=== PATIENT | male | born 1955 | race Two or more races ===

== ENCOUNTER 2024-02-27 09:17 | Inpatient (IN) | payer MEDICARE, MEDICAID, SELFPAY ==
[2024-02-27] VITALS (13 sets, daily range): BP systolic 115–171; BP diastolic 65–98; PULSE 71–104; RESP 13–21; TEMP 36.3–39.2; O2SAT 95–99; BMI 27.3
--- NOTE | 2024-02-27 09:33 | XR_ITS ---
Examination: CT brain head without contrast. 2-D sagittal coronal reconstructions Date and time of exam:February 27, 2024 1020 hours INDICATIONS: Patient fell today with injury to the head, head pain CTDI: vol (mGy):57.1 DLP: (mGycm):1241 Technique: Multiple CT axial sections of the brain have been obtained, 5 mm slice thickness. Contrast has not been administered. 2-D sagittal, coronal reconstructions have been obtained Low dose protocols were performed. One or more of the following dose reduction techniques were used; automated exposure control, adjustment of the mA and/or KV according to patient size, use of iterative reconstruction technique. Findings: No significant ventricular enlargement. Intra-axial or extra-axial hemorrhage density is not seen. No mass effect or midline shift Basal cisterns are not remarkable. Fourth ventricle is midline. Acute right frontal bone fracture extending to the superior orbital rim, superior orbital rim portion of the fracture axial image 29, the frontal bone fracture extending all the way to axial image 11 with mild associated scalp swelling IMPRESSION: Negative for acute hemorrhage mass effect or midline shift Right frontal nondisplaced skull fracture extending from the upper right frontal bone to the right supraorbital rim
--- NOTE | 2024-02-27 09:34 | XR_ITS ---
Examination: CT thoracic spine, without contrast. 2-D sagittal reconstructions. 2-D coronal reconstructions. 3-D reconstructions. Date and time of exam:February 27, 2024 1029 hours INDICATIONS: Patient fell today with injury to the upper back, upper back pain CTDI: vol (mGy):42.5 DLP: (mGycm):1778 Technique: Multiple 1.25 mm axial sections of the thoracic spine without intravenous contrast have been obtained. 2-D sagittal and coronal reconstructions have been obtained. 3-D reconstructions have been obtained. Low dose protocols were performed. One or more of the following dose reduction techniques were used; automated exposure control, adjustment of the mA and/or KV according to patient size, use of iterative reconstruction technique. Findings: Adequate alignment thoracic vertebral bodies on the lateral view Mineralization of the anterior longitudinal ligament No acute thoracic fracture No focal thoracic disc protrusion IMPRESSION: No acute thoracic fracture
--- NOTE | 2024-02-27 09:34 | XR_ITS ---
Examination: CT cervical spine without contrast 2-D sagittal reconstructions 2-D coronal reconstructions 3-D reconstructions. Exam date and time:February 27, 2024 1020 hours INDICATIONS: Patient fell today with injury to the neck, neck pain CTDI:vol (mGy) 14.2 DLP: (mGycm) 326 Technique: Multiple 2 mm axial sections of the cervical spine have been obtained. The coronal and sagittal reconstructions have been obtained. 3-D reconstructions have been obtained. Low dose protocols were performed. One or more of the following dose reduction techniques were used; automated exposure control, adjustment of the mA and/or KV according to patient size, use of iterative reconstruction technique. Findings: Axial sections demonstrate intact base of the skull. C1 exhibit satisfactory relationship to the odontoid. No acute cervical vertebral body fracture seen. Alignment posterior spinous processes satisfactory. Impression: No acute cervical fracture.
--- NOTE | 2024-02-27 09:34 | XR_ITS ---
Examination: CT maxillofacial, without intravenous contrast. 2-D sagittal reconstructions. 3-D reconstructions. Date and time of exam:February 27, 2024 10:20 AM INDICATIONS: Patient fell today with injury to the face, facial pain CTDI: vol (mGy):16.5 DLP: (mGycm):327 Technique: Multiple axial images of maxillofacial region, 3.0 mm slice thickness. 2-D sagittal and coronal reconstructions. 3-D reconstructions. Low dose protocols were performed. One or more of the following dose reduction techniques were used; automated exposure control, adjustment of the mA and/or KV according to patient size, use of iterative reconstruction technique. Findings: Frontal bone frontal sinuses intact Orbital rims intact The optic globes exhibit symmetry No nasal bone fracture No depression zygomatic arches Pterygoid plates maxilla and the mandible intact IMPRESSION: No acute facial fracture.
--- NOTE | 2024-02-27 09:34 | XR_ITS ---
Examination: CT lumbar spine, without contrast. 2-D sagittal reconstructions. 2-D coronal reconstructions. 3-D reconstructions. Date and time of exam:February 27, 2024 1029 hours INDICATIONS: Patient fell today with injury to the lower back, lower back pain CTDI: vol (mGy):50.6 DLP: (mGycm):1568 Technique: Multiple 1.25 mm axial sections of the lumbar spine without intravenous contrast have been obtained. 2-D sagittal and coronal reconstructions have been obtained. 3-D reconstructions have been obtained. Low dose protocols were performed. One or more of the following dose reduction techniques were used; automated exposure control, adjustment of the mA and/or KV according to patient size, use of iterative reconstruction technique. Findings: Prominent lumbar spondylosis Adequate alignment lumbar vertebral bodies on the lateral view No lumbar vertebral body compression fracture Lumbar pedicles, laminae, transverse and posterior spinous processes intact L5-S1 4 mm central lumbar disc bulge L4-L5 moderate overall spinal stenosis, 4 mm central lumbar disc bulge prominent facet arthropathy and thickening of ligamenta flava circumferentially narrowing the thecal sac including moderate left L4 ganglionic compression L3-L4 no disc protrusion L2-L3 moderate overall spinal stenosis, primarily facet arthropathy and thickening of ligamentum flavum IMPRESSION: No acute lumbar fracture
--- NOTE | 2024-02-27 09:34 | XR_ITS ---
Examination: CT chest, without intravenous contrast. CT abdomen, without intravenous contrast. CT pelvis, without intravenous contrast. 2-D sagittal and coronal reconstructions. 3-D reconstructions. Date and time of exam:February 27, 2024 1027 hours INDICATIONS: Patient fell today with injury to the chest and abdomen, chest pain abdomen pain CTDI vol (mgy) 17.5 DLP (MGycm)1420 Technique: Multiple CT images, 3.0 mm slice thickness, obtained chest, abdomen, pelvis, with the high-resolution 64 slice scanner.. Sagittal and coronal 2-D reconstructions are obtained. 3-D reconstructions Low dose protocols were performed. One or more of the following dose reduction techniques were used; automated exposure control, adjustment of the mA and/or KV according to patient size, use of iterative reconstruction technique. Findings: Transverse dimension ascending thoracic aorta 4.3 cm Thoracic aorta pulmonary arteries intact No hemopericardium No pneumothorax Opacity both lung bases, greater at the left lung base The manubrium and the body the sternum, thoracic and lumbar vertebral bodies appear intact Ribs appear intact No liver splenic or renal laceration, no perinephric hematoma Abdominal aorta intact, no free blood in the abdomen Cholelithiasis, negative for cholecystitis Negative for pneumoperitoneum No bowel obstruction Normal appendix No diverticulitis Urinary bladder intact No significant prostatomegaly Hips bones of the pelvis sacral segments intact IMPRESSION: Bibasilar opacity most consistent with pneumonia, but clinical correlation advised Mild aneurysmal dilatation ascending thoracic aorta Thoracic aorta pulmonary arteries intact No hemopericardium pneumothorax or hemothorax No abdominal parenchymal laceration Abdominal aorta intact No free blood in the abdomen Osseous structures appear intact
--- NOTE | 2024-02-27 10:16 | PD.EDFALL ---
ED Fall Injury RME/HPI General Chief Complaint: Fall Stated Complaint: FALL Time Seen by Provider: 02/27/24 09:28 Source: patient Arrival date/time: 02/27/24 09:17 Mode of arrival: EMS Limitations: no limitations RME / HPI RME / HPI Narrative: This section includes all my notes and documentations, including HPI, PE, MDM, Procedure Notes, and PLAN. Yuriy Hidalgo MD HPI: 68 year old male with history of hypertension presents to the ED BIBA for evaluation of back pain today. States about 4 days ago suffered a mechanical GLF while raking leaves. States he fell forward and since then has had pain to his lower back that radiates down both lower extremities. States in the past with previous falls, his pains resolved within a few days. However, noted pain today is not improving, prompting calling 911. Landed on right side of the face. No loss of consciousness. No headache or dizziness. Denies numbness/tingling/weakness. No other symptoms reported. ROS: Respiratory: negative except as documented in HPI. Gastrointestinal: negative except as documented in HPI. Genitourinary: negative except as documented in HPI. Musculoskeletal: negative except as documented in HPI. Skin: negative except as documented in HPI. Neurological: negative except as documented in HPI. Physical Exam: General: Alert and oriented. Writhing in pain. Eyes: Conjunctivae and lids clear. EOMI. PERRL. ENT: No nasal congestion. Pharynx normal. Tympanic membrane normal bilaterally. Neck: Supple. No tenderness. Heart: RRR. Lungs: No respiratory distress. Good air movement. No rhonchi, wheezing, rales. Chest: No tenderness. Abdomen: Soft and nontender. Normal bowel sounds. No distension. No rebound or guarding. Back: No tenderness. Legs: No clubbing, cyanosis, edema. Skin: Warm and dry. Neuro: Alert and oriented X 3. Cranial Nerves II-XII grossly intact. No peripheral motor deficits. Musculoskeletal: All major joints and bones are not tender with no limited ROM. I reviewed EMS notes. I reviewed all diagnostic test results. My interpretation of the chest x-ray is no acute findings. My review of the CT scan reports is pneumonia and skull fracture. Blood tests and urine tests remarkable for WBC 16.3 and UA showing 4+ bacteria. At this point, diagnoses include sepsis, UTI, pneumonia, mechanical fall, skull fracture, back pain. Treatment here included IV fluid, Rocephin, Zithromax, Tylenol, ibuprofen, and morphine. No significant improvement noted subjectively and objectively. I discussed the case with our hospitalist. About the presentation and exam and diagnostics and treatments here. And need of further care in the hospital. Will accept the patient. Yuriy Hidalgo MD Related Data Home Medications ?Medication ?Instructions ?Recorded ?Confirmed Lisinopril * (ZESTRIL *) PO QDAY #0 tabs 07/14/15 tramadol 50 mg tablet (Ultram) 50 mg PO Q4HR PRN PAIN #0 tabs 07/14/15 Allergies Allergy/AdvReac Type Severity Reaction Status Date / Time No Known Allergies Allergy Verified 02/27/24 09:34 Review of Systems Review of Systems Systems Reviewed: All systems reviewed, normal except as documented Past Medical History Past Medical History CARDIAC: Negative Congestive Heart Failure RESPIRATORY: Positive Sleep Apnea; Negative Chronic Obstructive Pulmonary Disease (COPD) GENITOURINARY: Negative Renal Disease ENDOCRINE: Negative Diabetes Mellitus Type 1 or Diabetes Mellitus Type 2 Social History SMOKING STATUS: Never smoker ED Exam Narrative Physical exam: As noted in HPI General Limitations: Present no limitations Course Quality Measures Current suspected stage: sepsis Possible source: genitourinary Blood cultures ordered: completed in ED Antibiotic ordered: Yes Pertinent labs: 02/27/24 11:12 Lactic Acid 1.8 mMol/L (0.4-2.0) Procalcitonin < 0.04 ng/ml (0.0-0.49) sepsis Orders Category Date Time Status Admit to Inpatient Status Routine Admission 02/27/24 15:41 Active Patient Condition Routine Admission 02/27/24 15:39 Ordered Bedrest NOW Care 02/27/24 15:41 Active Bedside COVID-19 Antigen Test NOW Care 02/27/24 10:27 Active Bedside Influenza A&B Antigen Test NOW Care 02/27/24 10:27 Completed COVID-19 Screening Questionnaire NOW Care 02/27/24 15:27 Active Decision to Admit X1 Care 02/27/24 15:27 Completed Neuro Check Q4H Care 02/27/24 15:39 Active Notify provider NEEDED Care 02/27/24 15:39 Active Saline [Insert IV] NOW Care 02/27/24 11:18 Active Referral - Press Assistant And Feeder Stat Cons 02/27/24 12:30 Active Diet Regular Diet 02/27/[address] cervical spine wo con Stat Exams 02/27/24 09:[address] chest abdomen pelvis wo Stat Exams 02/27/24 09:[address] facial bones wo con Stat Exams 02/27/24 09:[address] head/brain wo con Stat Exams 02/27/24 09:[address] lumbar spine wo con Stat Exams 02/27/24 09:[address] thoracic spine wo con Stat Exams 02/27/24 09:34 Completed XR chest 1V portable Stat Exams 02/27/24 13:12 Completed Basic Metabolic Panel AM DRAW Lab 02/28/24 05:00 Ordered Basic Metabolic Panel AM DRAW Lab 02/29/24 05:00 Ordered Basic Metabolic Panel AM DRAW Lab 03/01/24 05:00 Ordered Blood Culture (Lab) Stat Lab 02/27/24 11:12 Received CBC AM DRAW Lab 02/28/24 05:00 Ordered CBC AM DRAW Lab 02/29/24 05:00 Ordered CBC AM DRAW Lab 03/01/24 05:00 Ordered CBC Stat Lab 02/27/24 11:12 Completed CMP [Comprehensive Metabolic Panel] Stat Lab 02/27/24 11:12 Completed Lactate (Lactic Acid) Stat Lab 02/27/24 11:12 Completed Magnesium AM DRAW Lab 02/28/24 05:00 Ordered Magnesium Stat Lab 02/27/24 11:12 Completed Procalcitonin Stat Lab 02/27/24 11:12 Completed RSV [Respiratory Syncytial Virus Ag] Stat Lab 02/27/24 10:28 Ordered Strep A Rapid Stat Lab 02/27/24 10:27 Ordered UA [Urinalysis] Stat Lab 02/27/24 11:33 Completed Urine Culture Routine Lab 02/27/24 11:33 Received Acetaminophen Tab [Tylenol Tab] Med 02/27/24 10:26 Discontinued 1,000 mg PO X1 ONE Azithromycin Inj [Zithromax Inj] 500 mg Med 02/27/24 11:45 Discontinued Sodium Chloride 0.9% 250 ml [Ns] 250 ml IV X1 Heparin Inj Med 02/27/24 22:00 Active 5,000 unit SC Q8HR Ibuprofen Tab [Motrin Tab] Med 02/27/24 10:26 Discontinued 800 mg PO X1 ONE Morphine Inj Med 02/27/24 09:32 Discontinued 10 mg IM X1 ONE Morphine Inj Med 02/27/24 11:10 Discontinued 6 mg IVP X1 ONE Ondansetron Inj [Zofran Inj] Med 02/27/24 15:39 Active 4 mg IV Q6H PRN Ringers Lactated 1000 ml [Lactated Ringers] 1,000 ml Med 02/27/24 15:45 Active IV 75 mls/hr Sodium Chloride 0.9% 1000 ml [Ns] 1,000 ml Med 02/27/24 11:18 Discontinued IV 999 mls/hr Sodium Chloride 0.9% 1000 ml [Ns] 1,000 ml Med 02/27/24 12:54 Discontinued IV 999 mls/hr cefTRIAXone/D5w 1gm IV premix [Rocephin/D5w 1gm IV Med 02/28/24 09:00 Active premix] 50 ml IV QDAY cefTRIAXone/D5w 1gm IV premix [Rocephin/D5w 1gm IV Med 02/27/24 11:18 Discontinued premix] 50 ml IV X1 Code Status Routine Oth 02/27/24 15:39 Ordered Vital Signs Vital signs: Vital Signs Temperature 102.5 F H 02/27/24 09:56 Pulse Rate 94 02/27/24 09:56 Respiratory Rate 19 02/27/24 09:56 Blood Pressure 171/98 H 02/27/24 09:56 Pulse Oximetry (%) 97 02/27/24 09:56 Oxygen Delivery Method Room Air 02/27/24 09:56 Pulse ox is 97% on room air which is adequate. Fall MDM Narrative MDM Narrative:: Melissa Fong am scribing for and in the presence of Dr. Hidalgo. Patient data External records reviewed:: EMS form Clinical information provided by:: patient and EMS Social determinants that could affect healthcare access:: none Patient has the following chronic illnesses:: None reported How is presenting disease/condition affected by chronic disease/condition?: uneffected by Evaluation data The following diagnostics were reviewed and interpreted by me:: lab results and radiology exam(s) Lab and/or radiology exams considered but not ordered:: None Interpretation Summary: Ordering Physician: Yuriy Hidalgo MD Date of Service: 02/27/24 Procedure(s): CT head/brain wo con Accession Number(s): [id number] cc: Yuriy Hidalgo MD; Zackery Arteaga MD~ Examination: CT brain head without contrast. 2-D sagittal coronal reconstructions Date and time of exam:February 27, 2024 1020 hours INDICATIONS: Patient fell today with injury to the head, head pain CTDI: vol (mGy):57.1 DLP: (mGycm):1241 Technique: Multiple CT axial sections of the brain have been obtained, 5 mm slice thickness. Contrast has not been administered. 2-D sagittal, coronal reconstructions have been obtained Low dose protocols were performed. One or more of the following dose reduction techniques were used; automated exposure control, adjustment of the mA and/or KV according to patient size, use of iterative reconstruction technique. Findings: No significant ventricular enlargement. Intra-axial or extra-axial hemorrhage density is not seen. No mass effect or midline shift Basal cisterns are not remarkable. Fourth ventricle is midline. Acute right frontal bone fracture extending to the superior orbital rim, superior orbital rim portion of the fracture axial image 29, the frontal bone fracture extending all the way to axial image 11 with mild associated scalp swelling IMPRESSION: Negative for acute hemorrhage mass effect or midline shift Right frontal nondisplaced skull fracture extending from the upper right frontal bone to the right supraorbital rim Dictated By: Zackery Arteaga MD Signed By: <Electronically signed by Zackery Arteaga MD in OV> 02/27/24 1132 Ordering Physician: Yuriy Hidalgo MD Date of Service: 02/27/24 Procedure(s): CT cervical spine wo con Accession Number(s): [id number] cc: Yuriy Hidalgo MD; Zackery Arteaga MD~ Examination: CT cervical spine without contrast 2-D sagittal reconstructions 2-D coronal reconstructions 3-D reconstructions. Exam date and time:February 27, 2024 1020 hours INDICATIONS: Patient fell today with injury to the neck, neck pain CTDI:vol (mGy) 14.2 DLP: (mGycm) 326 Technique: Multiple 2 mm axial sections of the cervical spine have been obtained. The coronal and sagittal reconstructions have been obtained. 3-D reconstructions have been obtained. Low dose protocols were performed. One or more of the following dose reduction techniques were used; automated exposure control, adjustment of the mA and/or KV according to patient size, use of iterative reconstruction technique. Findings: Axial sections demonstrate intact base of the skull. C1 exhibit satisfactory relationship to the odontoid. No acute cervical vertebral body fracture seen. Alignment posterior spinous processes satisfactory. Impression: No acute cervical fracture. Dictated By: Zackery Arteaga MD Signed By: <Electronically signed by Zackery Arteaga MD in OV> 02/27/24 1127 Ordering Physician: Yuriy Hidalgo MD Date of Service: 02/27/24 Procedure(s): CT chest abdomen pelvis wo Accession Number(s): [id number] cc: Yuriy Hidalgo MD; Zackery Arteaga MD~ Examination: CT chest, without intravenous contrast. CT abdomen, without intravenous contrast. CT pelvis, without intravenous contrast. 2-D sagittal and coronal reconstructions. 3-D reconstructions. Date and time of exam:February 27, 2024 1027 hours INDICATIONS: Patient fell today with injury to the chest and abdomen, chest pain abdomen pain CTDI vol (mgy) 17.5 DLP (MGycm)1420 Technique: Multiple CT images, 3.0 mm slice thickness, obtained chest, abdomen, pelvis, with the high-resolution 64 slice scanner.. Sagittal and coronal 2-D reconstructions are obtained. 3-D reconstructions Low dose protocols were performed. One or more of the following dose reduction techniques were used; automated exposure control, adjustment of the mA and/or KV according to patient size, use of iterative reconstruction technique. Findings: Transverse dimension ascending thoracic aorta 4.3 cm Thoracic aorta pulmonary arteries intact No hemopericardium No pneumothorax Opacity both lung bases, greater at the left lung base The manubrium and the body the sternum, thoracic and lumbar vertebral bodies appear intact Ribs appear intact No liver splenic or renal laceration, no perinephric hematoma Abdominal aorta intact, no free blood in the abdomen Cholelithiasis, negative for cholecystitis Negative for pneumoperitoneum No bowel obstruction Normal appendix No diverticulitis Urinary bladder intact No significant prostatomegaly Hips bones of the pelvis sacral segments intact IMPRESSION: Bibasilar opacity most consistent with pneumonia, but clinical correlation advised Mild aneurysmal dilatation ascending thoracic aorta Thoracic aorta pulmonary arteries intact No hemopericardium pneumothorax or hemothorax No abdominal parenchymal laceration Abdominal aorta intact No free blood in the abdomen Osseous structures appear intact Dictated By: Zackery Arteaga MD Signed By: <Electronically signed by Zackery rAteaga MD in OV> 02/27/24 1125 Ordering Physician: Yuriy Hidalgo MD Date of Service: 02/27/24 Procedure(s): CT facial bones [facility] Accession Number(s): [id number] cc: Yuriy Hidalgo MD; Zackery Arteaga MD~ ADDENDUM ADDENDUM #1 Addendum: Please see the CT brain report for description of right frontal bone fracture which extends to the right supraorbital rim ORIGINAL REPORT Examination: CT maxillofacial, without intravenous contrast. 2-D sagittal reconstructions. 3-D reconstructions. Date and time of exam:February 27, 2024 10:20 AM INDICATIONS: Patient fell today with injury to the face, facial pain CTDI: vol (mGy):16.5 DLP: (mGycm):327 Technique: Multiple axial images of maxillofacial region, 3.0 mm slice thickness. 2-D sagittal and coronal reconstructions. 3-D reconstructions. Low dose protocols were performed. One or more of the following dose reduction techniques were used; automated exposure control, adjustment of the mA and/or KV according to patient size, use of iterative reconstruction technique. Findings: Frontal bone frontal sinuses intact Orbital rims intact The optic globes exhibit symmetry No nasal bone fracture No depression zygomatic arches Pterygoid plates maxilla and the mandible intact IMPRESSION: No acute facial fracture. Addendum Dictated By: Zackery Arteaga MD Addendum Signed By: <Electronically signed by Zackery Arteaga MD in OV> 02/27/241131 Addendum Cosigned By: DD/ /11/1132 TD/TT: 02/27/2401/11/1132 Examination: CT maxillofacial, without intravenous contrast. 2-D sagittal reconstructions. 3-D reconstructions. Date and time of exam:February 27, 2024 10:20 AM INDICATIONS: Patient fell today with injury to the face, facial pain CTDI: vol (mGy):16.5 DLP: (mGycm):327 Technique: Multiple axial images of maxillofacial region, 3.0 mm slice thickness. 2-D sagittal and coronal reconstructions. 3-D reconstructions. Low dose protocols were performed. One or more of the following dose reduction techniques were used; automated exposure control, adjustment of the mA and/or KV according to patient size, use of iterative reconstruction technique. Findings: Frontal bone frontal sinuses intact Orbital rims intact The optic globes exhibit symmetry No nasal bone fracture No depression zygomatic arches Pterygoid plates maxilla and the mandible intact IMPRESSION: No acute facial fracture. Dictated By: Zackery Arteaga MD Signed By: <Electronically signed by Zackery Arteaga MD in OV> 02/27/24 1129 Ordering Physician: Yuriy Hidalgo MD Date of Service: 02/27/24 Procedure(s): CT lumbar spine wo con Accession Number(s): [id number] cc: Yuriy Hidalgo MD; Zackery Arteaga MD~ Examination: CT lumbar spine, without contrast. 2-D sagittal reconstructions. 2-D coronal reconstructions. 3-D reconstructions. Date and time of exam:February 27, 2024 1029 hours INDICATIONS: Patient fell today with injury to the lower back, lower back pain CTDI: vol (mGy):50.6 DLP: (mGycm):1568 Technique: Multiple 1.25 mm axial sections of the lumbar spine without intravenous contrast have been obtained. 2-D sagittal and coronal reconstructions have been obtained. 3-D reconstructions have been obtained. Low dose protocols were performed. One or more of the following dose reduction techniques were used; automated exposure control, adjustment of the mA and/or KV according to patient size, use of iterative reconstruction technique. Findings: Prominent lumbar spondylosis Adequate alignment lumbar vertebral bodies on the lateral view No lumbar vertebral body compression fracture Lumbar pedicles, laminae, transverse and posterior spinous processes intact L5-S1 4 mm central lumbar disc bulge L4-L5 moderate overall spinal stenosis, 4 mm central lumbar disc bulge prominent facet arthropathy and thickening of ligamenta flava circumferentially narrowing the thecal sac including moderate left L4 ganglionic compression L3-L4 no disc protrusion L2-L3 moderate overall spinal stenosis, primarily facet arthropathy and thickening of ligamentum flavum IMPRESSION: No acute lumbar fracture Dictated By: Zackery Arteaga MD Signed By: <Electronically signed by Zackery Arteaga MD in OV> 02/27/24 1127 Ordering Physician: Yuriy Hidalgo MD Date of Service: 02/27/24 Procedure(s): CT thoracic spine wo con Accession Number(s): [id number] cc: Yuriy Hidalgo MD; Zackery Arteaga MD~ Examination: CT thoracic spine, without contrast. 2-D sagittal reconstructions. 2-D coronal reconstructions. 3-D reconstructions. Date and time of exam:February 27, 2024 1029 hours INDICATIONS: Patient fell today with injury to the upper back, upper back pain CTDI: vol (mGy):42.5 DLP: (mGycm):1778 Technique: Multiple 1.25 mm axial sections of the thoracic spine without intravenous contrast have been obtained. 2-D sagittal and coronal reconstructions have been obtained. 3-D reconstructions have been obtained. Low dose protocols were performed. One or more of the following dose reduction techniques were used; automated exposure control, adjustment of the mA and/or KV according to patient size, use of iterative reconstruction technique. Findings: Adequate alignment thoracic vertebral bodies on the lateral view Mineralization of the anterior longitudinal ligament No acute thoracic fracture No focal thoracic disc protrusion IMPRESSION: No acute thoracic fracture Dictated By: Zackery Arteaga MD Signed By: <Electronically signed by Zackery Arteaga MD in OV> 02/27/24 1133 Ordering Physician: Yuriy Hidalgo MD Date of Service: 02/27/24 Procedure(s): XR chest 1V portable Accession Number(s): [id number] cc: Yuriy Hidalgo MD; Zackery Arteaga MD; NO PRIMARY/FAMILY,PHYSICIAN~ Examination: AP chest single view Technique one AP portable upright chest single view Exam date and time: February 27, 2024 1354 hours INDICATIONS: Shortness of breath today. FINDINGS: Normal heart size Ectatic thoracic aorta No lobar pneumonia or pulmonary edema Prominent osteopenia IMPRESSION: No pneumonia or pulmonary edema Dictated By: Zackery Arteaga MD Signed By: <Electronically signed by Zackery Arteaga MD in OV> 02/27/24 1513 Medications / Prescriptions Medications or Prescriptions considered but not ordered:: None Medication administrations:: Medication Administration History Acetaminophen (Acetaminophen 325 Mg Tablet) 650 mg PO Q6HR PRN PRN Reason: FEVER >101 Stop: 03/28/24 15:51 Heparin Sodium (Porcine) (Heparin Sod Inj 5000 Unit/Ml Vial) 5,000 unit SC Q8HR [facility] Stop: 03/12/24 21:59 Lactated Ringer's (Lactated Ringers) 1,000 mls @ 75 mls/hr IV .[id number] [facility] Stop: 02/28/24 15:44 Ceftriaxone Sodium/Dextrose (Rocephin/D5w 1gm Iv Premix) 50 mls @ 100 mls/hr IV QDAY [facility] Stop: 03/06/24 08:59 Ondansetron HCl (Ondansetron Inj 2 Mg/Ml Inj 2 Ml) 4 mg IV Q6H PRN; Protocol PRN Reason: NAUSEA OR VOMITING Stop: 03/28/24 15:38 Discontinued Medications Acetaminophen (Acetaminophen 325 Mg Tablet) 1,000 mg PO X1 ONE Stop: 02/27/24 10:27 Last Admin: 02/27/24 11:12 Dose: 1,000 mg Documented By: Sodium Chloride (Ns) 1,000 mls @ 999 mls/hr IV .Q1H1M ONE Stop: 02/27/24 12:18 Last Infusion: 02/27/24 12:25 Dose: Infused Documented By: Admin: 02/27/24 11:28 Dose: 999 mls/hr Documented By: Ceftriaxone Sodium/Dextrose (Rocephin/D5w 1gm Iv Premix) 50 mls @ 100 mls/hr IV X1 ONE Stop: 02/27/24 11:47 Last Infusion: 02/27/24 12:00 Dose: Infused Documented By: Admin: 02/27/24 11:27 Dose: 100 mls/hr Documented By: Azithromycin 500 mg/ Sodium (Chloride) 250 mls @ 250 mls/hr IV X1 ONE Stop: 02/27/24 12:44 Last Infusion: 02/27/24 13:25 Dose: Infused Documented By: Admin: 02/27/24 12:21 Dose: 250 mls/hr Documented By: Sodium Chloride (Ns) 1,000 mls @ 999 mls/hr IV .Q1H1M ONE Stop: 02/27/24 13:54 Last Infusion: 02/27/24 15:09 Dose: Infused Documented By: Admin: 02/27/24 14:04 Dose: 999 mls/hr Documented By: GM Ibuprofen (Ibuprofen Tab 400 Mg Tablet) 800 mg PO X1 ONE Stop: 02/27/24 10:27 Last Admin: 02/27/24 11:13 Dose: 800 mg Documented By: GM Morphine Sulfate (Morphine Sulf Inj 10 Mg/Ml Vial) 10 mg IM X1 ONE Stop: 02/27/24 09:33 Last Admin: 02/27/24 11:10 Dose: Not Given Documented By: GM Non-Admin Reason: Cancelled by Provider Morphine Sulfate (Morphine Sulf Inj 10 Mg/Ml Vial) 6 mg IVP X1 ONE Stop: 02/27/24 11:11 Last Admin: 02/27/24 11:40 Dose: Not Given Documented By: GM Non-Admin Reason: Patient Refused See chart Consultations Consultation(s) initiated? (list below): Yes Consultation #1 (Physician, Specialty, Details): I spoke with transfer nurse at [facility]. Discussed patients PMHx, HPI, ED course, exam findings, labs, and radiology results. Time: 12:47 Consultation #2 (Physician, Specialty, Details): I spoke with neurosurgeon Dr. Yu at [facility]. Discussed patients PMHx, HPI, ED course, exam findings, labs, and radiology results. Reports patient does not require transfer at this time. Time: 15:23 Consultation #3 (Physician, Specialty, Details): I spoke with hospitalist Dr. Conner. Discussed patients PMHx, HPI, ED course, exam findings, labs, and radiology results. The hospitalist agree to accept the patient for admission. Time: 15:30 Diagnosis Fall Differential Diagnosis: syncope, compression fracture and other (CVA, brain tumor, [facility] bleed, skull fracture, UTI, pneumonia, sepsis, electrolyte abnormalities) Most likely diagnosis given after review of the tests above:: Sepsis Acute UTI Pneumonia Fall at home Skull fracture Back pain Admission Indicated Admission indicated?: indicated Explain why admission is indicated or not indicated:: Sepsis and UTI and pneumonia and skull fracture Admission Request Was there a request for admission?: Yes Admission Attestation Admission request attestation: Discussed case with Hospitalist service regarding admission. Discussed patients ED course, exam findings, labs, and radiology results. The Hospitalist [agrees,declines] to accept the patient for admission. Disposition Plan Disposition Plan: Admit Discharge Plan Plan Patient Disposition: Admit Acute Care w/in Hospital Problem List Clinical Impression: Sepsis, Acute UTI, Pneumonia, Fall at home, Skull fracture, Back pain
--- NOTE | 2024-02-27 10:20 | PC.NURSE ---
Report received at this time; per report, pt coming from home s/p GLF 4-5 days ago; pt was raking outside during the incident; no LOC and does not take blood thinners. Pt keeps stating he is homeless but per family, he lives with them. GCS14 but alert and oriented. PMH of sleep apnea, does not take any medications. Pt currently c/o mid and lower back pain 10/. Upon arrival, pt clothing were unkempt and dirty with soil. Pt able to answer A&O questions appropriately (A&Ox4) but states, I have no family. Pt connected to monitors at this time.
--- NOTE | 2024-02-27 11:04 | PC.NURSE ---
Ice packs applied on pt's knees and axillary bilat.
[2024-02-27] MEDS: ACETAMINOPHEN 325 MG TABLET 1000 MG PO (11:12)
[2024-02-27] MEDS: IBUPROFEN TAB 400 MG TABLET 800 MG PO (11:13)
[2024-02-27 11:22] LABS: Lactate (Lactic Acid) 1.8 mMol/L (0.4-2.0)
--- NOTE | 2024-02-27 11:22 | PC.NURSE ---
per pt, I don't want the morphine right now. RN to hold giving morphine to pt at this time
[2024-02-27 11:24] LABS: Basophils % (Auto) 0 % (0-2.5); Eosinophils # (Auto) 0.1 Thou/mm3 (0.0-0.5); Eosinophils % (Auto) 1 % (0-10); Hematocrit 31.9 % (41.0-53.0); Hemoglobin 9.9 g/dL (13.5-16.0); Immature Granulocytes % (Auto) 0 % (0-0); Immature Granulocytes Auto 0.04 Thou/mm3 (0.00-0.00); Lymphocytes # (Auto) 0.8 Thou/mm3 (1.0-4.8); Lymphocytes % (Auto) 5 % (10-50); Mean Corpuscular Hemoglobin 23.6 pg (25.0-35.0); Mean Corpuscular Volume 76 fL (80-100); Monocytes # (Auto) 1.1 Thou/mm3 (0.0-0.8); Monocytes % (Auto) 6 % (0-12); Neutrophils # (Auto) 14.3 Thou/mm3 (1.8-7.7); Neutrophils % (Auto) 88 % (37-80); Nucleated Red Blood Cell % 0 /100 WBC (0); Platelet Count 332 Thou/mm3 (140-440); RDW Standard Deviation 43.9 fL (35.1-43.9); Red Blood Count 4.19 Miln/mm3 (4.50-5.90); White Blood Count 16.3 Thou/mm3 (3.8-10.6)
[2024-02-27] MEDS: cefTRIAXone/D5w 1gm IV premix 50 ML IV (11:27)
[2024-02-27] MEDS: SODIUM CHLORIDE 0.9% 1000 ML 1,000 ML 999 ML IV ×2 (11:28→14:04)
[2024-02-27 11:40] LABS: Alanine Aminotransferase 12 U/L (10-49); Albumin/Globulin Ratio 1.3 (1.2-2.2); Alkaline Phosphatase 110 U/L (46-116); Anion Gap 7 (7-16); Aspartate Amino Transferase 15 U/L (0-34); BUN/Creatinine Ratio 23 Ratio (12-20); Bilirubin,Total 0.6 mg/dL (0.3-1.2); Blood Urea Nitrogen 14 mg/dL (9-23); Calcium 8.4 mg/dL (8.3-10.6); Calcium (Corrected) 8.4 mg/dL (8.5-10.1); Carbon Dioxide 24.8 mMol/L (20.0-31.0); Chloride 105 mMol/L (98-107); Creatinine (Component) 0.6 mg/dL (0.6-1.3); Estimated Creatinine Clearance 117.2 mL/min (>60); Globulin 3.2 gm/dL (2.3-3.5); Glucose 98 mg/dL (74-106); Magnesium 1.7 mg/dL (1.6-2.6); Osmolality,Calculated 274 (275-295); Potassium 3.6 mMol/L (3.4-5.1); Sodium 137 mMol/L (136-145); Total Protein 7.2 gm/dL (5.7-8.2); eGFR > 60 See Note
[2024-02-27 11:54] LABS: Collection Type, Urine Clean Catch; Squamous Epithelial Cell,Urine 0 /hpf (0-5)
[2024-02-27 12:11] LABS: Bacteria,Urine 4+; Bilirubin,Urine Negative (Negative); Blood,Urine Negative (Negative); Clarity,Urine Clear (Clear/Hazy); Color,Urine Lt-Yellow (Lt Yel-Yel); Glucose, Urine Negative (Negative); Ketones,Urine Negative (Negative); Leukocyte Esterase,Urine Positive (Negative); Nitrite,Urine Positive (Negative); PH,Urine 6.5 (5.0-7.0); Protein,Urine 1+ (Neg - Trace); RBC,Urine 2 /hpf (0-3); Specific Gravity,Urine 1.024 (1.001-1.035); Urobilinogen,Urine Negative mg/dL (0.0-1.0); WBC,Urine 20 /hpf (0-5)
[2024-02-27] MEDS: AZITHROMYCIN INJ 500 MG in SODIUM CHLORIDE 0.9% 250 ML 250 ML 250 MG IV (12:21)
--- NOTE | 2024-02-27 12:40 | PC.CM ---
Addendum entered by Lena Marie RN 02/27/24 15:35: I spoke to Dr. Hidalgo and he stats patient does not need to be transferred afterall. He states he spoke to Dr. Yu at [facility] and patient does not need neurosurgery services. Patient will be admitted to our hospital. I called [facility] and I cancelled the transfer. Addendum entered by Lena Marie RN 02/27/24 15:27: I received a call back from Eva at [facility] . She states her doctor Dr. Yu neurology, states patient does not need higher level care for neurology. [place] states patient should have follow up with [facility]. [place] states they send their patient's to [facility] for OMFS. Addendum entered by Lena Marie RN 02/27/24 15:01: I called [facility] and spoke to transfer nurse. she stated they have reached out to their doctor and are waiting for a call back. I called [facility] and initiated a transfer and I faxed over information. Addendum entered by Lena Marie RN 02/27/24 12:47: I called [facility] and initiated transfer with Elayne. and I faxed over information and I will push over images. Original Note: [id number] I received a referal and a call from Dr. Hidalgo stating patient needs to be transferred for neurosurgery for Right frontal nondisplaced skull fracture extending from the upper right frontal bone to the right supraorbital rim.
--- NOTE | 2024-02-27 13:12 | XR_ITS ---
Examination: AP chest single view Technique one AP portable upright chest single view Exam date and time: February 27, 2024 1354 hours INDICATIONS: Shortness of breath today. FINDINGS: Normal heart size Ectatic thoracic aorta No lobar pneumonia or pulmonary edema Prominent osteopenia IMPRESSION: No pneumonia or pulmonary edema
--- NOTE | 2024-02-27 14:30 | PC.NURSE ---
Per Dr. Harshil Hidalgo, pt ok to eat at this time. Pt given turkey sandwich and cranberry juice.
[2024-02-27 15:26] LABS: Procalcitonin < 0.04 ng/ml (0.0-0.49)
--- NOTE | 2024-02-27 15:45 | ESHP_ITS ---
Documentation for date of: 02/27/24 HPI - Hospitalist History of Present Illness History of present illness: 68-year-old male with history of hypertension who presented with a chief complaint of generalized weakness and ground-level fall. Patient was in his usual state of health until few days prior to admission. Patient felt very weak and described it as having globus in his hands and something that restricts him from doing his activities. Due to his weakness, he felt that his legs are heavy and had a ground-level fall. He hit his head. He reported no nausea or vomiting. He reported no weakness in 1 side of his body or change in sensation. Patient does not take any medications. Because he continued to be weak, he came to the ED. In the ED, he was febrile as high as 102.5. He was tachycardic. Labs showed leukocytosis. Urinalysis showed UTI picture. CT head showed right frontal nondisplaced skull fracture extending from the upper right frontal bone to the right supraorbital rim. No brain bleed or other acute intracranial findings. Other imaging studies of his body showed no other acute fractures. Initially patient was rejected for admission pending neurosurgical evaluation. Discussed with neurosurgery in [facility] who recommended conservative management with pain medications and cold pads as her fracture happened several days ago and there is no focal neurodeficits. He was admitted for further management. Past medical history as above He does not take any medications at home Reported no known allergies He does not smoke cigarettes, drink alcohol, or use any illicit drugs currently. He used marijuana in the past He reported history of diabetes in his father. No history of cancers No prior surgeries Review of Systems Review of Systems Narrative Review of Systems: 12 point of system reviewed. Negative except as mentioned above. Meds Home Medications and Allergies Home Medications ?Medication ?Instructions ?Recorded ?Confirmed ?Type Lisinopril * (ZESTRIL *) PO QDAY #0 tabs 07/14/15 History tramadol 50 mg tablet (Ultram) 50 mg PO Q4HR PRN PAIN #0 tabs 07/14/15 History Allergies Allergy/AdvReac Type Severity Reaction Status Date / Time No Known Allergies Allergy Verified 02/27/24 09:34 Exam Vital Signs Temp Pulse Resp BP Pulse Ox O2 Del Method 98.4 F 75 15 115/79 97 Room Air 02/27/24 15:35 02/27/24 15:35 02/27/24 15:35 02/27/24 15:35 02/27/24 15:35 02/27/24 15:35 Narrative General: Alert and oriented x3. In no acute distress. Eyes: Pupils are equal and reactive to light bilaterally. HEENT: Atraumatic, normocephalic. No JVD noted. Mild tenderness over the right skull without open wounds or evidence of CSF leak. Cardiovascular: Normal S1 and S2. Normal rate and regular rhythm. No murmurs appreciated. No peripheral pitting edema noted. No JVD noted. Respiratory: No respiratory distress. Lungs are clear to auscultation bilaterally. No wheezing or crackles heard. Abdomen: Soft, nontender, nondistended. Skin: No rash. Musculoskeletal: No gross injuries. Able to move all 4 extremities. Neuro: Alert and oriented x3. Sensation is intact throughout. Strength is 5/5 and symmetric. No focal neuro deficits. Psych: Normal affect and mood. Results - Hospitalist Labs Diagrams: 02/27/24 11:12 02/27/24 11:12 Labs: Short CBC 02/27/24 Range/Units 11:12 WBC 16.3 H (3.8-10.6) Thou/mm3 Hgb 9.9 L (13.5-16.0) g/dL Hct 31.9 L (41.0-53.0) % Plt Count 332 (140-440) Thou/mm3 BMP 02/27/24 11:12 Sodium 137 Potassium 3.6 Chloride 105 Carbon Dioxide 24.8 BUN 14 Creatinine 0.6 Glucose 98 Calcium 8.4 Liver Function 02/27/24 Range/Units 11:12 Total Bilirubin 0.6 (0.3-1.2) mg/dL AST 15 (0-34) U/L ALT 12 (10-49) U/L Alkaline Phosphatase 110 (46-116) U/L Albumin 4.0 (3.4-4.8) gm/dL Urine 02/27/24 Range/Units 11:33 Urine Color Lt-Yellow (Lt Yel-Yel) Urine Clarity Clear (Clear/Hazy) Urine pH 6.5 (5.0-7.0) Ur Specific [place] 1.024 (1.001-1.035) Urine Protein 1+ A (Neg - Trace) Urine Glucose (UA) Negative (Negative) Assessment & Plan -Hospitalist Patient Synopsis 68-year-old male who presented after a ground-level fall and was found to have sepsis secondary to UTI. Sepsis secondary to acute UTI Leukocytosis He meets sepsis criteria with fevers, tachycardia, leukocytosis, and source of infection which is a urine given his UA. He received IV fluids in the ED and IV ceftriaxone. Likely contributing to his generalized weakness that ultimately led to his fall. Plan: Admit to inpatient Continue IV ceftriaxone Continue IV fluids Management of nausea/fevers as needed Follow-up urine culture Trend WBC Ground-level fall Closed skull fracture CT head showed right frontal nondisplaced skull fracture extending from the upper right frontal bone to the right supraorbital rim No focal neurodeficits or evidence of CSF leak Discussed with neurosurgery at [facility]: Recommended no transfer but conservative management. Will admit to our [facility]. Plan: Pain management as needed Every 4 hour neurochecks Fall precautions PT evaluation CODE STATUS is DNR/DNI: Patient understands what that means and expressed his wishes not to be resuscitated in case of heart stop Diet is regular Admitting to telemetry DVT prophylaxis with subcutaneous heparin Quality Measures Quality Measures VTE prophylaxis (Subcutaneous heparin) Advance care planning discussed with:: patient
--- NOTE | 2024-02-27 16:37 | PC.NURSE ---
RN spoke to Dr. Ector Conner and clarified if MD wants LR drip for maintenance fluid or if NS is ok due to shortage of LR in facility. Per Dr. Conner verbal order with readback, ok to cancel LR drip and use NS instead of maintenance fluid.
[2024-02-27] MEDS: SODIUM CHLORIDE 0.9% 1000 ML 1,000 ML 75 ML IV (16:49)
--- NOTE | 2024-02-27 16:52 | PC.NURSE ---
Attempted to give report at this time; RN unavailable at this time.
[2024-02-27 17:14] LABS: Strep A Rapid Negative (Negative)
--- NOTE | 2024-02-27 17:17 | PC.CC ---
Pt Campos Presley is a 68 yr old male admitted to hospitalist services for Urosepsis. 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 Pt was asleep at time of encounter and did not respond to name being called.
[2024-02-27 17:30] LABS: Respiratory Syncytial Virus Ag Negative (Negative)
--- NOTE | 2024-02-27 18:03 | PC.NURSE ---
Patient provided with dinner tray.
[2024-02-27] MEDS: MELATONIN 3 MG TABLET PO (21:48)
[2024-02-28] VITALS: BP 154/84; PULSE 71; PULSE 75; RESP 18; TEMP 36.2; O2SAT 97
--- NOTE | 2024-02-28 00:04 | PC.NURSE ---
Pt noncompliant with fall risk precautions. He keeps taking off his nonslip socks, refusing to put on yellow gown, and keeps wanting to get out of bed. Pt educated about the risks for falling especially because hes very weak but pt is still noncompliant
--- NOTE | 2024-02-28 00:30 | PC.NURSE ---
Pt now has avasure in place due to noncompliance to fall precautions
--- NOTE | 2024-02-28 03:59 | PC.NURSE ---
SONIA Enrique went in room to assess patient and he is awake and looked uncomfortable. SONIA Enrique went to ask if patient is in pain and he said he has 8/10 pain on his back and legs. MD العلي made aware that patient started complaining of 8/10 pain. No pain meds ordered in the may. said she will review chart and order some pain medications
[2024-02-28 04:00] VITALS: BP 138/74; PULSE 67; PULSE 73; RESP 18; TEMP 36.2; O2SAT 96
[2024-02-28] MEDS: KETOROLAC INJ 30 MG/ML VIAL 15 MG IVP (04:13)
[2024-02-28] MEDS: HEPARIN SOD INJ 5000 UNIT/ML VIAL SC (05:19)
[2024-02-28 05:42] LABS: Basophils % (Auto) 0 % (0-2.5); Eosinophils # (Auto) 0.3 Thou/mm3 (0.0-0.5); Eosinophils % (Auto) 2 % (0-10); Hematocrit 29.6 % (41.0-53.0); Hemoglobin 9.1 g/dL (13.5-16.0); Immature Granulocytes % (Auto) 0 % (0-0); Immature Granulocytes Auto 0.05 Thou/mm3 (0.00-0.00); Lymphocytes # (Auto) 1.4 Thou/mm3 (1.0-4.8); Lymphocytes % (Auto) 11 % (10-50); Mean Corpuscular HGB Conc 30.7 g/dl (31.0-37.0); Mean Corpuscular Hemoglobin 23.5 pg (25.0-35.0); Mean Corpuscular Volume 76 fL (80-100); Monocytes # (Auto) 0.9 Thou/mm3 (0.0-0.8); Monocytes % (Auto) 7 % (0-12); Neutrophils # (Auto) 10.4 Thou/mm3 (1.8-7.7); Neutrophils % (Auto) 80 % (37-80); Nucleated Red Blood Cell % 0 /100 WBC (0); Platelet Count 318 Thou/mm3 (140-440); RDW Standard Deviation 44.2 fL (35.1-43.9); Red Blood Count 3.88 Miln/mm3 (4.50-5.90)
[2024-02-28 05:45] VITALS: BMI 30.4
[2024-02-28 06:14] LABS: Anion Gap 6 (7-16); BUN/Creatinine Ratio 20 Ratio (12-20); Blood Urea Nitrogen 10 mg/dL (9-23); Calcium 8.5 mg/dL (8.3-10.6); Carbon Dioxide 26.7 mMol/L (20.0-31.0); Chloride 106 mMol/L (98-107); Creatinine (Component) 0.5 mg/dL (0.6-1.3); Estimated Creatinine Clearance 158.9 mL/min (>60); Glucose 94 mg/dL (74-106); Magnesium 1.8 mg/dL (1.6-2.6); Osmolality,Calculated 276 (275-295); Potassium 3.5 mMol/L (3.4-5.1); Sodium 139 mMol/L (136-145); eGFR > 60 See Note
[2024-02-28] MEDS: SODIUM CHLORIDE 0.9% 1000 ML 1,000 ML 75 ML IV (06:36)
[2024-02-28 08:00] VITALS: BP 157/83; PULSE 73; RESP 20; TEMP 36.4; O2SAT 98
[2024-02-28] MEDS: cefTRIAXone/D5w 1gm IV premix 50 ML IV (08:13)
[2024-02-28] MEDS: Magnesium Sulfate 2 GM Ivpb 2 GM/50 ML BAG IV (09:24)
--- NOTE | 2024-02-28 10:32 | PD.RESPRO ---
Documentation for date of: 02/28/24 Subjective Subjective Interval history: No acute overnight events. Patient complaining of bilateral upper extremity stiffness in his hands generalized weakness ongoing for weeks. Tolerating oral intake. Denies fever, chills, headaches, chest pain, sob, cough, GI or urinary symptoms. Exam Vital Signs Temp Pulse Resp BP Pulse Ox O2 Del Method 97.5 F 73 20 157/83 H 98 Room Air 02/28/24 08:00 02/28/24 08:00 02/28/24 08:00 02/28/24 08:00 02/28/24 08:00 02/28/24 08:00 Narrative Exam GENERAL: Disheveled appearing middle-aged male, no apparent distress HEENT: NCAT.?JUNAID. Oral mucosa is moist. Patent Nares. Mild tenderness over the right posterior skull, no obvious laceration or skin changes. NECK: Supple, nontender, no thyromegaly, no meningismus, no JVD, no step offs CHEST: Symmetrical, atraumatic, and with equal expansion, Nontender on palpation no deformity and no crepitus. CARDIOVASCULAR: RRR, no m/g/r LUNGS: CTAB, no w/r/r. Symmetrical chest rise. No intercostal subcostal retraction. ABDOMEN: Soft, flat, nontender. No guarding/rebound tenderness/masses. +BS EXTREMITIES: Nontender.? No edema/cyanosis.?Moves all 4 extremities well, with full ROM and good CSM. SKIN: Warm and dry, no jaundice/rashes. MSK: No lumbar or midline, no CVA, no paraspinal muscle spasm or tenderness. NEURO: WINN x4, CN II-XII grossly intact.?No focal neurologic deficits. PSYCHIATRIC: Normal mood and affect, cooperative, no SI or HI or hallucinations. Objective Labs 02/29/24 04:57 02/29/24 04:57 Labs: Laboratory Results - last 24 hr 02/27/24 02/27/24 02/27/24 11:12 11:33 16:00 WBC 16.3 H RBC 4.19 L Hgb 9.9 L Hct 31.9 L MCV 76 L MCH 23.6 L MCHC 31.0 RDW Std Deviation 43.9 Plt Count 332 Neut % (Auto) 88 H Lymph % (Auto) 5 L [place] % (Auto) 6 Eos % (Auto) 1 Baso % (Auto) 0 Neut # (Auto) 14.3 H Lymph # (Auto) 0.8 L [place] # (Auto) 1.1 H Eos # (Auto) 0.1 Baso # (Auto) 0.0 Immature Gran # (Auto) 0.04 H Absolute Nucleated RBC 0.00 Immature Gran % 0 Nucleated RBC % 0 Sodium 137 Potassium 3.6 Chloride 105 Carbon Dioxide 24.8 Anion Gap 7 BUN 14 Creatinine 0.6 Estim Creat Clear Calc 117.2 eGFR > 60 BUN/Creatinine Ratio 23 H Glucose 98 Calculated Osmolality 274 L Lactic Acid 1.8 Calcium 8.4 Corrected Calcium 8.4 L Magnesium 1.7 Total Bilirubin 0.6 AST 15 ALT 12 Alkaline Phosphatase 110 Total Protein 7.2 Albumin 4.0 Globulin 3.2 Albumin/Globulin Ratio 1.3 Procalcitonin < 0.04 Ur Collection Type Clean Catch Urine Color Lt-Yellow Urine Clarity Clear Urine pH 6.5 Ur Specific [place] 1.024 Urine Protein 1+ A Urine Glucose (UA) Negative Urine Ketones Negative Urine Blood Negative Urine Nitrite Positive Urine Bilirubin Negative Urine Urobilinogen (Auto) Negative Ur Leukocyte Esterase Positive Urine RBC 2 Urine WBC 20 H Ur Squamous Epith Cells 0 Urine Bacteria 4+ A RSV Rapid Negative Group A Strep Rapid Negative 02/28/24 05:15 WBC 13.0 H RBC 3.88 L Hgb 9.1 L Hct 29.6 L MCV 76 L MCH 23.5 L MCHC 30.7 L RDW Std Deviation 44.2 H Plt Count 318 Neut % (Auto) 80 Lymph % (Auto) 11 [place] % (Auto) 7 Eos % (Auto) 2 Baso % (Auto) 0 Neut # (Auto) 10.4 H Lymph # (Auto) 1.4 [place] # (Auto) 0.9 H Eos # (Auto) 0.3 Baso # (Auto) 0.0 Immature Gran # (Auto) 0.05 H Absolute Nucleated RBC 0.00 Immature Gran % 0 Nucleated RBC % 0 Sodium 139 Potassium 3.5 Chloride 106 Carbon Dioxide 26.7 Anion Gap 6 L BUN 10 Creatinine 0.5 L Estim Creat Clear Calc 158.9 eGFR > 60 BUN/Creatinine Ratio 20 Glucose 94 Calculated Osmolality 276 Lactic Acid Calcium 8.5 Corrected Calcium Magnesium 1.8 Total Bilirubin AST ALT Alkaline Phosphatase Total Protein Albumin Globulin Albumin/Globulin Ratio Procalcitonin Ur Collection Type Urine Color Urine Clarity Urine pH Ur Specific [place] Urine Protein Urine Glucose (UA) Urine Ketones Urine Blood Urine Nitrite Urine Bilirubin Urine Urobilinogen (Auto) Ur Leukocyte Esterase Urine RBC Urine WBC Ur Squamous Epith Cells Urine Bacteria RSV Rapid Group A Strep Rapid Quality Measures Quality Measures sepsis Current suspected stage: ruled out Possible source: genitourinary Blood cultures ordered: completed in ED Antibiotic ordered: Yes Advance care planning discussed with:: patient Assessment & Plan Assessment Current Active Medications: Generic Name Dose Route Start Last Admin Trade Name Freq PRN Reason Stop Dose Admin Acetaminophen 650 mg 02/28/24 08:44 Acetaminophen 325 Mg Tablet PO 03/28/24 15:51 Q6HR PRN Fever >100.4 or pain 1-5 Calcium Carbonate 600 mg 02/28/24 10:31 Calcium Carbonate 600 Mg Tablet PO 02/28/24 10:32 X1 ONE Heparin Sodium (Porcine) 5,000 unit 02/27/24 22:00 02/28/24 05:19 Heparin Sod Inj 5000 Unit/Ml Vial SC 03/12/24 21:59 5,000 unit Q8HR MIGUELINA Administration Ceftriaxone Sodium/Dextrose 50 mls @ 100 mls/hr 02/28/24 09:00 02/28/24 08:13 Rocephin/D5w 1gm Iv Premix IV 03/06/24 08:59 100 mls/hr QDAY MIGUELINA Administration Sodium Chloride 1,000 mls @ 75 mls/hr 02/27/24 16:45 02/28/24 06:36 Ns IV 03/28/24 16:44 75 mls/hr .[id number] MIGUELINA Administration Magnesium Sulfate 2 gm in 50 mls @ 25 mls/hr 02/28/24 08:45 02/28/24 09:24 Magnesium Sulfate Ivpb IV 02/28/24 10:44 25 mls/hr X1 ONE Administration Magnesium Sulfate 2 gm in 50 mls @ 25 mls/hr 02/28/24 10:31 Magnesium Sulfate Ivpb IV 02/28/24 12:30 X1 ONE Ondansetron HCl 4 mg 02/27/24 15:39 Ondansetron Inj 2 Mg/Ml Inj 2 Ml IV 03/28/24 15:38 Q6H PRN NAUSEA OR VOMITING Protocol Oxycodone/Acetaminophen 1 tab 02/28/24 08:43 Oxycodone/Apap 5/325 Tablet PO 03/04/24 08:42 Q6HR PRN Pain 6-10 Plan In summary: 68-year-old male with questionable history of hypertension, presented after ground-level fall, admitted for sepsis secondary to gram-negative rods UTI, continued on CEFTRIAXONE, pending final culture. Overall patient improving. 68-year-old male who presented after a ground-level fall and was found to have sepsis secondary to UTI. # Sepsis (resolved) secondary to GNR UTI # Leukocytosis Sepsis on admission with fever, tachycardia and leukocytosis, UA positive for UTI Adequately fluid resuscitated, continue ANTIBIOTICS, preliminary urine culture grew GNR, 24-hour blood culture negative ? Continue CEFTRIAXONE IV (02/26 to [present]) ? TYLENOL for fever ? Daily CBC ? Follow-up cultures # Ground-level fall # Closed skull fracture History of ground-level fall over a weeks ago CT head showed right frontal nondisplaced fracture spanning upper right frontal bone to the right supraorbital rim. No focal deficit on exam. No evidence of CSF leak or active bleed. Discussed with neurosurgery at [facility]: Recommended no transfer but conservative management. ? Continue monitoring # Generalized weakness Complains of weeks of ongoing generalized weakness, present prior to recent falls ? Ordered B12 level ? Physical therapy Health maintenance Diet: Regular GI prophylaxis: Not indicated DVT prophylaxis: HEPARIN subcu Antibiotics: CEFTRIAXONE CODE STATUS: DNR Disposition: Pending improvement, PT evaluation Patient case was discussed with attending, Ozzie Conner MD and senior residents Dr. Ferrer and Dr. Harrison. Shyam Wheatley DO PGYI Attending Provider Attestation/Addendum I reviewed labs, imaging, EKG, home medications and prior available records. Face to face evaluation was performed by me. I have personally examined the patient and discussed assessment and plan with the IM team. I reviewed the resident note and agree with the plan with exceptions as below. Sepsis secondary to acute UTI Leukocytosis He meets sepsis criteria with fevers, tachycardia, leukocytosis, and source of infection which is a urine given his UA. He received IV fluids in the ED and IV ceftriaxone. Likely contributing to his generalized weakness that ultimately led to his fall. Plan: Admit to inpatient Continue IV ceftriaxone Continue IV fluids Management of nausea/fevers as needed Follow-up urine culture: Showed gram-negative rods Trend WBC Ground-level fall Closed skull fracture CT head showed right frontal nondisplaced skull fracture extending from the upper right frontal bone to the right supraorbital rim No focal neurodeficits or evidence of CSF leak Discussed with neurosurgery at [facility]: Recommended no transfer but conservative management. Will admit to our Medical Center. Plan: Pain management as needed Every 4 hour neurochecks Fall precautions PT evaluation Generalized weakness Patient reported glovelike feeling in his hands. He also reported bilateral heaviness in his feet. CT head is negative for acute intracranial pathology. Order vitamin B12 level. Consult neurology.
--- NOTE | 2024-02-28 10:44 | PC.SS ---
Patient is alert/oriented. Engaged in conversation. Patient answered intial intake questions appropriately. Patient states he's homeless and has been for years now. Patient states he recently fell while raking leaves at a friends house. He was admitted for urosepsis. Patient states He has Social Security income as well as disablity income. Patient states he's never been to the local shelters. Patient states prior to hospitalization he was independent with ADL's. Patient states no history of mental illness/drug/alcohol problems. Patient states he will need a short term rehab. PT eval is pending. Patient has support from family. Son was present during end of conversation. Patient states his sister is his alt medical decision maker. SNF inquiry pending. Patient son, Campos,
[2024-02-28] MEDS: CALCIUM CARBONATE 600 MG TABLET PO (11:05)
[2024-02-28 12:00] VITALS: BP 149/76; PULSE 68; RESP 16; TEMP 36.2; O2SAT 96
[2024-02-28 15:41] LABS: Vitamin B12 313 pg/mL (211-911)
[2024-02-28 16:00] VITALS: BP 158/85; PULSE 75; PULSE 77; RESP 16; TEMP 36.7; O2SAT 96
[2024-02-28 20:00] VITALS: BP 155/81; PULSE 74; PULSE 85; RESP 18; TEMP 37.2; O2SAT 95
[2024-02-29] VITALS: BP 147/79; PULSE 70; PULSE 77; RESP 18; TEMP 37.1; O2SAT 96
[2024-02-29 04:00] VITALS: BP 165/85; PULSE 65; PULSE 67; RESP 20; TEMP 36.7; O2SAT 97
[2024-02-29] MEDS: oxyCODONE/APAP 5/325 TABLET 1 TAB PO (04:22)
[2024-02-29 05:48] LABS: Basophils # (Auto) 0.1 Thou/mm3 (0.0-0.2); Basophils % (Auto) 1 % (0-2.5); Eosinophils # (Auto) 0.3 Thou/mm3 (0.0-0.5); Eosinophils % (Auto) 3 % (0-10); Hemoglobin 9.6 g/dL (13.5-16.0); Immature Granulocytes % (Auto) 0 % (0-0); Immature Granulocytes Auto 0.04 Thou/mm3 (0.00-0.00); Lymphocytes # (Auto) 1.5 Thou/mm3 (1.0-4.8); Lymphocytes % (Auto) 14 % (10-50); Mean Corpuscular Hemoglobin 23.6 pg (25.0-35.0); Mean Corpuscular Volume 76 fL (80-100); Monocytes # (Auto) 0.8 Thou/mm3 (0.0-0.8); Monocytes % (Auto) 7 % (0-12); Neutrophils # (Auto) 7.8 Thou/mm3 (1.8-7.7); Neutrophils % (Auto) 75 % (37-80); Nucleated Red Blood Cell % 0 /100 WBC (0); Platelet Count 333 Thou/mm3 (140-440); RDW Standard Deviation 43.6 fL (35.1-43.9); Red Blood Count 4.07 Miln/mm3 (4.50-5.90); White Blood Count 10.5 Thou/mm3 (3.8-10.6)
[2024-02-29 06:00] VITALS: BMI 31.1
[2024-02-29 06:17] LABS: Anion Gap 7 (7-16); BUN/Creatinine Ratio 12 Ratio (12-20); Blood Urea Nitrogen 7 mg/dL (9-23); Calcium 8.6 mg/dL (8.3-10.6); Carbon Dioxide 27.1 mMol/L (20.0-31.0); Chloride 106 mMol/L (98-107); Creatinine (Component) 0.6 mg/dL (0.6-1.3); Estimated Creatinine Clearance 133.8 mL/min (>60); Glucose 92 mg/dL (74-106); Osmolality,Calculated 277 (275-295); Potassium 3.7 mMol/L (3.4-5.1); Sodium 140 mMol/L (136-145); eGFR > 60 See Note
[2024-02-29 08:00] VITALS: BP 134/76; PULSE 65; PULSE 73; RESP 14; TEMP 36.4; O2SAT 98
[2024-02-29] MEDS: CEFEPIME INJ 2 GM in SODIUM CHLORIDE 0.9% (P) 50 ML IV ×2 (08:29→20:34)
--- NOTE | 2024-02-29 09:28 | PC.SS ---
Follow up note: SS sent off inquiry through [email or web address] for review. Patient worked with PT and they recommend short stay at a SNF.
--- NOTE | 2024-02-29 10:24 | PD.RESPRO ---
Documentation for date of: 02/29/24 Subjective Subjective Interval history: No acute overnight events. Still has mild paresthesia of bilateral distal upper extremities. Tolerating oral intake without n/v. Denies fever, chills, headaches, chest pain, sob, cough, GI or urinary symptoms. Exam Vital Signs Temp Pulse Resp BP Pulse Ox O2 Del Method 97.6 F 73 14 134/76 H 98 Room Air 02/29/24 08:00 02/29/24 08:00 02/29/24 08:00 02/29/24 08:00 02/29/24 08:00 02/29/24 08:00 Narrative Exam GENERAL: Disheveled appearing middle-aged male, no apparent distress HEENT: NCAT.?JUNAID. Oral mucosa is moist. Patent Nares. Mild tenderness over the right posterior skull, no obvious laceration or skin changes. NECK: Supple, nontender, no thyromegaly, no meningismus, no JVD, no step offs CHEST: Symmetrical, atraumatic, and with equal expansion, Nontender on palpation no deformity and no crepitus. CARDIOVASCULAR: RRR, no m/g/r LUNGS: CTAB, no w/r/r. Symmetrical chest rise. No intercostal subcostal retraction. ABDOMEN: Soft, flat, nontender. No guarding/rebound tenderness/masses. +BS EXTREMITIES: Nontender.? No edema/cyanosis.?Moves all 4 extremities well, with full ROM and good CSM. SKIN: Warm and dry, no jaundice/rashes. MSK: No lumbar or midline, no CVA, no paraspinal muscle spasm or tenderness. NEURO: WINN x4, CN II-XII grossly intact.?No focal neurologic deficits. PSYCHIATRIC: Normal mood and affect, cooperative, no SI or HI or hallucinations. Objective Labs 03/01/24 04:55 03/01/24 04:55 Labs: Laboratory Results - last 24 hr 02/28/24 02/29/24 05:12 04:57 WBC 10.5 RBC 4.07 L Hgb 9.6 L Hct 31.0 L MCV 76 L MCH 23.6 L MCHC 31.0 RDW Std Deviation 43.6 Plt Count 333 Neut % (Auto) 75 Lymph % (Auto) 14 Bulloch % (Auto) 7 Eos % (Auto) 3 Baso % (Auto) 1 Neut # (Auto) 7.8 H Lymph # (Auto) 1.5 Bulloch # (Auto) 0.8 Eos # (Auto) 0.3 Baso # (Auto) 0.1 Immature Gran # (Auto) 0.04 H Absolute Nucleated RBC 0.00 Immature Gran % 0 Nucleated RBC % 0 Sodium 140 Potassium 3.7 Chloride 106 Carbon Dioxide 27.1 Anion Gap 7 BUN 7 L Creatinine 0.6 Estim Creat Clear Calc 133.8 eGFR > 60 BUN/Creatinine Ratio 12 Glucose 92 Calculated Osmolality 277 Calcium 8.6 Vitamin B12 313 Quality Measures Quality Measures sepsis Current suspected stage: ruled out Possible source: genitourinary Blood cultures ordered: completed in ED Antibiotic ordered: Yes Advance care planning discussed with:: patient Assessment & Plan Assessment Current Active Medications: Generic Name Dose Route Start Last Admin Trade Name Freq PRN Reason Stop Dose Admin Acetaminophen 650 mg 02/28/24 08:44 Acetaminophen 325 Mg Tablet PO 03/28/24 15:51 Q6HR PRN Fever >100.4 or pain 1-5 Heparin Sodium (Porcine) 5,000 unit 02/27/24 22:00 02/29/24 05:04 Heparin Sod Inj 5000 Unit/Ml Vial SC 03/12/24 21:59 Not Given Q8HR MIGUELINA Cefepime HCl 2 gm/ Sodium 50 mls @ 100 mls/hr 02/29/24 08:12 02/29/24 08:29 Chloride IV 03/10/24 08:11 100 mls/hr Q12HR MIGUELINA Administration Ondansetron HCl 4 mg 02/27/24 15:39 Ondansetron Inj 2 Mg/Ml Inj 2 Ml IV 03/28/24 15:38 Q6H PRN NAUSEA OR VOMITING Protocol Oxycodone/Acetaminophen 1 tab 02/28/24 08:43 02/29/24 04:22 Oxycodone/Apap 5/325 Tablet PO 03/04/24 08:42 1 tab Q6HR PRN Administration Pain 6-10 Plan In summary: 68-year-old male with questionable history of hypertension, presented after ground-level fall, admitted for sepsis secondary to E. coli UTI (sens to CEF and BACTIM, ), now on CEFEPIME. 48 hours blood cx negative. Will discharge on BACTRIM after neuro evaluation for paresthesia. Physical therapy recommended SNF rehab. special services director following. Patient recommendations from neurology, PT and social research assistant. Sepsis (resolved) E. coli UTI Leukocytosis Sepsis on admission with fever, tachycardia and leukocytosis, UA positive for UTI Adequately fluid resuscitated, continue ANTIBIOTICS, preliminary urine culture grew GNR, 24-hour blood culture negative ? Continue CEFTRIAXONE IV (02/26 to [present]) ? TYLENOL for fever ? Daily CBC ? Follow-up cultures Ground-level fall Closed skull fracture Posterior bilateral distal upper extremity History of ground-level fall over a weeks ago CT head showed right frontal nondisplaced fracture spanning upper right frontal bone to the right supraorbital rim. No focal deficit on exam. No evidence of CSF leak or active bleed. Discussed with neurosurgery at [facility]: Recommended no transfer but conservative management. Patient endorsing sensation of bilateral hands. B12 on the lower end of normal, given 1 shot. Pending neurology recommendations ? Continue monitoring Generalized weakness Complains of weeks of ongoing generalized weakness, present prior to recent falls ? Physical therapy Health maintenance Diet: Regular GI prophylaxis: Not indicated DVT prophylaxis: HEPARIN subcu Antibiotics: CEFTRIAXONE CODE STATUS: DNR Disposition: Pending improvement, PT evaluation Patient case was discussed with attending, Ozzie Conner MD and senior residents Dr. Ferrer and Dr. Harrison. Shyam Wheatley DO PGYI Attending Provider Attestation/Addendum I reviewed labs, imaging, EKG, home medications and prior available records. Face to face evaluation was performed by me. I have personally examined the patient and discussed assessment and plan with the IM team. I reviewed the resident note and agree with the plan with exceptions as below. Sepsis secondary to acute UTI Leukocytosis He meets sepsis criteria with fevers, tachycardia, leukocytosis, and source of infection which is a urine given his UA. He received IV fluids in the ED and IV ceftriaxone. Likely contributing to his generalized weakness that ultimately led to his fall. Plan: Continue IV fluids Management of nausea/fevers as needed Follow-up urine culture: Showed gram-negative rods, later identified as E. coli that is resistant to ceftriaxone. Started IV cefepime. P.o. Bactrim upon discharge. Trend WBC: Downtrending Ground-level fall Closed skull fracture CT head showed right frontal nondisplaced skull fracture extending from the upper right frontal bone to the right supraorbital rim No focal neurodeficits or evidence of CSF leak Discussed with neurosurgery at [facility]: Recommended no transfer but conservative management. Will admit to our Medical Center. Plan: Pain management as needed Every 4 hour neurochecks Fall precautions PT evaluation Generalized weakness Consulted neurology for further recommendations. Ordered vitamin B12: WNL. Follow-up with PT: Recommended SNF.
[2024-02-29] MEDS: CYANOCOBALAMIN INJ 1,000 mCg/ML VIAL 1000 MCG IM (11:05)
--- NOTE | 2024-02-29 11:14 | PC.SS ---
Follow up note: SS received a call from [employer] wanting to verify if patient will be discharged to SNF w/i.v. antibiotics. They also want updated PT notes and potential d/c date. SS will fax all updated notes today. They will provide auth for SNF. SS will need clarification from physician's on i.v.'s
[2024-02-29 12:00] VITALS: BP 146/73; PULSE 72; PULSE 74; RESP 15; TEMP 36.3; O2SAT 99
[2024-02-29 16:00] VITALS: BP 139/81; PULSE 78; PULSE 79; RESP 20; TEMP 36.7; O2SAT 98
[2024-02-29 20:00] VITALS: BP 124/89; PULSE 90; RESP 21; TEMP 36.8; O2SAT 94
--- NOTE | 2024-02-29 23:21 | PD.NEUROCONS ---
History of Present Illness Data of Consult Requesting Physician: Ozzie Conner MD Primary Care Provider: Physician No Primary/Family Consult Narrative cc:: cc: Ozzie Conner MD Meds Home Medications and Allergies Home Medications ?Medication ?Instructions ?Recorded ?Confirmed ?Type No Known Home Medications 02/27/24 02/27/24 History Allergies Allergy/AdvReac Type Severity Reaction Status Date / Time No Known Allergies Allergy Verified 02/27/24 09:34 Exam - Neurology Vital Signs Temp Pulse Resp BP Pulse Ox O2 Del Method 98.3 F 90 21 H 124/89 H 94 L Room Air 02/29/24 20:00 02/29/24 20:00 02/29/24 20:00 02/29/24 20:00 02/29/24 20:00 02/29/24 20:00 Results Labs 02/29/24 04:57 02/29/24 04:57 Labs: Short CBC 02/29/24 Range/Units 04:57 WBC 10.5 (3.8-10.6) Thou/mm3 Hgb 9.6 L (13.5-16.0) g/dL Hct 31.0 L (41.0-53.0) % Plt Count 333 (140-440) Thou/mm3 BMP 02/29/24 04:57 Sodium 140 Potassium 3.7 Chloride 106 Carbon Dioxide 27.1 BUN 7 L Creatinine 0.6 Glucose 92 Calcium 8.6
[2024-03-01] VITALS (7 sets, daily range): BP systolic 128–164; BP diastolic 80–95; PULSE 72–103; RESP 16–20; TEMP 36.6–36.9; O2SAT 94–97; BMI 31.1
--- NOTE | 2024-03-01 | XR_ITS ---
Examination: MRI cervical spine, without intravenous contrast. MRI cervical spine , with intravenous contrast. Exam date and time: March 01, 2024 1811 hrs. Indications: Injury February 23, 2024 to the neck with neck pain radiating to the arms weakness in the hands Technique: Multiple axial, sagittal and coronal images of the cervical spine have been obtained with the Siemens high-resolution 1.5 Nteta MRI scanner. Images obtained included T2 weighted fat suppressed sagittal sections, TR 3500, TE 46, T2 weighted coronal fat suppressed images, TR 3050, TE 84, T2-weighted transverse fat suppressed images, TR 30-60, TE 63, proton density transverse images, TR 4720, TE 46, and T1 weighted coronal images, TR 560, TE 13. Axial, sagittal and coronal images are obtained post intravenous injection 18 cc gadolinium. Findings: Adequate alignment cervical vertebral bodies Moderate disc narrowing C4-C5, C5-C6 Diffuse cervical disc desiccation C2-C3 no disc protrusion C3-C4 severe overall spinal stenosis, axial image 23, 4 mm central subarticular osteophyte disc complex, facet arthropathy and thickening of ligamenta flava including advanced bilateral neural foraminal stenosis C4-C5 moderate right neural foraminal stenosis C5-C6 uncinate process hypertrophy with advanced bilateral neural foraminal stenosis C6-C7 moderate left L4 foraminal stenosis C7-T1 moderate left neural foraminal stenosis Impression: C3-C4 severe overall spinal stenosis as above Additional cervical spinal stenosis as above
[2024-03-01 05:48] LABS: Basophils # (Auto) 0.1 Thou/mm3 (0.0-0.2); Basophils % (Auto) 1 % (0-2.5); Eosinophils # (Auto) 0.3 Thou/mm3 (0.0-0.5); Eosinophils % (Auto) 3 % (0-10); Hematocrit 35.6 % (41.0-53.0); Immature Granulocytes % (Auto) 1 % (0-0); Immature Granulocytes Auto 0.05 Thou/mm3 (0.00-0.00); Lymphocytes # (Auto) 1.4 Thou/mm3 (1.0-4.8); Lymphocytes % (Auto) 13 % (10-50); Mean Corpuscular HGB Conc 30.9 g/dl (31.0-37.0); Mean Corpuscular Hemoglobin 23.6 pg (25.0-35.0); Mean Corpuscular Volume 76 fL (80-100); Monocytes # (Auto) 0.8 Thou/mm3 (0.0-0.8); Monocytes % (Auto) 8 % (0-12); Neutrophils % (Auto) 76 % (37-80); Nucleated Red Blood Cell % 0 /100 WBC (0); Platelet Count 314 Thou/mm3 (140-440); RDW Standard Deviation 43.7 fL (35.1-43.9); Red Blood Count 4.66 Miln/mm3 (4.50-5.90); White Blood Count 10.6 Thou/mm3 (3.8-10.6)
[2024-03-01 06:18] LABS: Anion Gap 9 (7-16); BUN/Creatinine Ratio 14 Ratio (12-20); Blood Urea Nitrogen 10 mg/dL (9-23); Carbon Dioxide 26.8 mMol/L (20.0-31.0); Chloride 103 mMol/L (98-107); Creatinine (Component) 0.7 mg/dL (0.6-1.3); Estimated Creatinine Clearance 114.7 mL/min (>60); Glucose 109 mg/dL (74-106); Osmolality,Calculated 277 (275-295); Potassium 3.4 mMol/L (3.4-5.1); Sodium 139 mMol/L (136-145); eGFR > 60 See Note
[2024-03-01] MEDS: NIFEdipine XL 30 MG TABCR PO (09:23)
[2024-03-01] MEDS: CEFEPIME INJ 2 GM in SODIUM CHLORIDE 0.9% (P) 50 ML IV ×2 (09:23→21:16)
[2024-03-01 09:40] LABS: Ferritin 18 ng/mL (10.5-307.3)
--- NOTE | 2024-03-01 09:50 | PC.SS ---
Follow up note: John already has prior authorization from insurance. Physician states we are waiting on Neuro rec's. D/c pending.
[2024-03-01 09:51] LABS: Iron 24 mcg/dL (65-175); Percent Iron Saturation 7 % (20-55); Total Iron Binding Capacity 324 mcg/dL (250-425); Unsaturated Iron Binding 300 (225-295)
--- NOTE | 2024-03-01 14:15 | PD.HHPROG ---
Documentation for date of: 03/01/24 Subjective - Hospitalist Subjective Interval history: Patient was seen and examined at the bedside. 24-hour events, labs, imaging studies, and reports reviewed in details. BP is 164/86. Started nifedipine 30 mg daily. Noted low MCV. Sent iron panel. Discussed with neurology: Recommended cervical MRI. Patient denies new complaints. He still has bilateral weakness in his hands. He reported no new numbness or weakness. His head pain is improving. Review of Systems Review of Systems Narrative Review of Systems: Review of systems: 12 point of system reviewed. All negative except as mentioned above. Exam Vital Signs Temp Pulse Resp BP Pulse Ox O2 Del Method 98.1 F 75 18 139/94 H 96 Room Air 03/01/24 12:00 03/01/24 12:00 03/01/24 12:00 03/01/24 12:00 03/01/24 12:00 03/01/24 12:00 Narrative General: Alert and oriented x3. In no acute distress. Eyes: Pupils are equal and reactive to light bilaterally. HEENT: Atraumatic, normocephalic. No JVD noted. Cardiovascular: Normal S1 and S2. Normal rate and regular rhythm. No murmurs appreciated. No peripheral pitting edema noted. No JVD noted. Respiratory: No respiratory distress. Lungs are clear to auscultation bilaterally. No wheezing or crackles heard. Abdomen: Soft, nontender, nondistended. Skin: No rash. Warm to touch. Musculoskeletal: No gross injuries. Able to move all 4 extremities. Neuro: Alert and oriented x3. Sensation is intact throughout. Strength is 5/5 and symmetric. No focal neuro deficits. Psych: Normal affect and mood. Objective - Hospitalist Labs Diagram: 03/01/24 04:55 03/01/24 04:55 Labs: Laboratory Results - last 24 hr 03/01/24 04:55 WBC 10.6 RBC 4.66 Hgb 11.0 L Hct 35.6 L MCV 76 L MCH 23.6 L MCHC 30.9 L RDW Std Deviation 43.7 Plt Count 314 Neut % (Auto) 76 Lymph % (Auto) 13 Bennett % (Auto) 8 Eos % (Auto) 3 Baso % (Auto) 1 Neut # (Auto) 8.0 H Lymph # (Auto) 1.4 Bennett # (Auto) 0.8 Eos # (Auto) 0.3 Baso # (Auto) 0.1 Immature Gran # (Auto) 0.05 H Absolute Nucleated RBC 0.00 Immature Gran % 1 H Nucleated RBC % 0 Sodium 139 Potassium 3.4 Chloride 103 Carbon Dioxide 26.8 Anion Gap 9 BUN 10 Creatinine 0.7 Estim Creat Clear Calc 114.7 eGFR > 60 BUN/Creatinine Ratio 14 Glucose 109 H Calculated Osmolality 277 Calcium 9.0 Iron 24 L TIBC 324 Iron Saturation 7 L Unsat Iron Binding 300 H Ferritin 18 Assessment & Plan Patient Synopsis 68-year-old male who presented after a ground-level fall and was found to have sepsis secondary to UTI. no transfer but conservative management. Will admit to our Medical [facility]. Sepsis secondary to acute UTI Leukocytosis He meets sepsis criteria with fevers, tachycardia, leukocytosis, and source of infection which is a urine given his UA. He received IV fluids in the ED and IV ceftriaxone. Likely contributing to his generalized weakness that ultimately led to his fall. Plan: Continue IV fluids Management of nausea/fevers as needed Follow-up urine culture: Showed gram-negative rods, later identified as E. coli that is resistant to ceftriaxone. Started IV cefepime. P.o. Bactrim upon discharge. Trend WBC: Downtrending Ground-level fall Closed skull fracture CT head showed right frontal nondisplaced skull fracture extending from the upper right frontal bone to the right supraorbital rim No focal neurodeficits or evidence of CSF leak Discussed with neurosurgery at [facility]: Recommended no transfer but conservative management. Will admit to our Medical Center. Plan: Pain management as needed Every 4 hour neurochecks Fall precautions PT evaluation: Recommended SNF placement. Generalized weakness, mainly bilateral hands Consulted neurology for further recommendations. Discussed with neurology: Recommended cervical spine MRI prior to discharge to rule out acute pathologies. Also recommended outpatient EMG and NCS. Ordered Vitamin B12: WNL. Follow-up with PT: Recommended SNF. CODE STATUS is DNR/DNI: Patient understands what that means and expressed his wishes not to be resuscitated in case of heart stop Diet is regular Admitting to telemetry DVT prophylaxis with subcutaneous heparin Time Spent with Patient Time: Total time spent is greater than 50% in coordination of care (as documented) at patient's floor/unit and/or counseling patient: Time with patient: 25 - 35 minutes Reason for Continued Stay Reason for continued stay: further dx testing Quality Measures Quality Measures sepsis Current suspected stage: sepsis Possible source: genitourinary Blood cultures ordered: completed in ED Antibiotic ordered: Yes Advance care planning discussed with:: patient
[2024-03-01] MEDS: HEPARIN SOD INJ 5000 UNIT/ML VIAL SC (15:05)
--- NOTE | 2024-03-01 19:41 | PC.NURSE ---
Addendum entered by Chon Kirkland RN 03/02/24 01:11: Dr. Wayne made aware Original Note: RN attempted to notify hospitlalist of MRI cervical spine results. Hospitalists [phone] did not answer call. RN will try again later.
--- NOTE | 2024-03-01 23:30 | ESPR_ITS ---
Documentation for date of: 03/01/24 Subjective Subjective Interval history: Patient is in telemetry, continues to complain of subjective paresthesias in both upper extremities without any weakness Exam - Neurology Vital Signs Temp Pulse Resp BP Pulse Ox O2 Del Method 97.9 F 103 H 19 133/82 H 96 Room Air 03/01/24 20:00 03/01/24 20:00 03/01/24 20:00 03/01/24 20:00 03/01/24 20:00 03/01/24 20:00 Narrative Exam GENERAL APPEARANCE: Well hydrated, well-nourished in no acute distress. HEENT: Normocephalic, atraumatic, extraocular movements intact. Pupils: Equal reacting to light and accommodation NECK: Supple, no JVD or bruits. CARDIOVASULAR: Heart: S1, S2 heard, regular without S3-S4 or murmur no rubs or gallops. LUNGS/CHEST: Clear to auscultation bilaterally. No rails, rhonchi, or wheezing. Normal inspection. ABDOMEN: Soft, nontender, with normal bowel sounds. No pulsatile masses. No rebound, rigidity, or guarding. Normal inspection and palpation. EXTREMITIES: Normal inspection and palpation. No edema, clubbing or cyanosis. SKIN: Warm and dry without rashes. Normal inspection. MUSCULOSKELETAL: No cervical, thoracic, lumbar or midline bony tenderness. Normal inspection. NEURO: Alert, awake and oriented x3. Cranial nerves: II through XII grossly intact. Speech and language: Normal with no dysarthria or dysphasia. Motor system: Tone and bulk: Normal: Strength: 5 out of 5 in all 4 extremities; No pronator drift noted. Deep tendon reflexes: 2+ bilaterally symmetrical. Plantar reflex: Downgoing bilaterally. Sensory system: Intact to all modalities of sensation bilaterally. Coordination: Intact to iqcpnq-axzv-fiyaw and xyxp-jldt-gpnw test bilaterally. No ataxia, no dysmetria, or dysdiadochokinesia noted. No intention tremors noted. Gait: Normal. Toe, heel, tandem walk all are normal. Romberg: Negative. No signs of meningeal irritation noted. PSYCHIATRIC: Normal mood and affect. Objective Labs 03/01/24 04:55 03/01/24 04:55 Labs: Laboratory Results - last 24 hr 03/01/24 04:55 WBC 10.6 RBC 4.66 Hgb 11.0 L Hct 35.6 L MCV 76 L MCH 23.6 L MCHC 30.9 L RDW Std Deviation 43.7 Plt Count 314 Neut % (Auto) 76 Lymph % (Auto) 13 Montgomery % (Auto) 8 Eos % (Auto) 3 Baso % (Auto) 1 Neut # (Auto) 8.0 H Lymph # (Auto) 1.4 Montgomery # (Auto) 0.8 Eos # (Auto) 0.3 Baso # (Auto) 0.1 Immature Gran # (Auto) 0.05 H Absolute Nucleated RBC 0.00 Immature Gran % 1 H Nucleated RBC % 0 Sodium 139 Potassium 3.4 Chloride 103 Carbon Dioxide 26.8 Anion Gap 9 BUN 10 Creatinine 0.7 Estim Creat Clear Calc 114.7 eGFR > 60 BUN/Creatinine Ratio 14 Glucose 109 H Calculated Osmolality 277 Calcium 9.0 Iron 24 L TIBC 324 Iron Saturation 7 L Unsat Iron Binding 300 H Ferritin 18 Assessment & Plan Assessment and plan (1) Paresthesia and pain of both upper extremities: Status: Acute Assessment and plan: Secondary to multilevel cervical spinal stenosis confirmed by MRI of the cervical spine. MRI of the cervical spine showed multilevel spinal stenosis especially at C3-4. Will start him on gabapentin 300 mg twice a day and prednisone 10 mg a day for 5 days Patient needs transfer to neurosurgery because of the extent of stenosis even though he does not have any signs of myelopathy (2) Hypertension: Status: Acute Assessment and plan: Under control on nifedipine (3) Acute UTI: Status: Acute Assessment and plan: On antibiotics (4) Skull fracture: Status: Acute Assessment and plan: From recent fall confirmed by CT. Neurosurgery recommended conservative management
[2024-03-01] MEDS: oxyCODONE/APAP 5/325 TABLET 1 TAB PO (23:59)
[2024-03-02] VITALS (9 sets, daily range): BP systolic 119–140; BP diastolic 76–89; PULSE 73–102; RESP 16–19; TEMP 36.3–36.8; O2SAT 96–98; BMI 31.1; BMI 30.9
--- NOTE | 2024-03-02 08:54 | PC.CM ---
Addendum entered by Mac Coe RN 03/02/24 16:18: 1616 Called [facility], spoke to Anh for update. She confirmed she received the TBA and waiting for neuro bed to open. Addendum entered by Mac Coe RN 03/02/24 14:37: 1436 Completed TBA and faxed back to [facility]. Addendum entered by Mac Coe RN 03/02/24 13:00: [address] Ferrer about the update. Addendum entered by Mac Coe RN 03/02/24 12:57: 1212 received call from Krysta at [facility] that pt is accepted for inpatient transfer. Accepted by Dr. Rodriguez. She stated she is going to send TBA. It needs to be filled out and fax back. She also stated it might take a day or 2 to get a bed. Addendum entered by Mac Coe RN 03/02/24 10:40: 1036 Summer from [facility] informed me that their MRI is down for 1 and half week, it's not coming up any time soon and their neuro-surgeon Dr. Sosa is declining due to MRI being down since he cannot perform any surgical procedures. Addendum entered by Mac Coe RN 03/02/24 10:23: 1021 Called [facility], spoke to Krysta and initiated the transfer request. Addendum entered by Mac Coe RN 03/02/24 10:20: 1019 images pushed over to [facility] via [employer]. Addendum entered by Mac Coe RN 03/02/24 10:05: 1001 Called [facility], spoke to Summer and initiated the transfer request. She wanted to speak with Dr. Ferrer. Conference call connected. Addendum entered by Mac Coe RN 03/02/24 09:42: 0940 Called [facility], spoke to Risa and initiated the transfer request. Risa stated to get the auth for transfer. Addendum entered by Mac Coe RN 03/02/24 09:35: [address] [facility]. Addendum entered by Mac Coe RN 03/02/24 09:04: 0904 clinicals sent to [facility] and [facility]. Original Note: [id number] Ferrer that pt needs to be transferred for severe cervical stenosis needs neuro surgical services.
[2024-03-02] MEDS: GABAPENTIN 300 MG CAPSULE PO ×2 (08:55→20:39)
[2024-03-02] MEDS: predniSONE 5 MG TABLET 10 MG PO (08:55)
[2024-03-02] MEDS: NIFEdipine XL 30 MG TABCR PO (08:56)
[2024-03-02] MEDS: CEFEPIME INJ 2 GM in SODIUM CHLORIDE 0.9% (P) 50 ML IV ×2 (08:57→20:39)
--- NOTE | 2024-03-02 09:57 | ESPR_ITS ---
Documentation for date of: 03/02/24 Subjective Subjective Interval history: Patient seen and examined at bedside this morning. No acute overnight events. Vitals, labs reviewed. Patient states he is feeling stronger however continues to complain of numbness/tingling and glove/stocking distribution. He also endorses a heaviness in his arms as if he has been working out. Neuro recommendations appreciated, patient started on gabapentin and transfer process initiated. Exam Vital Signs Temp Pulse Resp BP Pulse Ox O2 Del Method 97.4 F 73 16 138/77 H 96 Room Air 03/02/24 08:00 03/02/24 08:56 03/02/24 08:00 03/02/24 08:56 03/02/24 08:00 03/02/24 08:00 Narrative Exam Gen: AAOx3, disheveled elderly male, pleasant to speak with HEENT: NCAT, PERRLA, EOMI, MMM, TTP on R side of head CVS: normal S1, S2. RRR. No MRG Resp: CTA B/L. No rhonchi, rales, crackles or wheezing Abd: soft, non-tender, non-distended. BS+ in all 4 quadrants MSK: Good ROM in BUE & BLE. No edema or rash. Neuro: CN II-XII grossly intact. Strength 4/5 in BUE & BLE. Decreased sensation in fingertips. Objective Labs 03/04/24 05:00 03/04/24 05:00 Quality Measures Quality Measures sepsis Current suspected stage: ruled out Possible source: genitourinary Blood cultures ordered: completed in ED Antibiotic ordered: Yes Advance care planning discussed with:: patient Assessment & Plan Assessment Current Active Medications: Generic Name Dose Route Start Last Admin Trade Name Freq PRN Reason Stop Dose Admin Acetaminophen 650 mg 02/28/24 08:44 Acetaminophen 325 Mg Tablet PO 03/28/24 15:51 Q6HR PRN Fever >100.4 or pain 1-5 Gabapentin 300 mg 03/02/24 09:00 03/02/24 08:55 Gabapentin 300 Mg Capsule PO 04/01/24 08:59 300 mg BID MIGUELINA Administration Heparin Sodium (Porcine) 5,000 unit 02/27/24 22:00 03/02/24 05:01 Heparin Sod Inj 5000 Unit/Ml Vial SC 03/12/24 21:59 Not Given Q8HR MIGUELINA Cefepime HCl 2 gm/ Sodium 50 mls @ 100 mls/hr 02/29/24 08:12 03/02/24 08:57 Chloride IV 03/10/24 08:11 100 mls/hr Q12HR MIGUELINA Administration Nifedipine 30 mg 03/01/24 09:00 03/02/24 08:56 Nifedipine Xl 30 Mg Tabcr PO 03/31/24 08:59 30 mg QDAY MIGUELINA Administration Ondansetron HCl 4 mg 02/27/24 15:39 Ondansetron Inj 2 Mg/Ml Inj 2 Ml IV 03/28/24 15:38 Q6H PRN NAUSEA OR VOMITING Protocol Oxycodone/Acetaminophen 1 tab 02/28/24 08:43 03/01/24 23:59 Oxycodone/Apap 5/325 Tablet PO 03/04/24 08:42 1 tab Q6HR PRN Administration Pain 6-10 Prednisone 10 mg 03/02/24 09:00 03/02/24 08:55 Prednisone 5 Mg Tablet PO 03/09/24 00:09 10 mg QDAY MIGUELINA Administration Plan In summary: 68-year-old male with questionable history of hypertension, presented after ground-level fall, admitted for sepsis secondary to E. coli UTI (sens to CEF and BACTIM, ), now on CEFEPIME. 48 hours blood cx negative. Will discharge on BACTRIM after neuro evaluation for paresthesia. Physical therapy recommended SNF rehab. guest services attendant following. Appreciate recommendations from neurology, PT and social studies department chair. Pending transfer. Sepsis (resolved) E. coli UTI Leukocytosis Sepsis on admission with fever, tachycardia and leukocytosis, UA positive for UTI Adequately fluid resuscitated, continue ANTIBIOTICS, preliminary urine culture grew GNR, 48-hour blood culture negative ?Initially started on CEFTRIAXONE IV (02/26 to 02/28), changed to cefepime once cultures grew (02/28?current) ? TYLENOL for fever ? Daily CBC ? Follow-up cultures: MDR E. coli sensitive to cefepime & Bactrim Ground-level fall Closed skull fracture Posterior bilateral distal upper extremity Severe cervical stenosis, pending transfer History of ground-level fall over a weeks ago CT head showed right frontal nondisplaced fracture spanning upper right frontal bone to the right supraorbital rim. No focal deficit on exam. No evidence of CSF leak or active bleed. Discussed with neurosurgery at [facility]: Recommended no transfer but conservative management. Patient endorsing sensation of bilateral hands. B12 on the lower end of normal, given 1 shot. Neurology consulted, appreciate recommendations: Gabapentin 300 mg twice daily and prednisone 10 mg p.o. daily. MRI C-spine: C3-C4 severe overall spinal stenosis with 4 mm central subarticular osteophyte disc complex, facet arthropathy and thickening of ligamenta flava including advanced bilateral neural foraminal stenosis. Additional cervical spinal stenosis noted as well (C4-T1) => neurology recommended for patient to be transferred for neurosurgical evaluation Transfer process initiated, [facility] has accepted the patient pending bed availability ? Continue monitoring ? PT ?Start Protonix for GI prophylaxis HTN Patient started on nifedipine 30 mg daily with improvement of BP Iron deficiency anemia Hgb 11, MCV 76 Iron panel consistent with iron deficiency anemia Recommend to start iron supplementation once infection resolves Generalized weakness Complains of weeks of ongoing generalized weakness, present prior to recent falls ? Physical therapy Health maintenance Diet: Regular GI prophylaxis: Protonix DVT prophylaxis: HEPARIN subcu Antibiotics: CEFTRIAXONE CODE STATUS: DNR Disposition: Pending transfer for neurosurgical eval of cervical stenosis; continue IV antibiotics Patient seen and care discussed with my attending Dr. Conner. Adolfo Ferrer MD PGY-3 Attending Provider Attestation/Addendum I reviewed labs, imaging, EKG, home medications and prior available records. Face to face evaluation was performed by me. I have personally examined the patient and discussed assessment and plan with the IM team. I reviewed the resident note and agree with the plan with exceptions as below. See my addendum in a separate note for the same date.
--- NOTE | 2024-03-02 09:57 | PD.RESDS ---
Planned Discharge Date 03/02/24 DS: Providers Provider Date of admission: 02/27/24 15:41 Primary care physician: Physician No Primary/Family Admitting Provider: Ozzie Conner MD Attending Provider on Admission: Ozzie Conner MD Consults: 02/27/24 12:30 Referral - Electrical Equipment Technician Stat Service Needed for Transfer: Neurosurgery Addl Comments:: Patient fell 4-5 days ago, he is not certain of the exact date. Head CT is negative for bleed but has significant skull fracture, right frontal nondisplaced skull fracture extending from the upper right frontal bone to the right supraorbital rim. 02/27/24 15:55 Referral Physical Therapy Stat Comment: Physician Instructions: 02/29/24 10:28 Consult to Neurology / Tele-Neurology Routine Comment: Consulting Provider: Marquis العلي Consult to Neurology / Tele-Neurology Stat Comment: bilateral weakness, mainly in hands Consulting Provider: Marquis العلي Attending Provider on DC: Adolfo Ferrer MD Discharging Provider: Adolfo Ferrer MD DS: Diagnosis Problem List Completed Was Problem List Reviewed/Reconciled?: Yes Hospital Course Hospital Course Hospital course: 68 year old homeless male with HTN, presented after GLF where he hit his head. Head CT revealed a right frontal nondisplaced skull fracture, with neurosurgery consult from [facility] recommending conservative management. Additionally, patient was found to be septic with UA consistent with UTI. He was started on IV rocephin, which was changed to cefepime once urine culture resulted with MDR E.coli. Blood cultures were negative. As patient's infection improved, he continued to complain of numbness in both hands, thus neurology was consulted. Neuro recommended to obtain MRI cervical spine, showing multilevel spinal stenosis, worst at C3-C4. Patient was started on gabapentin, steroids, and neurology recommended transfer for neurosurgery due to the extent of stenosis. #Severe cervical stenosis #Paresthesias, BUE #Ground level fall #Closed skull fracture #Generalized weakness #Sepsis, resolved #MDR E. coli UTI #Leukocytosis, resolved #Hypertension #Iron deficiency anemia Current meds: Cefepime 2g q12h, Gabapentin 300mg BID, Heparin 5000u SC, Nifedipine 30mg qDay, Protonix 40mg qDay, Prednisone 10mg qDay. PRN meds: Acetaminophen, Zofran, Oxycodone. Patient seen and care discussed with my attending Dr. Conner. Adolfo Ferrer MD PGY-3 Status at Discharge Cognitive/behavioral status at discharge: AAOx3 Time Spent with Patient Time attestation: Total time spent providing and/or coordinating discharge services: Time spent: Greater than 30 minutes Exam Vital Signs Temp Pulse Resp BP Pulse Ox O2 Del Method 97.4 F 73 16 138/77 H 96 Room Air 03/02/24 08:00 03/02/24 08:56 03/02/24 08:00 03/02/24 08:56 03/02/24 08:00 03/02/24 08:00 Narrative Exam Gen: AAOx3, disheveled elderly male, pleasant to speak with HEENT: NCAT, PERRLA, EOMI, MMM, TTP on R side of head CVS: normal S1, S2. RRR. No MRG Resp: CTA B/L. No rhonchi, rales, crackles or wheezing Abd: soft, non-tender, non-distended. BS+ in all 4 quadrants MSK: Good ROM in BUE & BLE. No edema or rash. Neuro: CN II-XII grossly intact. Strength 4/5 in BUE & 5/5 BLE. Decreased sensation in fingertips. Discharge Plan Plan Patient Disposition: [facility] Acute Care [facility] Facility Pt Being Transferred to: [facility] Service Needed for Transfer: Neurosurgery Patient condition on transfer: Stable Prescriptions/Referrals Prescriptions/Med Rec: Continued No Known Home Medications Referrals: No Primary/Family,Physician [Primary Care Provider] - Patient/Caregiver Discharge Instructions Print Language: Malay Stand Alone Forms: Bobbi Award Info., Patient Portal Info Letter Quality Discharge Quality Measures VTE prophylaxis MD Attestestation MD Attestation I reviewed labs, imaging, EKG, home medications and prior available records. Face to face evaluation was performed by me. I have personally examined the patient and discussed assessment and plan with the IM team. I reviewed the resident note and agree with the plan with exceptions as below. See my addendum in a separate note for the same date.
--- NOTE | 2024-03-02 11:15 | PD.ADDPROG ---
Addendum Progress Note Addendum Date of report being addended: 03/02/24 Narrative: Attending's attestation: I reviewed labs, imaging, EKG, home medications and prior available records. Face to face evaluation was performed by me. I have personally examined the patient and discussed assessment and plan with the IM team. I reviewed the resident note and agree with the plan with exceptions as below. Acute UTI Sepsis secondary to UTI Bilateral upper extremity weakness Generalized weakness, improved on lower extremities C3, C4 cervical spine stenosis Uncontrolled hypertension Continue IV cefepime per culture sensitivity Evaluated by PT: Recommended SNF Discussed with neurology: Recommended cervical spine MRI that showed severe C3 and C4 stenosis. Recommended transfer for neurosurgical evaluation. Started gabapentin and prednisone per neurology recommendations. Discussed with transfer nurse: Got accepted at [facility] pending bed. Started amlodipine for the hypertension. Monitor BP.
[2024-03-02] MEDS: PANTOPRAZOLE 40 MG TABLET PO (15:55)
--- NOTE | 2024-03-02 23:20 | PD.VPROG1 ---
Telemedicine visit statement This visit was conducted with the use of phone was obtained on 03/02/24 at 2320. Documentation for date of: 03/02/24 Subjective Subjective Interval history: Patient is in telemetry. No new symptoms reported. Neurosurgery transfer got accepted but he is waiting for a bed availability. continues to have numbness and stiffness in both extremities Virtual exam Vital Signs Temp Pulse Resp BP Pulse Ox O2 Del Method 97.5 F 91 16 127/76 97 Room Air 03/02/24 20:00 03/02/24 20:00 03/02/24 20:00 03/02/24 20:00 03/02/24 20:00 03/02/24 16:00 Objective Labs 03/01/24 04:55 03/01/24 04:55 Assessment & Plan Assessment (1) Paresthesia and pain of both upper extremities: Status: Acute Assessment and plan: Secondary to multilevel cervical spinal stenosis confirmed by MRI of the cervical spine. MRI of the cervical spine showed multilevel spinal stenosis especially at C3-4. Will continue him on gabapentin 300 mg twice a day and prednisone 10 mg a day for 5 days Patient needs transfer to neurosurgery because of the extent of stenosis even though he does not have any signs of myelopathy. He got accepted and is waiting for a bed. (2) Hypertension: Status: Acute Assessment and plan: Under control on nifedipine (3) Acute UTI: Status: Acute Assessment and plan: On antibiotics (4) Skull fracture: Status: Acute Assessment and plan: From recent fall confirmed by CT. Neurosurgery recommended conservative management
[2024-03-03] VITALS (7 sets, daily range): BP systolic 123–132; BP diastolic 77–85; PULSE 69–96; RESP 16–21; TEMP 36.2–36.4; O2SAT 95–99
[2024-03-03 06:20] LABS: Basophils # (Auto) 0.1 Thou/mm3 (0.0-0.2); Basophils % (Auto) 1 % (0-2.5); Eosinophils # (Auto) 0.4 Thou/mm3 (0.0-0.5); Eosinophils % (Auto) 3 % (0-10); Hematocrit 34.5 % (41.0-53.0); Hemoglobin 10.7 g/dL (13.5-16.0); Immature Granulocytes % (Auto) 1 % (0-0); Immature Granulocytes Auto 0.08 Thou/mm3 (0.00-0.00); Lymphocytes # (Auto) 2.2 Thou/mm3 (1.0-4.8); Lymphocytes % (Auto) 16 % (10-50); Mean Corpuscular Hemoglobin 23.9 pg (25.0-35.0); Mean Corpuscular Volume 77 fL (80-100); Monocytes # (Auto) 1.1 Thou/mm3 (0.0-0.8); Monocytes % (Auto) 8 % (0-12); Neutrophils # (Auto) 9.8 Thou/mm3 (1.8-7.7); Neutrophils % (Auto) 72 % (37-80); Nucleated Red Blood Cell % 0 /100 WBC (0); Platelet Count 430 Thou/mm3 (140-440); Red Blood Count 4.47 Miln/mm3 (4.50-5.90); White Blood Count 13.7 Thou/mm3 (3.8-10.6)
[2024-03-03 06:36] LABS: Anion Gap 8 (7-16); BUN/Creatinine Ratio 27 Ratio (12-20); Blood Urea Nitrogen 19 mg/dL (9-23); Carbon Dioxide 26.4 mMol/L (20.0-31.0); Chloride 104 mMol/L (98-107); Creatinine (Component) 0.7 mg/dL (0.6-1.3); Estimated Creatinine Clearance 114.6 mL/min (>60); Glucose 117 mg/dL (74-106); Osmolality,Calculated 278 (275-295); Potassium 3.9 mMol/L (3.4-5.1); Sodium 138 mMol/L (136-145); eGFR > 60 See Note
--- NOTE | 2024-03-03 07:12 | PC.CM ---
Addendum entered by Mac Coe RN 03/03/24 11:50: 1150 called [employer] at [phone] this time for veneer jointer operator for insurance auth, got the message that they are open from Monday to Monday 0800 am to 5 pm PT and they are now closed. Addendum entered by Mac Coe RN 03/03/24 11:49: 1049 called [employer] at [phone] Ext. [phone] for insurance auth, left message for Jossie. Addendum entered by Mac Coe RN 03/03/24 10:50: 1051 called [facility], spoke to Elayne and got information on [facility] Tax ID [id number], , Dr. Mayank Rodriguez . Original Note: 0705 [facility] informed me that she received call from Linda at [facility] and they need insurance auth for the transfer.
[2024-03-03] MEDS: predniSONE 5 MG TABLET 10 MG PO (09:06)
[2024-03-03] MEDS: GABAPENTIN 300 MG CAPSULE PO ×2 (09:06→20:46)
[2024-03-03] MEDS: PANTOPRAZOLE 40 MG TABLET PO (09:06)
[2024-03-03] MEDS: NIFEdipine XL 30 MG TABCR PO (09:06)
[2024-03-03] MEDS: CEFEPIME INJ 2 GM in SODIUM CHLORIDE 0.9% (P) 50 ML IV ×2 (09:09→20:49)
--- NOTE | 2024-03-03 14:35 | ESPR_ITS ---
Documentation for date of: 03/03/24 Subjective Subjective Interval history: No acute overnight events. Patient doing well. Sleeping well, tolerating oral intake without nausea or vomiting. Still has bilateral upper extremity numbness. Denies fever, chills, headaches, chest pain, sob, cough, GI or urinary symptoms. Pending transfer for neurovascular intervention. Will reach out to transfer nurse and left a voicemail. Will continue to follow-up. Exam Vital Signs Temp Pulse Resp BP Pulse Ox O2 Del Method 97.2 F 78 16 132/77 H 97 Room Air 03/03/24 12:00 03/03/24 12:00 03/03/24 12:00 03/03/24 12:00 03/03/24 12:00 03/03/24 12:00 Narrative Exam GENERAL: Disheveled appearing middle-aged male, no apparent distress HEENT: NCAT.?JUNAID. Oral mucosa is moist. Patent Nares. Mild tenderness over the right posterior skull, no obvious laceration or skin changes. NECK: Supple, nontender, no thyromegaly, no meningismus, no JVD, no step offs CHEST: Symmetrical, atraumatic, and with equal expansion, Nontender on palpation no deformity and no crepitus. CARDIOVASCULAR: RRR, no m/g/r LUNGS: CTAB, no w/r/r. Symmetrical chest rise. No intercostal subcostal retraction. ABDOMEN: Soft, flat, nontender. No guarding/rebound tenderness/masses. +BS EXTREMITIES: Nontender.? No edema/cyanosis.?Moves all 4 extremities well, with full ROM and good CSM. SKIN: Warm and dry, no jaundice/rashes. MSK: No lumbar or midline, no CVA, no paraspinal muscle spasm or tenderness. NEURO: WINN x4, CN II-XII grossly intact.?No focal neurologic deficits. PSYCHIATRIC: Normal mood and affect, cooperative, no SI or HI or hallucinations. Objective Labs 03/03/24 05:13 03/03/24 05:13 Labs: Laboratory Results - last 24 hr 03/03/24 05:13 WBC 13.7 H RBC 4.47 L Hgb 10.7 L Hct 34.5 L MCV 77 L MCH 23.9 L MCHC 31.0 RDW Std Deviation 44.0 H Plt Count 430 D Neut % (Auto) 72 Lymph % (Auto) 16 Bertie % (Auto) 8 Eos % (Auto) 3 Baso % (Auto) 1 Neut # (Auto) 9.8 H Lymph # (Auto) 2.2 Bertie # (Auto) 1.1 H Eos # (Auto) 0.4 Baso # (Auto) 0.1 Immature Gran # (Auto) 0.08 H Absolute Nucleated RBC 0.00 Immature Gran % 1 H Nucleated RBC % 0 Sodium 138 Potassium 3.9 D Chloride 104 Carbon Dioxide 26.4 Anion Gap 8 BUN 19 Creatinine 0.7 Estim Creat Clear Calc 114.6 eGFR > 60 BUN/Creatinine Ratio 27 H Glucose 117 H Calculated Osmolality 278 Calcium 9.0 Quality Measures Quality Measures VTE prophylaxis Advance care planning discussed with:: patient Assessment & Plan Assessment Current Active Medications: Generic Name Dose Route Start Last Admin Trade Name Freq PRN Reason Stop Dose Admin Acetaminophen 650 mg 02/28/24 08:44 Acetaminophen 325 Mg Tablet PO 03/28/24 15:51 Q6HR PRN Fever >100.4 or pain 1-5 Gabapentin 300 mg 03/02/24 09:00 03/03/24 09:06 Gabapentin 300 Mg Capsule PO 04/01/24 08:59 300 mg BID MIGUELINA Administration Heparin Sodium (Porcine) 5,000 unit 02/27/24 22:00 03/03/24 13:43 Heparin Sod Inj 5000 Unit/Ml Vial SC 03/12/24 21:59 Not Given Q8HR MIGUELINA Cefepime HCl 2 gm/ Sodium 50 mls @ 100 mls/hr 02/29/24 08:12 03/03/24 09:09 Chloride IV 03/10/24 08:11 100 mls/hr Q12HR MIGUELINA Administration Nifedipine 30 mg 03/01/24 09:00 03/03/24 09:06 Nifedipine Xl 30 Mg Tabcr PO 03/31/24 08:59 30 mg QDAY MIGUELINA Administration Ondansetron HCl 4 mg 02/27/24 15:39 Ondansetron Inj 2 Mg/Ml Inj 2 Ml IV 03/28/24 15:38 Q6H PRN NAUSEA OR VOMITING Protocol Oxycodone/Acetaminophen 1 tab 02/28/24 08:43 03/01/24 23:59 Oxycodone/Apap 5/325 Tablet PO 03/04/24 08:42 1 tab Q6HR PRN Administration Pain 6-10 Pantoprazole Sodium 40 mg 03/02/24 15:45 03/03/24 09:06 Pantoprazole 40 Mg Tablet PO 04/01/24 15:44 40 mg QDAY MIGUELINA Administration Prednisone 10 mg 03/02/24 09:00 03/03/24 09:06 Prednisone 5 Mg Tablet PO 03/09/24 00:09 10 mg QDAY MIGUELINA Administration Plan In summary: 68-year-old male with questionable history of hypertension, presented after ground-level fall, admitted for sepsis secondary to E. coli UTI (sens to CEF and BACTIM), now on CEFEPIME. 48 hours blood cx negative. Radiography was done for upper extremity numbness, showing severe spinal stenosis. Patient on PREDNISONE and GABAPENTIN. Pending answer for neuro surgical intervention. Appreciate recommendations from neurology, PT and social service director. Sepsis (resolved) E. coli UTI Leukocytosis Sepsis on admission with fever, tachycardia and leukocytosis, UA positive for UTI Adequately fluid resuscitated, culture grew E. coli, patient continued on CEFEPIME, leukocytosis resolved, patient afebrile ? Continue CEFEPIME (02/28?current) ? TYLENOL for fever ? Daily CBC ? Follow-up cultures: MDR E. coli sensitive to cefepime & Bactrim Ground-level fall Closed skull fracture Posterior bilateral distal upper extremity Severe cervical stenosis, pending transfer History of ground-level fall over a weeks ago CT head showed right frontal nondisplaced fracture spanning upper right frontal bone to the right supraorbital rim. No focal deficit on exam. No evidence of CSF leak or active bleed. Discussed with neurosurgery at [facility]: Recommended no transfer but conservative management. Patient endorsing sensation of bilateral hands. B12 on the lower end of normal, given 1 shot. MRI C-spine: C3-C4 severe overall spinal stenosis with 4 mm central subarticular osteophyte disc complex, facet arthropathy and thickening of ligamenta flava including advanced bilateral neural foraminal stenosis. Additional cervical spinal stenosis noted as well (C4-T1) => neurology recommended for patient to be transferred for neurosurgical evaluation Neurology consulted, recommendations as below: ? GABAPENTIN 300 mg twice daily ? PREDNISONE 10 mg p.o. daily ? Pending transfer to [facility] HTN Patient continued on NIFEDIPINE 30 mg daily with improvement of BP Iron deficiency anemia Hgb 11, MCV 76 Iron panel consistent with iron deficiency anemia Recommend to start iron supplementation once infection resolves Generalized weakness Complains of weeks of ongoing generalized weakness, present prior to recent falls ? Physical therapy Health maintenance Diet: Regular GI prophylaxis: Protonix DVT prophylaxis: HEPARIN subcu Antibiotics: CEFEPIME CODE STATUS: DNR Disposition: Pending transfer for neurosurgical eval of cervical stenosis; continue IV antibiotics Patient case was discussed with attending, Austin Jang DO and senior resident Dr. Harrison. Shyam Wheatley DO PGYI Attending Provider Attestation/Addendum I have discussed and was present for the essential components of the history, physical examination, diagnosis, and treatment plan with the resident. I agree with the patient's care as documented by the resident and amended herein by me. Rigo Jang DO. Patient pending transfer to [facility] once bed becomes available. Will continue cefepime for MDR E. coli UTI, gabapentin 300 mg p.o. twice daily and prednisone 10 mg p.o. daily for now. Although this document has been carefully reviewed, there may still be some phonetic and other typographical errors. These errors are purely grammatical due to imperfections in the software program and should not be construed in any way to compromise the substance of the patient's medical care during this visit.
--- NOTE | 2024-03-03 20:43 | PD.VPROG1 ---
Telemedicine visit statement This visit was conducted with the use of interactive audio and video telecommunications system that permits real time communication between the patient and the provider. Patient's verbal consent for virtual visit was obtained on 03/03/24 at 2043. Documentation for date of: 03/03/24 Subjective Subjective Interval history: Patient is in telemetry. No new symptoms reported. Neurosurgery transfer got accepted but he is waiting for insurance approval. continues to have numbness and stiffness in both upper and lower extremities Virtual exam Vital Signs Temp Pulse Resp BP Pulse Ox O2 Del Method 97.6 F 85 19 130/77 97 Room Air 03/03/24 16:00 03/03/24 16:00 03/03/24 16:00 03/03/24 16:00 03/03/24 16:00 03/03/24 16:00 Objective Labs 03/03/24 05:13 03/03/24 05:13 Labs: Laboratory Results - last 24 hr 03/03/24 05:13 WBC 13.7 H RBC 4.47 L Hgb 10.7 L Hct 34.5 L MCV 77 L MCH 23.9 L MCHC 31.0 RDW Std Deviation 44.0 H Plt Count 430 D Neut % (Auto) 72 Lymph % (Auto) 16 Hawkins % (Auto) 8 Eos % (Auto) 3 Baso % (Auto) 1 Neut # (Auto) 9.8 H Lymph # (Auto) 2.2 Hawkins # (Auto) 1.1 H Eos # (Auto) 0.4 Baso # (Auto) 0.1 Immature Gran # (Auto) 0.08 H Absolute Nucleated RBC 0.00 Immature Gran % 1 H Nucleated RBC % 0 Sodium 138 Potassium 3.9 D Chloride 104 Carbon Dioxide 26.4 Anion Gap 8 BUN 19 Creatinine 0.7 Estim Creat Clear Calc 114.6 eGFR > 60 BUN/Creatinine Ratio 27 H Glucose 117 H Calculated Osmolality 278 Calcium 9.0 Assessment & Plan Assessment (1) Paresthesia and pain of both upper extremities: Status: Acute Assessment and plan: Secondary to multilevel cervical spinal stenosis confirmed by MRI of the cervical spine. MRI of the cervical spine showed multilevel spinal stenosis especially at C3-4. Will continue him on gabapentin 300 mg twice a day and prednisone 10 mg a day for 5 days Patient needs transfer to neurosurgery because of the extent of stenosis even though he does not have any signs of myelopathy. He got accepted and is waiting for insurance authorization (2) Hypertension: Status: Acute Assessment and plan: Under control on nifedipine (3) Acute UTI: Status: Acute Assessment and plan: On antibiotics (4) Skull fracture: Status: Acute Assessment and plan: From recent fall confirmed by CT. Neurosurgery recommended conservative management
[2024-03-04] VITALS (7 sets, daily range): BP systolic 113–152; BP diastolic 56–88; PULSE 78–93; RESP 18–22; TEMP 36.2–36.8; O2SAT 94–99; BMI 29.9
[2024-03-04 06:04] LABS: Basophils # (Auto) 0.1 Thou/mm3 (0.0-0.2); Basophils % (Auto) 1 % (0-2.5); Eosinophils # (Auto) 0.3 Thou/mm3 (0.0-0.5); Eosinophils % (Auto) 3 % (0-10); Hematocrit 34.3 % (41.0-53.0); Hemoglobin 10.4 g/dL (13.5-16.0); Immature Granulocytes % (Auto) 1 % (0-0); Immature Granulocytes Auto 0.06 Thou/mm3 (0.00-0.00); Lymphocytes # (Auto) 1.7 Thou/mm3 (1.0-4.8); Lymphocytes % (Auto) 15 % (10-50); Mean Corpuscular HGB Conc 30.3 g/dl (31.0-37.0); Mean Corpuscular Hemoglobin 23.7 pg (25.0-35.0); Mean Corpuscular Volume 78 fL (80-100); Monocytes # (Auto) 0.7 Thou/mm3 (0.0-0.8); Monocytes % (Auto) 7 % (0-12); Neutrophils % (Auto) 74 % (37-80); Nucleated Red Blood Cell % 0 /100 WBC (0); Platelet Count 385 Thou/mm3 (140-440); RDW Standard Deviation 45.4 fL (35.1-43.9); Red Blood Count 4.39 Miln/mm3 (4.50-5.90); White Blood Count 10.9 Thou/mm3 (3.8-10.6)
[2024-03-04 06:30] LABS: Alanine Aminotransferase 18 U/L (10-49); Albumin, Serum 4.2 gm/dL (3.4-4.8); Albumin/Globulin Ratio 1.2 (1.2-2.2); Alkaline Phosphatase 111 U/L (46-116); Anion Gap 9 (7-16); Aspartate Amino Transferase 18 U/L (0-34); BUN/Creatinine Ratio 27 Ratio (12-20); Bilirubin,Total 0.4 mg/dL (0.3-1.2); Blood Urea Nitrogen 19 mg/dL (9-23); Carbon Dioxide 24.9 mMol/L (20.0-31.0); Chloride 103 mMol/L (98-107); Creatinine (Component) 0.7 mg/dL (0.6-1.3); Globulin 3.4 gm/dL (2.3-3.5); Glucose 125 mg/dL (74-106); Magnesium 2.2 mg/dL (1.6-2.6); Osmolality,Calculated 277 (275-295); Phosphorous 4.3 mg/dL (2.4-5.1); Potassium 3.8 mMol/L (3.4-5.1); Sodium 137 mMol/L (136-145); Total Protein 7.6 gm/dL (5.7-8.2); eGFR > 60 See Note
[2024-03-04] MEDS: oxyCODONE/APAP 5/325 TABLET 1 TAB PO ×2 (07:11→20:12)
--- NOTE | 2024-03-04 07:58 | ESPR_ITS ---
Documentation for date of: 03/04/24 Subjective Subjective Interval history: No acute overnight events. Patient doing well today. Complaining of dry cough which is chronic. Tolerating oral intake. Ambulating independently. Denies fever, chills, headaches, chest pain, sob, cough, GI or urinary symptoms. Exam Vital Signs Temp Pulse Resp BP Pulse Ox O2 Del Method 97.1 F 87 18 127/88 H 98 Room Air 03/04/24 04:00 03/04/24 04:00 03/04/24 04:00 03/04/24 04:00 03/04/24 04:00 03/04/24 04:00 Narrative Exam GENERAL: Disheveled appearing middle-aged male, no apparent distress HEENT: NCAT.?JUNAID. Oral mucosa is moist. Patent Nares. Mild tenderness over the right posterior skull, no obvious laceration or skin changes. NECK: Supple, nontender, no thyromegaly, no meningismus, no JVD, no step offs CHEST: Symmetrical, atraumatic, and with equal expansion, Nontender on palpation no deformity and no crepitus. CARDIOVASCULAR: RRR, no m/g/r LUNGS: CTAB, no w/r/r. Symmetrical chest rise. No intercostal subcostal retraction. ABDOMEN: Soft, flat, nontender. No guarding/rebound tenderness/masses. +BS EXTREMITIES: Nontender.? No edema/cyanosis.?Moves all 4 extremities well, with full ROM and good CSM. SKIN: Warm and dry, no jaundice/rashes. MSK: No lumbar or midline, no CVA, no paraspinal muscle spasm or tenderness. NEURO: WINN x4, CN II-XII grossly intact.?No focal neurologic deficits. PSYCHIATRIC: Normal mood and affect, cooperative, no SI or HI or hallucinations. Objective Labs 03/05/24 06:05 03/05/24 06:05 Labs: Laboratory Results - last 24 hr 03/04/24 05:00 WBC 10.9 H RBC 4.39 L Hgb 10.4 L Hct 34.3 L MCV 78 L MCH 23.7 L MCHC 30.3 L RDW Std Deviation 45.4 H Plt Count 385 D Neut % (Auto) 74 Lymph % (Auto) 15 [place] % (Auto) 7 Eos % (Auto) 3 Baso % (Auto) 1 Neut # (Auto) 8.0 H Lymph # (Auto) 1.7 [place] # (Auto) 0.7 Eos # (Auto) 0.3 Baso # (Auto) 0.1 Immature Gran # (Auto) 0.06 H Absolute Nucleated RBC 0.00 Immature Gran % 1 H Nucleated RBC % 0 Sodium 137 Potassium 3.8 Chloride 103 Carbon Dioxide 24.9 Anion Gap 9 BUN 19 Creatinine 0.7 Estim Creat Clear Calc 113.0 eGFR > 60 BUN/Creatinine Ratio 27 H Glucose 125 H Calculated Osmolality 277 Calcium 9.0 Corrected Calcium 9.0 Phosphorus 4.3 Magnesium 2.2 Total Bilirubin 0.4 AST 18 ALT 18 Alkaline Phosphatase 111 Total Protein 7.6 Albumin 4.2 Globulin 3.4 Albumin/Globulin Ratio 1.2 Quality Measures Quality Measures VTE prophylaxis Advance care planning discussed with:: patient Assessment & Plan Assessment Current Active Medications: Generic Name Dose Route Start Last Admin Trade Name Freq PRN Reason Stop Dose Admin Acetaminophen 650 mg 02/28/24 08:44 Acetaminophen 325 Mg Tablet PO 03/28/24 15:51 Q6HR PRN Fever >100.4 or pain 1-5 Gabapentin 300 mg 03/02/24 09:00 03/03/24 20:46 Gabapentin 300 Mg Capsule PO 04/01/24 08:59 300 mg BID MIGUELINA Administration Heparin Sodium (Porcine) 5,000 unit 02/27/24 22:00 03/04/24 05:09 Heparin Sod Inj 5000 Unit/Ml Vial SC 03/12/24 21:59 Not Given Q8HR MIGUELINA Cefepime HCl 2 gm/ Sodium 50 mls @ 100 mls/hr 02/29/24 08:12 03/03/24 20:49 Chloride IV 03/10/24 08:11 100 mls/hr Q12HR MIGUELINA Administration Nifedipine 30 mg 03/01/24 09:00 03/03/24 09:06 Nifedipine Xl 30 Mg Tabcr PO 03/31/24 08:59 30 mg QDAY MIGUELINA Administration Ondansetron HCl 4 mg 02/27/24 15:39 Ondansetron Inj 2 Mg/Ml Inj 2 Ml IV 03/28/24 15:38 Q6H PRN NAUSEA OR VOMITING Protocol Oxycodone/Acetaminophen 1 tab 02/28/24 08:43 03/04/24 07:11 Oxycodone/Apap 5/325 Tablet PO 03/04/24 08:42 1 tab Q6HR PRN Administration Pain 6-10 Pantoprazole Sodium 40 mg 03/02/24 15:45 03/03/24 09:06 Pantoprazole 40 Mg Tablet PO 04/01/24 15:44 40 mg QDAY MIGUELINA Administration Prednisone 10 mg 03/02/24 09:00 03/03/24 09:06 Prednisone 5 Mg Tablet PO 03/09/24 00:09 10 mg QDAY MIGUELINA Administration Plan In summary: 68-year-old male with questionable history of hypertension, presented after ground-level fall, admitted for sepsis secondary to E. coli UTI (sens to CEF and BACTIM), now on CEFEPIME. 48 hours blood cx negative. Radiography was done for upper extremity numbness, showing severe spinal stenosis. Patient on PREDNISONE and GABAPENTIN. Patient excepted at [facility] for neuro surgery intervention, currently pending insurance authorization. Appreciate recommendations from neurology, PT and social work administrator. Sepsis (resolved) E. coli UTI Leukocytosis (resolved) Sepsis on admission with fever, tachycardia and leukocytosis, UA positive for UTI Adequately fluid resuscitated, culture grew E. coli, patient continued on CEFEPIME, leukocytosis resolved, patient afebrile. 5 days blood culture negative. ? Continue CEFEPIME (02/28?current) ? TYLENOL for fever ? Daily CBC Ground-level fall Closed skull fracture Posterior bilateral distal upper extremity Severe cervical stenosis, pending transfer History of ground-level fall over a weeks ago CT head showed right frontal nondisplaced fracture spanning upper right frontal bone to the right supraorbital rim. No focal deficit on exam. No evidence of CSF leak or active bleed. Discussed with neurosurgery at [facility]: Recommended no transfer but conservative management. Patient endorsing sensation of bilateral hands. B12 on the DONNA, given 1 shot. MRI C-spine: C3-C4 severe overall spinal stenosis with 4 mm central subarticular osteophyte disc complex, facet arthropathy and thickening of ligamenta flava including advanced bilateral neural foraminal stenosis. Additional cervical spinal stenosis noted as well (C4-T1) => neurology recommended for patient to be transferred for neurosurgical evaluation Neurology consulted, recommendations as below: ? GABAPENTIN 300 mg twice daily ? PREDNISONE 10 mg p.o. daily ? Pending transfer to [facility] for neurosurgery intervention HTN Patient continued on NIFEDIPINE 30 mg daily with improvement of BP Iron deficiency anemia Hgb 11, MCV 76, no signs or symptoms of active bleeding Iron panel consistent with iron deficiency anemia ? Recommend to start iron supplementation once infection resolves Generalized weakness Complains of weeks of ongoing generalized weakness, present prior to recent falls ? Physical therapy Chronic cough Chronic nonproductive cough ? Started TESSALON 200 mg QID Health maintenance Diet: Regular GI prophylaxis: Protonix DVT prophylaxis: HEPARIN subcu Antibiotics: CEFEPIME CODE STATUS: DNR Disposition: Pending transfer for neurosurgical eval of cervical stenosis; continue IV antibiotics Patient case was discussed with attending, Ozzie Conner MD and senior resident Dr. Harrison. Shyam Wheatley DO PGYI L Mr. Presley is a 68-year-old male admitted for sepsis secondary to E. coli UTI, being treated with cefepime as per ID recommendations. Attending Provider Attestation/Addendum I reviewed labs, imaging, EKG, home medications and prior available records. Face to face evaluation was performed by me. I have personally examined the patient and discussed assessment and plan with the IM team. I reviewed the resident note and agree with the plan with exceptions as below. Acute UTI Sepsis secondary to UTI Bilateral upper extremity weakness Generalized weakness, improved on lower extremities C3, C4 cervical spine stenosis Uncontrolled hypertension Continue IV cefepime per culture sensitivity Evaluated by PT: Recommended SNF Discussed with neurology: Recommended cervical spine MRI that showed severe C3 and C4 stenosis. Recommended transfer for neurosurgical evaluation. Started gabapentin and prednisone per neurology recommendations. Discussed with transfer nurse: Got accepted at [facility] pending bed. Pending insurance authorization. Started amlodipine for the hypertension. Monitor BP.
--- NOTE | 2024-03-04 09:36 | PC.CM ---
Addendum entered by Lena Marie RN 03/04/24 18:01: I did not hear anything at the end of the day. I am back tomorrow so I will follow up. Addendum entered by Lena Marie RN 03/04/24 15:18: I received a call back from Pia at [facility]. She asked more detailed questions about patient and why he is needing a higher level transfer. I presented patient along with his needs. She states she received all that she needed and she was going to present it to her medical office technician. she stated she will get back us. Pia [facility] [phone] ext. [phone]. Addendum entered by Lena Marie RN 03/04/24 15:03: 1410 I called Olivia at [facility] to follow up on authorization request. I was only able to leave a message. Addendum entered by Lena Marie RN 03/04/24 10:35: Olivia with [facility] [employer] insurance called me back and I let her know [facility] has accepted patient for transfer. She requested I fax over supporting documentation. I faxed over supporting documentation and I provided her with the information for [facility] Tax ID [id number], , Dr. Mayank Rodriguez . Original Note: [id number] I called [facility] and I left a detailed message. phone #[phone]. faxed information to the department at [phone]. [phone] I called and spoke to Lisa at [facility] this morning. She stated they do have patient in their system. She stated we need to get authorization from patients insurance. I let her know I will be reaching out to them this morning. Dr. Wheatley called me and I gave him an update on transfer.
[2024-03-04] MEDS: PANTOPRAZOLE 40 MG TABLET PO (09:55)
[2024-03-04] MEDS: predniSONE 5 MG TABLET 10 MG PO (09:55)
[2024-03-04] MEDS: CEFEPIME INJ 2 GM in SODIUM CHLORIDE 0.9% (P) 50 ML IV ×2 (09:55→20:11)
[2024-03-04] MEDS: NIFEdipine XL 30 MG TABCR PO (09:55)
[2024-03-04] MEDS: GABAPENTIN 300 MG CAPSULE PO ×2 (09:55→20:12)
--- NOTE | 2024-03-04 10:12 | PD.RESPRO ---
Documentation for date of: 03/04/24 Subjective Subjective Interval history: No overnight events, patient still complaining of LE paresthesias. Pending transfer due to insurance issues. Exam Vital Signs Temp Pulse Resp BP Pulse Ox O2 Del Method 97.1 F 79 20 133/79 H 95 Room Air 03/04/24 08:00 03/04/24 08:00 03/04/24 08:00 03/04/24 08:00 03/04/24 08:00 03/04/24 08:00 Narrative Exam GENERAL: Disheveled appearing middle-aged male, no apparent distress HEENT: NCAT.?JUNAID. Oral mucosa is moist. Patent Nares. Mild tenderness over the right posterior skull, no obvious laceration or skin changes. NECK: Supple, nontender, no thyromegaly, no meningismus, no JVD, no step offs CHEST: Symmetrical, atraumatic, and with equal expansion, Nontender on palpation no deformity and no crepitus. CARDIOVASCULAR: RRR, no m/g/r LUNGS: CTAB, no w/r/r. Symmetrical chest rise. No intercostal subcostal retraction. ABDOMEN: Soft, flat, nontender. No guarding/rebound tenderness/masses. +BS EXTREMITIES: Nontender.? No edema/cyanosis.?Moves all 4 extremities well, with full ROM and good CSM. SKIN: Warm and dry, no jaundice/rashes. MSK: No lumbar or midline, no CVA, no paraspinal muscle spasm or tenderness. NEURO: WINN x4, CN II-XII grossly intact.?No focal neurologic deficits. PSYCHIATRIC: Normal mood and affect, cooperative, no SI or HI or hallucinations. Objective Labs 03/06/24 05:27 03/06/24 05:27 Labs: Laboratory Results - last 24 hr 03/04/24 05:00 WBC 10.9 H RBC 4.39 L Hgb 10.4 L Hct 34.3 L MCV 78 L MCH 23.7 L MCHC 30.3 L RDW Std Deviation 45.4 H Plt Count 385 D Neut % (Auto) 74 Lymph % (Auto) 15 [place] % (Auto) 7 Eos % (Auto) 3 Baso % (Auto) 1 Neut # (Auto) 8.0 H Lymph # (Auto) 1.7 [place] # (Auto) 0.7 Eos # (Auto) 0.3 Baso # (Auto) 0.1 Immature Gran # (Auto) 0.06 H Absolute Nucleated RBC 0.00 Immature Gran % 1 H Nucleated RBC % 0 Sodium 137 Potassium 3.8 Chloride 103 Carbon Dioxide 24.9 Anion Gap 9 BUN 19 Creatinine 0.7 Estim Creat Clear Calc 113.0 eGFR > 60 BUN/Creatinine Ratio 27 H Glucose 125 H Calculated Osmolality 277 Calcium 9.0 Corrected Calcium 9.0 Phosphorus 4.3 Magnesium 2.2 Total Bilirubin 0.4 AST 18 ALT 18 Alkaline Phosphatase 111 Total Protein 7.6 Albumin 4.2 Globulin 3.4 Albumin/Globulin Ratio 1.2 Quality Measures Quality Measures VTE prophylaxis Advance care planning discussed with:: patient Assessment & Plan Assessment Current Active Medications: Generic Name Dose Route Start Last Admin Trade Name Freq PRN Reason Stop Dose Admin Acetaminophen 650 mg 02/28/24 08:44 Acetaminophen 325 Mg Tablet PO 03/28/24 15:51 Q6HR PRN Fever >100.4 or pain 1-5 Gabapentin 300 mg 03/02/24 09:00 03/03/24 20:46 Gabapentin 300 Mg Capsule PO 04/01/24 08:59 300 mg BID MIGUELINA Administration Heparin Sodium (Porcine) 5,000 unit 02/27/24 22:00 03/04/24 05:09 Heparin Sod Inj 5000 Unit/Ml Vial SC 03/12/24 21:59 Not Given Q8HR MIGUELINA Cefepime HCl 2 gm/ Sodium 50 mls @ 100 mls/hr 02/29/24 08:12 03/03/24 20:49 Chloride IV 03/10/24 08:11 100 mls/hr Q12HR MIGUELINA Administration Nifedipine 30 mg 03/01/24 09:00 03/03/24 09:06 Nifedipine Xl 30 Mg Tabcr PO 03/31/24 08:59 30 mg QDAY MIGUELINA Administration Ondansetron HCl 4 mg 02/27/24 15:39 Ondansetron Inj 2 Mg/Ml Inj 2 Ml IV 03/28/24 15:38 Q6H PRN NAUSEA OR VOMITING Protocol Pantoprazole Sodium 40 mg 03/02/24 15:45 03/03/24 09:06 Pantoprazole 40 Mg Tablet PO 04/01/24 15:44 40 mg QDAY MIGUELINA Administration Prednisone 10 mg 03/02/24 09:00 03/03/24 09:06 Prednisone 5 Mg Tablet PO 03/09/24 00:09 10 mg QDAY MIGUELINA Administration Plan 68-year-old male with questionable history of hypertension, presented after ground-level fall, admitted for sepsis secondary to E. coli UTI (sens to CEF and BACTIM), now on CEFEPIME. 48 hours blood cx negative. Radiography was done for upper extremity numbness, showing severe spinal stenosis. Patient on PREDNISONE and GABAPENTIN. Pending answer for neuro surgical intervention. #Ground-level fall #Closed skull fracture #Severe cervical stenosis, pending transfer History of ground-level fall over a weeks ago CT head showed right frontal nondisplaced fracture spanning upper right frontal bone to the right supraorbital rim. No focal deficit on exam. No evidence of CSF leak or active bleed. MRI of the cervical spine showed multilevel spinal stenosis especially at C3-4. Continue him on gabapentin 300 mg twice a day and prednisone 10 mg a day for 5 days Patient needs transfer to neurosurgery because of the extent of stenosis even though he does not have any signs of myelopathy. He got accepted and is waiting for insurance authorization Patient's care discussed with attending physician, Dr Zohra Black MD PGY3 Attending Provider Attestation/Addendum I personally have seen and examined the patient and agree with resident findings, assessment and plan of care. Patient continued to have subjective paresthesias and weakness and pain. No focal objective neurological deficit noted. Pending insurance approval for transfer. Continue with current management
[2024-03-04] MEDS: ACETAMINOPHEN 325 MG TABLET 650 MG PO (17:42)
[2024-03-04] MEDS: BENZONATATE 100 MG CAPSULE 200 MG PO (17:42)
[2024-03-05] VITALS (7 sets, daily range): BP systolic 107–137; BP diastolic 55–98; PULSE 88–111; RESP 17–25; TEMP 36.7–38.1; O2SAT 69–97
[2024-03-05] MEDS: oxyCODONE/APAP 5/325 TABLET 1 TAB PO ×3 (03:48→22:15)
[2024-03-05 06:28] LABS: Basophils # (Auto) 0.1 Thou/mm3 (0.0-0.2); Basophils % (Auto) 1 % (0-2.5); Eosinophils # (Auto) 0.1 Thou/mm3 (0.0-0.5); Eosinophils % (Auto) 2 % (0-10); Hematocrit 32.7 % (41.0-53.0); Hemoglobin 10.1 g/dL (13.5-16.0); Immature Granulocytes % (Auto) 1 % (0-0); Immature Granulocytes Auto 0.05 Thou/mm3 (0.00-0.00); Lymphocytes # (Auto) 0.4 Thou/mm3 (1.0-4.8); Lymphocytes % (Auto) 4 % (10-50); Mean Corpuscular HGB Conc 30.9 g/dl (31.0-37.0); Mean Corpuscular Hemoglobin 23.7 pg (25.0-35.0); Mean Corpuscular Volume 77 fL (80-100); Monocytes % (Auto) 11 % (0-12); Neutrophils # (Auto) 7.5 Thou/mm3 (1.8-7.7); Neutrophils % (Auto) 82 % (37-80); Nucleated Red Blood Cell % 0 /100 WBC (0); Platelet Count 335 Thou/mm3 (140-440); RDW Standard Deviation 44.4 fL (35.1-43.9); Red Blood Count 4.26 Miln/mm3 (4.50-5.90); White Blood Count 9.1 Thou/mm3 (3.8-10.6)
--- NOTE | 2024-03-05 06:28 | PC.NURSE ---
DR. MUNIZ MADE AWARE OF PSVT. NO C/O CP. PT WITH CHRONIC PAIN, RESTLESS. NO NEW ORDERS
[2024-03-05 07:10] LABS: Alanine Aminotransferase 23 U/L (10-49); Albumin, Serum 4.1 gm/dL (3.4-4.8); Albumin/Globulin Ratio 1.2 (1.2-2.2); Alkaline Phosphatase 109 U/L (46-116); Anion Gap 9 (7-16); Aspartate Amino Transferase 27 U/L (0-34); BUN/Creatinine Ratio 21 Ratio (12-20); Bilirubin,Total 0.3 mg/dL (0.3-1.2); Blood Urea Nitrogen 15 mg/dL (9-23); Calcium 8.8 mg/dL (8.3-10.6); Calcium (Corrected) 8.8 mg/dL (8.5-10.1); Chloride 99 mMol/L (98-107); Creatinine (Component) 0.7 mg/dL (0.6-1.3); Estimated Creatinine Clearance 112.3 mL/min (>60); Globulin 3.5 gm/dL (2.3-3.5); Glucose 99 mg/dL (74-106); Magnesium 2.1 mg/dL (1.6-2.6); Osmolality,Calculated 269 (275-295); Phosphorous 3.3 mg/dL (2.4-5.1); Potassium 4.1 mMol/L (3.4-5.1); Sodium 134 mMol/L (136-145); Total Protein 7.6 gm/dL (5.7-8.2); eGFR > 60 See Note
--- NOTE | 2024-03-05 07:24 | ESPR_ITS ---
Documentation for date of: 03/05/24 Subjective Subjective Interval history: Patient seen and examined at bedside. Overnight, patient had an episode of nonsustained Vtach at HR in 180s, which spontaneously resolved. EKG taken this morning shows sinus tachycardia. Vitals, labs reviewed. Patient c/o severe chronic back pain, continues to have numbness in glove/stocking distribution, but states the heaviness feeling in his arms has gotten worse. Also is having pain in his legs. He was not able to sleep well last night, and is lethargic but remains AAOx3. We are currently still pending authorization from insurance company, with [facility] accepting the patient pending insurance auth and bed availability. Neurology is following the patient daily, appreciate recs: will continue prednisone and gabapentin. Overall, patient is tolerating diet and has been having BMs. Exam Vital Signs Temp Pulse Resp BP Pulse Ox O2 Del Method 98.4 F 99 25 H 123/98 H 96 Room Air 03/05/24 04:00 03/05/24 04:00 03/05/24 04:00 03/05/24 04:00 03/05/24 04:00 03/05/24 04:00 Narrative Exam Gen: AAOx3, disheveled elderly male, pleasant to speak with, lethargic HEENT: NCAT, PERRLA, EOMI, MMM, TTP on R side of head CVS: normal S1, S2. RRR. No MRG Resp: CTA B/L. No rhonchi, rales, crackles or wheezing Abd: soft, non-tender, non-distended. BS+ in all 4 quadrants MSK: Good ROM in BUE & BLE. No edema or rash. Neuro: CN II-XII grossly intact. Strength 4/5 in BUE & BLE. Decreased sensation in fingertips & feet. Objective Labs 03/06/24 05:27 03/06/24 05:27 Labs: Laboratory Results - last 24 hr 03/05/24 06:05 WBC 9.1 RBC 4.26 L Hgb 10.1 L Hct 32.7 L MCV 77 L MCH 23.7 L MCHC 30.9 L RDW Std Deviation 44.4 H Plt Count 335 D Neut % (Auto) 82 H Lymph % (Auto) 4 L [place] % (Auto) 11 Eos % (Auto) 2 Baso % (Auto) 1 Neut # (Auto) 7.5 Lymph # (Auto) 0.4 L [place] # (Auto) 1.0 H Eos # (Auto) 0.1 Baso # (Auto) 0.1 Immature Gran # (Auto) 0.05 H Absolute Nucleated RBC 0.00 Immature Gran % 1 H Nucleated RBC % 0 Sodium 134 L Potassium 4.1 Chloride 99 Carbon Dioxide 26.0 Anion Gap 9 BUN 15 Creatinine 0.7 Estim Creat Clear Calc 112.3 eGFR > 60 BUN/Creatinine Ratio 21 H Glucose 99 Calculated Osmolality 269 L Calcium 8.8 Corrected Calcium 8.8 Phosphorus 3.3 Magnesium 2.1 Total Bilirubin 0.3 AST 27 ALT 23 Alkaline Phosphatase 109 Total Protein 7.6 Albumin 4.1 Globulin 3.5 Albumin/Globulin Ratio 1.2 Quality Measures Quality Measures VTE prophylaxis Advance care planning discussed with:: patient Assessment & Plan Assessment Current Active Medications: Generic Name Dose Route Start Last Admin Trade Name Freq PRN Reason Stop Dose Admin Acetaminophen 650 mg 02/28/24 08:44 03/04/24 17:42 Acetaminophen 325 Mg Tablet PO 03/28/24 15:51 650 mg Q6HR PRN Administration Fever >100.4 or pain 1-5 Benzonatate 200 mg 03/04/24 16:43 03/04/24 17:42 Benzonatate 100 Mg Capsule PO 04/03/24 16:42 200 mg Q6H PRN Administration COUGH Protocol Gabapentin 300 mg 03/02/24 09:00 03/04/24 20:12 Gabapentin 300 Mg Capsule PO 04/01/24 08:59 300 mg BID MIGUELINA Administration Heparin Sodium (Porcine) 5,000 unit 02/27/24 22:00 03/05/24 05:27 Heparin Sod Inj 5000 Unit/Ml Vial SC 03/12/24 21:59 Not Given Q8HR MIGUELINA Cefepime HCl 2 gm/ Sodium 50 mls @ 100 mls/hr 02/29/24 08:12 03/04/24 20:11 Chloride IV 03/10/24 08:11 100 mls/hr Q12HR MIGUELINA Administration Nifedipine 30 mg 03/01/24 09:00 03/04/24 09:55 Nifedipine Xl 30 Mg Tabcr PO 03/31/24 08:59 30 mg QDAY MIGUELINA Administration Ondansetron HCl 4 mg 02/27/24 15:39 Ondansetron Inj 2 Mg/Ml Inj 2 Ml IV 03/28/24 15:38 Q6H PRN NAUSEA OR VOMITING Protocol Oxycodone/Acetaminophen 1 tab 03/04/24 20:00 03/05/24 03:48 Oxycodone/Apap 5/325 Tablet PO 03/09/24 19:59 1 tab Q6HR PRN Administration Severe pain RATED 7-10 Pantoprazole Sodium 40 mg 03/02/24 15:45 03/04/24 09:55 Pantoprazole 40 Mg Tablet PO 04/01/24 15:44 40 mg QDAY MIGUELINA Administration Prednisone 10 mg 03/02/24 09:00 03/04/24 09:55 Prednisone 5 Mg Tablet PO 03/09/24 00:09 10 mg QDAY MIGUELINA Administration Plan In summary: 68-year-old male with questionable history of hypertension, presented after ground-level fall, admitted for sepsis secondary to E. coli UTI (sens to CEF and BACTIM), now on CEFEPIME. 48 hours blood cx negative. Radiography was done for upper extremity numbness, showing severe spinal stenosis. Patient on PREDNISONE and GABAPENTIN. Patient excepted at [facility] for neuro surgery intervention, currently pending insurance authorization. Appreciate recommendations from neurology, PT and social welfare research worker. Sepsis (resolved) E. coli UTI Leukocytosis (resolved) Sepsis on admission with fever, tachycardia and leukocytosis, UA positive for UTI Adequately fluid resuscitated, culture grew E. coli, patient continued on CEFEPIME, leukocytosis resolved, patient afebrile. 5 days blood culture negative. ? Continue CEFEPIME ? TYLENOL for fever ? Daily CBC Ground-level fall Closed skull fracture Paresthesias in BUE, BLE (stocking/glove distribution) Severe cervical stenosis, pending transfer History of ground-level fall over a weeks ago CT head showed right frontal nondisplaced fracture spanning upper right frontal bone to the right supraorbital rim. No focal deficit on exam. No evidence of CSF leak or active bleed. Discussed with neurosurgery at [facility]: Recommended no transfer but conservative management. Patient endorsing sensation of bilateral hands. B12 on the DONNA, given 1 shot. MRI C-spine: C3-C4 severe overall spinal stenosis with 4 mm central subarticular osteophyte disc complex, facet arthropathy and thickening of ligamenta flava including advanced bilateral neural foraminal stenosis. Additional cervical spinal stenosis noted as well (C4-T1) => neurology recommended for patient to be transferred for neurosurgical evaluation Neurology consulted, recommendations as below: ? GABAPENTIN 300 mg twice daily ? PREDNISONE 10 mg p.o. daily ? Pending transfer to [facility] for neurosurgery intervention. Insurance auth pending. HTN Patient continued on NIFEDIPINE 30 mg daily with improvement of BP. Will hold for SBP <110 or DBP <60 Iron deficiency anemia Hgb 11, MCV 76, no signs or symptoms of active bleeding Iron panel consistent with iron deficiency anemia ? Recommend to start iron supplementation once infection resolves Generalized weakness Chronic back pain Complains of weeks of ongoing generalized weakness, present prior to recent falls May possibly be related to multiple ? Physical therapy Oxycodone q6h prn Chronic cough Chronic nonproductive cough ? Discontinued TESSALON 200 mg QID Will add robitussin for cough, prn Health maintenance Diet: Regular GI prophylaxis: Protonix DVT prophylaxis: HEPARIN subcu Antibiotics: CEFEPIME CODE STATUS: DNR Disposition: Pending transfer for neurosurgical eval of cervical stenosis; continue IV antibiotics to complete course Patient seen and care discussed with my attending Dr. Conner. Adolfo Ferrer MD PGY-3 Attending Provider Attestation/Addendum I reviewed labs, imaging, EKG, home medications and prior available records. Face to face evaluation was performed by me. I have personally examined the patient and discussed assessment and plan with the IM team. I reviewed the resident note and agree with the plan with exceptions as below. Paroxysmal SVT Acute UTI Sepsis secondary to UTI Bilateral upper extremity weakness Generalized weakness, improved on lower extremities C3, C4 cervical spine stenosis Uncontrolled hypertension Heart rate improved with adequate pain management Continue IV cefepime for 7 days per culture sensitivity Evaluated by PT: Recommended SNF Discussed with neurology: Recommended cervical spine MRI that showed severe C3 and C4 stenosis. Recommended transfer for neurosurgical evaluation. Started gabapentin and prednisone per neurology recommendations. Discussed with transfer nurse: Got accepted at [facility] pending bed. Pending insurance authorization. Discussed again with transfer nurse: Insurance declined the transfer given the absence of myelopathy. Discussed with neurology: Okay to discharge to rehab. Started amlodipine for the hypertension. Monitor BP.
[2024-03-05] MEDS: predniSONE 5 MG TABLET 10 MG PO (08:53)
[2024-03-05] MEDS: CEFEPIME INJ 2 GM in SODIUM CHLORIDE 0.9% (P) 50 ML IV ×2 (08:53→21:35)
[2024-03-05] MEDS: PANTOPRAZOLE 40 MG TABLET PO (08:53)
[2024-03-05] MEDS: GABAPENTIN 300 MG CAPSULE PO ×2 (08:53→21:35)
--- NOTE | 2024-03-05 09:06 | PC.NURSE ---
Dr. Rojas aware pt. BP 107/58. orders to hold nifedipine dose this AM.
--- NOTE | 2024-03-05 09:51 | PC.SS ---
Follow up note: SS spoke to Pia @ [facility]. Their medical lab director wants to view all updated notes from Neuro consult. SS faxed all documentation for review. Pia @ [facility] , #[phone]
--- NOTE | 2024-03-05 10:16 | ESPR_ITS ---
Documentation for date of: 03/05/24 Subjective Subjective Interval history: Patient was examined bedside this morning, no acute overnight event. still pending transfer due to insurance issues . Exam Vital Signs Temp Pulse Resp BP Pulse Ox O2 Del Method 99.0 F 93 17 107/58 L 69 L Room Air 03/05/24 08:00 03/05/24 08:53 03/05/24 08:00 03/05/24 08:53 03/05/24 08:00 03/05/24 08:00 Narrative Exam GENERAL: Comfortable adult seen resting comfortably in hospital bed, no acute distress VITALS: All vitals were reviewed and the pulse ox is 98% on room air HEENT: Normocephalic, atraumatic. Pupils are equal and reactive. Oral mucosa is moist. NECK: Supple, nontender, no JVD CHEST: Symmetrical, atraumatic and with equal expansion ,Nontender on palpation CARDIOVASCULAR: Heart regular rhythm & rate. S1/S2. no murmur or gallop rub or extra beats. LUNGS: Clear to auscultation bilaterally with symmetrical chest rise. No laboring tachypnea or wheezing. No intercostal subcostal retraction. No rales and no rhonchi. ABDOMEN: Soft, flat, nontender to palpation, no guarding or rebound tenderness. Active and normal bowel sounds. EXTREMITIES:Moves all 4 extremities,No B/L LE edema. SKIN: Warm and dry, no jaundice or rashes noted. NEURO: Patient is AO x 3, Cranial nerves II through XII grossly intact. There is no focal neurologic deficits noted. PSYCHIATRIC: Patient is in normal mood, cooperative, no SI or HI or hallucinations. Objective Labs 03/05/24 06:05 03/05/24 06:05 Labs: Laboratory Results - last 24 hr 03/05/24 06:05 WBC 9.1 RBC 4.26 L Hgb 10.1 L Hct 32.7 L MCV 77 L MCH 23.7 L MCHC 30.9 L RDW Std Deviation 44.4 H Plt Count 335 D Neut % (Auto) 82 H Lymph % (Auto) 4 L [place] % (Auto) 11 Eos % (Auto) 2 Baso % (Auto) 1 Neut # (Auto) 7.5 Lymph # (Auto) 0.4 L [place] # (Auto) 1.0 H Eos # (Auto) 0.1 Baso # (Auto) 0.1 Immature Gran # (Auto) 0.05 H Absolute Nucleated RBC 0.00 Immature Gran % 1 H Nucleated RBC % 0 Sodium 134 L Potassium 4.1 Chloride 99 Carbon Dioxide 26.0 Anion Gap 9 BUN 15 Creatinine 0.7 Estim Creat Clear Calc 112.3 eGFR > 60 BUN/Creatinine Ratio 21 H Glucose 99 Calculated Osmolality 269 L Calcium 8.8 Corrected Calcium 8.8 Phosphorus 3.3 Magnesium 2.1 Total Bilirubin 0.3 AST 27 ALT 23 Alkaline Phosphatase 109 Total Protein 7.6 Albumin 4.1 Globulin 3.5 Albumin/Globulin Ratio 1.2 Quality Measures Quality Measures VTE prophylaxis Advance care planning discussed with:: patient Assessment & Plan Assessment Current Active Medications: Generic Name Dose Route Start Last Admin Trade Name Freq PRN Reason Stop Dose Admin Acetaminophen 650 mg 02/28/24 08:44 03/04/24 17:42 Acetaminophen 325 Mg Tablet PO 03/28/24 15:51 650 mg Q6HR PRN Administration Fever >100.4 or pain 1-5 Benzonatate 200 mg 03/04/24 16:43 03/04/24 17:42 Benzonatate 100 Mg Capsule PO 04/03/24 16:42 200 mg Q6H PRN Administration COUGH Protocol Gabapentin 300 mg 03/02/24 09:00 03/05/24 08:53 Gabapentin 300 Mg Capsule PO 04/01/24 08:59 300 mg BID MIGUELINA Administration Heparin Sodium (Porcine) 5,000 unit 02/27/24 22:00 03/05/24 05:27 Heparin Sod Inj 5000 Unit/Ml Vial SC 03/12/24 21:59 Not Given Q8HR MIGUELINA Cefepime HCl 2 gm/ Sodium 50 mls @ 100 mls/hr 02/29/24 08:12 03/05/24 08:53 Chloride IV 03/10/24 08:11 100 mls/hr Q12HR MIGUELINA Administration Nifedipine 30 mg 03/01/24 09:00 03/05/24 08:53 Nifedipine Xl 30 Mg Tabcr PO 03/31/24 08:59 Not Given QDAY MIGUELINA Ondansetron HCl 4 mg 02/27/24 15:39 Ondansetron Inj 2 Mg/Ml Inj 2 Ml IV 03/28/24 15:38 Q6H PRN NAUSEA OR VOMITING Protocol Oxycodone/Acetaminophen 1 tab 03/04/24 20:00 03/05/24 03:48 Oxycodone/Apap 5/325 Tablet PO 03/09/24 19:59 1 tab Q6HR PRN Administration Severe pain RATED 7-10 Pantoprazole Sodium 40 mg 03/02/24 15:45 03/05/24 08:53 Pantoprazole 40 Mg Tablet PO 04/01/24 15:44 40 mg QDAY MIGUELINA Administration Prednisone 10 mg 03/02/24 09:00 03/05/24 08:53 Prednisone 5 Mg Tablet PO 03/09/24 00:09 10 mg QDAY MIGUELINA Administration Plan 68-year-old male with questionable history of hypertension, presented after ground-level fall, admitted for sepsis secondary to E. coli UTI (sens to CEF and BACTIM), now on CEFEPIME. 48 hours blood cx negative. Radiography was done for upper extremity numbness, showing severe spinal stenosis. Patient on PREDNISONE and GABAPENTIN. Pending answer for neuro surgical intervention. #Ground-level fall #Closed skull fracture #Severe cervical stenosis, pending transfer -History of ground-level fall over a weeks ago -CT head showed right frontal nondisplaced fracture spanning upper right frontal bone to the right supraorbital rim. No focal deficit on exam. No evidence of CSF leak or active bleed. -MRI of the cervical spine showed multilevel spinal stenosis especially at C3-4. -Continue him on gabapentin 300 mg twice a day and prednisone 10 mg a day for 5 days -Patient needs transfer to neurosurgery because of the extent of stenosis even though he does not have any signs of myelopathy. -He got accepted and is waiting for insurance authorization Patient's care discussed with attending physician, Dr Zohra Krishna MD PGY3 Attending Provider Attestation/Addendum I personally have seen and examined the patient at the bedside and I agree with resident's findings, assessment and plan of care. As the insurance denied transfer and the patient has been stable without any significant objective motor deficit, we may have to discharge him on gabapentin. Follow-up with neurosurgery as an outpatient and he would need EMG nerve conduction study of both upper extremities after the insurance approval.
--- NOTE | 2024-03-05 10:32 | EKG_ITS ---
[facility] Test Date: 2024-03-05 Pat Name: SAMI JEROME [facility] Sander Operator: CATHY : 1955 Requested By: Florencio Harrison Order Number: [id number] Reading MD: Florencio Harrison Measurements Intervals [place] Rate: 100 P: 34 [place]: 128 QRS: -35 QRSD: 101 T: 68 QT: 346 QTc: 448 Interpretive Statements SINUS TACHYCARDIA MARKED LEFT AXIS DEVIATION No previous ECG available for comparison /store/S0/[id number].pdf
--- NOTE | 2024-03-05 10:40 | PC.NURSE ---
RT Hightower aware of EKG order
--- NOTE | 2024-03-05 13:36 | PC.CM ---
Addendum entered by Lena Marie RN 03/05/24 18:15: I called [facility] and I let them know patient patient's insurance declined need for transfer so it will be canceled at this time. Addendum entered by eLna Marie RN 03/05/24 15:47: 1440 I received a call back from [place] with [facility]. She states the medical management specialist reviewed all the notes and documentation and he declined the request for transfer. He stated patient can be managed medically and does not need surgical care. He states the documentation shows no myelopathy in the setting of cervical stenosis, no UA paresthesis, and normal DRT. I called Dr. Conner and I provided him with the information. He was going to speak to Dr. العلي and he stated he would get back to me if he had any questions. Addendum entered by Lena Marie RN 03/05/24 13:40: I reached out to [place] with [facility]. She states her medical management specialist is still reviewing patient. She states she will get back to me hopefully today with an answer. Original Note: 1200 I spoke to [facility] and I let them know we are still pending authorization. 0900 I reached out to [place] with [facility] [employer]. [phone] ext. [phone]. she asked me to fax updated information along with Dr. العلي's notes. I faxed everything this morning. Pia states she will forward updated information to her medical management specialist.
[2024-03-05 15:58] LABS: Creatine Kinase 83 U/L (34-171)
[2024-03-05] MEDS: HEPARIN SOD INJ 5000 UNIT/ML VIAL SC (21:35)
[2024-03-06] VITALS (7 sets, daily range): BP systolic 119–138; BP diastolic 71–82; PULSE 74–98; RESP 13–20; TEMP 36.6–37.4; O2SAT 95–97; BMI 30.3
[2024-03-06 05:45] LABS: Basophils # (Auto) 0.1 Thou/mm3 (0.0-0.2); Basophils % (Auto) 1 % (0-2.5); Eosinophils % (Auto) 0 % (0-10); Hemoglobin 10.3 g/dL (13.5-16.0); Immature Granulocytes % (Auto) 1 % (0-0); Immature Granulocytes Auto 0.06 Thou/mm3 (0.00-0.00); Lymphocytes # (Auto) 0.9 Thou/mm3 (1.0-4.8); Lymphocytes % (Auto) 9 % (10-50); Mean Corpuscular HGB Conc 31.2 g/dl (31.0-37.0); Mean Corpuscular Hemoglobin 23.6 pg (25.0-35.0); Mean Corpuscular Volume 76 fL (80-100); Monocytes # (Auto) 1.4 Thou/mm3 (0.0-0.8); Monocytes % (Auto) 14 % (0-12); Neutrophils # (Auto) 7.3 Thou/mm3 (1.8-7.7); Neutrophils % (Auto) 76 % (37-80); Nucleated Red Blood Cell % 0 /100 WBC (0); Platelet Count 284 Thou/mm3 (140-440); RDW Standard Deviation 43.5 fL (35.1-43.9); Red Blood Count 4.36 Miln/mm3 (4.50-5.90); White Blood Count 9.7 Thou/mm3 (3.8-10.6)
[2024-03-06 06:11] LABS: Alanine Aminotransferase 23 U/L (10-49); Albumin, Serum 4.1 gm/dL (3.4-4.8); Albumin/Globulin Ratio 1.2 (1.2-2.2); Alkaline Phosphatase 105 U/L (46-116); Anion Gap 6 (7-16); Aspartate Amino Transferase 29 U/L (0-34); BUN/Creatinine Ratio 24 Ratio (12-20); Bilirubin,Total 0.4 mg/dL (0.3-1.2); Blood Urea Nitrogen 17 mg/dL (9-23); Calcium 8.3 mg/dL (8.3-10.6); Calcium (Corrected) 8.3 mg/dL (8.5-10.1); Carbon Dioxide 28.8 mMol/L (20.0-31.0); Chloride 96 mMol/L (98-107); Creatinine (Component) 0.7 mg/dL (0.6-1.3); Estimated Creatinine Clearance 113.6 mL/min (>60); Globulin 3.3 gm/dL (2.3-3.5); Glucose 91 mg/dL (74-106); Magnesium 2.1 mg/dL (1.6-2.6); Osmolality,Calculated 264 (275-295); Phosphorous 4.1 mg/dL (2.4-5.1); Sodium 131 mMol/L (136-145); Total Protein 7.4 gm/dL (5.7-8.2); eGFR > 60 See Note
--- NOTE | 2024-03-06 07:21 | PC.NURSE ---
Pt. is very non compliant with fall precautions and instructions. pt. continues to state I can walk fine, leave that alarm off. telesitter at bedside for pt. safety. Education continues to be provided to pt.
--- NOTE | 2024-03-06 07:49 | PD.RESPRO ---
Documentation for date of: 03/06/24 Exam Vital Signs Temp Pulse Resp BP Pulse Ox O2 Del Method 99.3 F 76 16 138/73 H 95 Room Air 03/06/24 04:00 03/06/24 04:00 03/06/24 04:00 03/06/24 04:00 03/06/24 04:00 03/06/24 04:00 Objective Labs 03/06/24 05:27 03/06/24 05:27 Labs: Laboratory Results - last 24 hr 03/05/24 03/06/24 06:05 05:27 WBC 9.7 RBC 4.36 L Hgb 10.3 L Hct 33.0 L MCV 76 L MCH 23.6 L MCHC 31.2 RDW Std Deviation 43.5 Plt Count 284 D Neut % (Auto) 76 Lymph % (Auto) 9 L [place] % (Auto) 14 H Eos % (Auto) 0 Baso % (Auto) 1 Neut # (Auto) 7.3 Lymph # (Auto) 0.9 L [place] # (Auto) 1.4 H Eos # (Auto) 0.0 Baso # (Auto) 0.1 Immature Gran # (Auto) 0.06 H Absolute Nucleated RBC 0.00 Immature Gran % 1 H Nucleated RBC % 0 Sodium 131 L Potassium 4.0 Chloride 96 L Carbon Dioxide 28.8 Anion Gap 6 L BUN 17 Creatinine 0.7 Estim Creat Clear Calc 113.6 eGFR > 60 BUN/Creatinine Ratio 24 H Glucose 91 Calculated Osmolality 264 L Calcium 8.3 Corrected Calcium 8.3 L Phosphorus 4.1 Magnesium 2.1 Total Bilirubin 0.4 AST 29 ALT 23 Alkaline Phosphatase 105 Total Creatine Kinase 83 Total Protein 7.4 Albumin 4.1 Globulin 3.3 Albumin/Globulin Ratio 1.2 Quality Measures Quality Measures VTE prophylaxis Assessment & Plan Assessment Current Active Medications: Generic Name Dose Route Start Last Admin Trade Name Freq PRN Reason Stop Dose Admin Acetaminophen 650 mg 02/28/24 08:44 03/04/24 17:42 Acetaminophen 325 Mg Tablet PO 03/28/24 15:51 650 mg Q6HR PRN Administration Fever >100.4 or pain 1-5 Gabapentin 300 mg 03/02/24 09:00 03/05/24 21:35 Gabapentin 300 Mg Capsule PO 04/01/24 08:59 300 mg BID MIGUELINA Administration Guaifenesin 100 mg 03/05/24 10:32 Guaifenesin Syrup 200 Mg/10 Ml Udc PO 04/04/24 13:59 TID PRN COUGH Protocol Heparin Sodium (Porcine) 5,000 unit 02/27/24 22:00 03/06/24 05:22 Heparin Sod Inj 5000 Unit/Ml Vial SC 03/12/24 21:59 Not Given Q8HR MIGUELINA Cefepime HCl 2 gm/ Sodium 50 mls @ 100 mls/hr 02/29/24 08:12 03/06/24 05:21 Chloride IV 03/10/24 08:11 Infused Q12HR MIGUELINA Infusion Nifedipine 30 mg 03/05/24 13:43 Nifedipine Xl 30 Mg Tabcr PO 03/31/24 08:59 QDAY MIGUELINA Ondansetron HCl 4 mg 02/27/24 15:39 Ondansetron Inj 2 Mg/Ml Inj 2 Ml IV 03/28/24 15:38 Q6H PRN NAUSEA OR VOMITING Protocol Oxycodone/Acetaminophen 1 tab 03/04/24 20:00 03/05/24 22:15 Oxycodone/Apap 5/325 Tablet PO 03/09/24 19:59 1 tab Q6HR PRN Administration Severe pain RATED 7-10 Pantoprazole Sodium 40 mg 03/02/24 15:45 03/05/24 08:53 Pantoprazole 40 Mg Tablet PO 04/01/24 15:44 40 mg QDAY MIGUELINA Administration Prednisone 10 mg 03/02/24 09:00 03/05/24 08:53 Prednisone 5 Mg Tablet PO 03/09/24 00:09 10 mg QDAY MIGUELINA Administration Plan In summary: 68-year-old male with questionable history of hypertension, presented after ground-level fall, admitted for sepsis secondary to E. coli UTI (sens to CEF and BACTIM), now on CEFEPIME. 48 hours blood cx negative. Radiography was done for upper extremity numbness, showing severe spinal stenosis. Patient on PREDNISONE and GABAPENTIN. Patient excepted at [facility] for neuro surgery intervention, currently pending insurance authorization. Appreciate recommendations from neurology, PT and social insurance specialist. febrile overnight, T100.6, no leukocytosis PT independent Sepsis (resolved) E. coli UTI Leukocytosis (resolved) Sepsis on admission with fever, tachycardia and leukocytosis, UA positive for UTI Adequately fluid resuscitated, culture grew E. coli, patient continued on CEFEPIME, leukocytosis resolved, patient afebrile. 5 days blood culture negative. ? Continue CEFEPIME ? TYLENOL for fever ? Daily CBC Ground-level fall Closed skull fracture Paresthesias in BUE, BLE (stocking/glove distribution) Severe cervical stenosis, pending transfer History of ground-level fall over a weeks ago CT head showed right frontal nondisplaced fracture spanning upper right frontal bone to the right supraorbital rim. No focal deficit on exam. No evidence of CSF leak or active bleed. Discussed with neurosurgery at [facility]: Recommended no transfer but conservative management. Patient endorsing sensation of bilateral hands. B12 on the DONNA, given 1 shot. MRI C-spine: C3-C4 severe overall spinal stenosis with 4 mm central subarticular osteophyte disc complex, facet arthropathy and thickening of ligamenta flava including advanced bilateral neural foraminal stenosis. Additional cervical spinal stenosis noted as well (C4-T1) => neurology recommended for patient to be transferred for neurosurgical evaluation Neurology consulted, recommendations as below: ? GABAPENTIN 300 mg twice daily ? PREDNISONE 10 mg p.o. daily ? Pending transfer to [facility] for neurosurgery intervention. Insurance auth pending. HTN Patient continued on NIFEDIPINE 30 mg daily with improvement of BP. Will hold for SBP <110 or DBP <60 Iron deficiency anemia Hgb 11, MCV 76, no signs or symptoms of active bleeding Iron panel consistent with iron deficiency anemia ? Recommend to start iron supplementation once infection resolves Generalized weakness Chronic back pain Complains of weeks of ongoing generalized weakness, present prior to recent falls May possibly be related to multiple ? Physical therapy Oxycodone q6h prn Chronic cough Chronic nonproductive cough ? Discontinued TESSALON 200 mg QID Will add robitussin for cough, prn Health maintenance Diet: Regular GI prophylaxis: Protonix DVT prophylaxis: HEPARIN subcu Antibiotics: CEFEPIME CODE STATUS: DNR Disposition: Pending transfer for neurosurgical eval of cervical stenosis; continue IV antibiotics to complete course Patient seen and care discussed with my attending Dr. Conner. Adolfo Ferrer MD PGY-3
[2024-03-06] MEDS: PANTOPRAZOLE 40 MG TABLET PO (08:27)
[2024-03-06] MEDS: GABAPENTIN 300 MG CAPSULE PO (08:27)
[2024-03-06] MEDS: predniSONE 5 MG TABLET 10 MG PO (08:27)
[2024-03-06] MEDS: NIFEdipine XL 30 MG TABCR PO (08:27)
[2024-03-06] MEDS: CEFEPIME INJ 2 GM in SODIUM CHLORIDE 0.9% (P) 50 ML IV (08:28)
[2024-03-06] MEDS: oxyCODONE/APAP 5/325 TABLET 1 TAB PO (08:42)
--- NOTE | 2024-03-06 08:43 | PD.RESPRO ---
Documentation for date of: 03/06/24 Subjective Subjective Interval history: Patient was examined bedside this morning, No acute overnight events. Insurance declined the transfer Exam Vital Signs Temp Pulse Resp BP Pulse Ox O2 Del Method 99.4 F 98 20 138/74 H 95 Room Air 03/06/24 08:00 03/06/24 08:27 03/06/24 08:00 03/06/24 08:27 03/06/24 08:00 03/06/24 08:00 Narrative Exam GENERAL: Comfortable adult seen resting comfortably in hospital bed, no acute distress VITALS: All vitals were reviewed and the pulse ox is 98% on room air HEENT: Normocephalic, atraumatic. Pupils are equal and reactive. Oral mucosa is moist. NECK: Supple, nontender, no JVD CHEST: Symmetrical, atraumatic and with equal expansion ,Nontender on palpation CARDIOVASCULAR: Heart regular rhythm & rate. S1/S2. no murmur or gallop rub or extra beats. LUNGS: Clear to auscultation bilaterally with symmetrical chest rise. No laboring tachypnea or wheezing. No intercostal subcostal retraction. No rales and no rhonchi. ABDOMEN: Soft, flat, nontender to palpation, no guarding or rebound tenderness. Active and normal bowel sounds. EXTREMITIES:Moves all 4 extremities,No B/L LE edema. SKIN: Warm and dry, no jaundice or rashes noted. NEURO: Patient is AO x 3, Cranial nerves II through XII grossly intact. There is no focal neurologic deficits noted. PSYCHIATRIC: Patient is in normal mood, cooperative, no SI or HI or hallucinations. Objective Labs 03/06/24 05:27 03/06/24 05:27 Labs: Laboratory Results - last 24 hr 03/05/24 03/06/24 06:05 05:27 WBC 9.7 RBC 4.36 L Hgb 10.3 L Hct 33.0 L MCV 76 L MCH 23.6 L MCHC 31.2 RDW Std Deviation 43.5 Plt Count 284 D Neut % (Auto) 76 Lymph % (Auto) 9 L [place] % (Auto) 14 H Eos % (Auto) 0 Baso % (Auto) 1 Neut # (Auto) 7.3 Lymph # (Auto) 0.9 L [place] # (Auto) 1.4 H Eos # (Auto) 0.0 Baso # (Auto) 0.1 Immature Gran # (Auto) 0.06 H Absolute Nucleated RBC 0.00 Immature Gran % 1 H Nucleated RBC % 0 Sodium 131 L Potassium 4.0 Chloride 96 L Carbon Dioxide 28.8 Anion Gap 6 L BUN 17 Creatinine 0.7 Estim Creat Clear Calc 113.6 eGFR > 60 BUN/Creatinine Ratio 24 H Glucose 91 Calculated Osmolality 264 L Calcium 8.3 Corrected Calcium 8.3 L Phosphorus 4.1 Magnesium 2.1 Total Bilirubin 0.4 AST 29 ALT 23 Alkaline Phosphatase 105 Total Creatine Kinase 83 Total Protein 7.4 Albumin 4.1 Globulin 3.3 Albumin/Globulin Ratio 1.2 Quality Measures Quality Measures VTE prophylaxis Advance care planning discussed with:: patient Assessment & Plan Assessment Current Active Medications: Generic Name Dose Route Start Last Admin Trade Name Freq PRN Reason Stop Dose Admin Acetaminophen 650 mg 02/28/24 08:44 03/04/24 17:42 Acetaminophen 325 Mg Tablet PO 03/28/24 15:51 650 mg Q6HR PRN Administration Fever >100.4 or pain 1-5 Gabapentin 300 mg 03/02/24 09:00 03/06/24 08:27 Gabapentin 300 Mg Capsule PO 04/01/24 08:59 300 mg BID MIGUELINA Administration Guaifenesin 100 mg 03/05/24 10:32 Guaifenesin Syrup 200 Mg/10 Ml Udc PO 04/04/24 13:59 TID PRN COUGH Protocol Heparin Sodium (Porcine) 5,000 unit 02/27/24 22:00 03/06/24 05:22 Heparin Sod Inj 5000 Unit/Ml Vial SC 03/12/24 21:59 Not Given Q8HR MIGUELINA Cefepime HCl 2 gm/ Sodium 50 mls @ 100 mls/hr 02/29/24 08:12 03/06/24 08:28 Chloride IV 03/10/24 08:11 100 mls/hr Q12HR MIGUELINA Administration Nifedipine 30 mg 03/05/24 13:43 03/06/24 08:27 Nifedipine Xl 30 Mg Tabcr PO 03/31/24 08:59 30 mg QDAY MIGUELINA Administration Ondansetron HCl 4 mg 02/27/24 15:39 Ondansetron Inj 2 Mg/Ml Inj 2 Ml IV 03/28/24 15:38 Q6H PRN NAUSEA OR VOMITING Protocol Oxycodone/Acetaminophen 1 tab 03/04/24 20:00 03/06/24 08:42 Oxycodone/Apap 5/325 Tablet PO 03/09/24 19:59 1 tab Q6HR PRN Administration Severe pain RATED 7-10 Pantoprazole Sodium 40 mg 03/02/24 15:45 03/06/24 08:27 Pantoprazole 40 Mg Tablet PO 04/01/24 15:44 40 mg QDAY MIGUELINA Administration Prednisone 10 mg 03/02/24 09:00 03/06/24 08:27 Prednisone 5 Mg Tablet PO 03/09/24 00:09 10 mg QDAY MIGUELINA Administration Plan 68-year-old male with questionable history of hypertension, presented after ground-level fall, admitted for sepsis secondary to E. coli UTI (sens to CEF and BACTIM), now on CEFEPIME. 48 hours blood cx negative. Radiography was done for upper extremity numbness, showing severe spinal stenosis. Patient on PREDNISONE and GABAPENTIN. Pending answer for neuro surgical intervention. #Ground-level fall #Closed skull fracture #Severe cervical stenosis, pending transfer -History of ground-level fall over a weeks ago -CT head showed right frontal nondisplaced fracture spanning upper right frontal bone to the right supraorbital rim. No focal deficit on exam. No evidence of CSF leak or active bleed. -MRI of the cervical spine showed multilevel spinal stenosis especially at C3-4. -Continue him on gabapentin 300 mg twice a day and prednisone 10 mg a day for 5 days(total) -As the insurance denied transfer and the patient has been stable without any significant objective motor deficit, discharge him on gabapentin. Follow-up with neurosurgery as an outpatient and he would need EMG nerve conduction study of both upper extremities after the insurance approval. Patient's care discussed with attending physician, Dr Zohra Krishna MD PGY3 Attending Provider Attestation/Addendum I personally have seen and examined the patient at the bedside and agree with resident findings, assessment and plan of care. Patient is stable for discharge home on current management as the insurance declined the transfer. Will do EMG nerve conduction study of both upper extremities as an outpatient with approval.
--- NOTE | 2024-03-06 10:10 | ESDS_ITS ---
<Statement entered by Florencio Harrison MD - 03/06/24 13:36> Patient was examined with the team including attending physician. Note reviewed, I agree with the discharge plan as documented. - Florencio Harrison M.D. PGY2 Planned Discharge Date 03/06/24 DS: Providers Provider Date of admission: 02/27/24 15:41 Primary care physician: Physician No Primary/Family Admitting Provider: Ozzie Conner MD Attending Provider on Admission: Ozzie Conner MD Consults: 02/27/24 12:30 Referral - Beauty Culturist Apprentice Stat Service Needed for Transfer: Neurosurgery Addl Comments:: Patient fell 4-5 days ago, he is not certain of the exact date. Head CT is negative for bleed but has significant skull fracture, right frontal nondisplaced skull fracture extending from the upper right frontal bone to the right supraorbital rim. 02/27/24 15:55 Referral Physical Therapy Stat Comment: Physician Instructions: 02/29/24 10:28 Consult to Neurology / Tele-Neurology Routine Comment: Consulting Provider: Marquis العلي Consult to Neurology / Tele-Neurology Stat Comment: bilateral weakness, mainly in hands Consulting Provider: Marquis العلي 03/06/24 10:01 [facility] Referral - Transportation Routine Comment: Positive screening for transportation needs. Attending Provider on DC: Ozzie Conner MD Discharging Provider: Ozzie Conner MD DS: Diagnosis Problem List Completed Was Problem List Reviewed/Reconciled?: Yes Hospital Course Hospital Course Hospital course: This is a 68-year-old male with questionable history of hypertension, presented after ground-level fall, admitted for sepsis secondary to E. coli UTI and completed course of ANTIBIOTICS. 48 hours blood cx negative. Continues resolved. Radiography was done for upper extremity numbness, showing severe spinal stenosis. Patient on PREDNISONE and GABAPENTIN. An attempt Q2H transferred to higher level of care for possible surgical intervention rejected, per no immediate surgical intervention indication. Patient will follow-up with neurology outpatient for further evaluation. Patient stable at the time of discharge. He will discharge to senior living facility as recommended by physical therapy. PATIENT INSTRUCTIONS: Follow-up with your PCP or [facility] at the address below within 1 week of discharge Follow-up with neurology, Dr. العلي, within 1-2 weeks of discharge You'll need to follow-up with surgery for your upper extremity numbness, this may requires authorization from your primary care provider. Please discuss this with primary care provider. Return to Emergency Room if symptoms persist, worsen, or new symptoms develop. Continue taking medications as prescribed below: ? GABAPENTIN 300 mg 2 times daily for pain ? NIFEDIPINE 300 mg daily [facility] [place], [place] [id number] ADMISSION DIAGNOSES: Sepsis (resolved) E. coli UTI (resolved) Leukocytosis (resolved) Ground-level fall Closed skull fracture Paresthesias in BUE, BLE (stocking/glove distribution) Severe cervical stenosis, pending transfer HTN Iron deficiency anemia Generalized weakness Chronic back pain Chronic cough Patient case was discussed with attending, Ozzie Conner MD and senior residents Dr. Ferrer and Dr. Harrison. DO SOBEIDA Means Time Spent with Patient Time attestation: Total time spent providing and/or coordinating discharge services: Greater than 35 minutes. Exam Vital Signs Temp Pulse Resp BP Pulse Ox O2 Del Method 99.4 F 98 20 138/74 H 95 Room Air 03/06/24 08:00 03/06/24 08:27 03/06/24 08:00 03/06/24 08:27 03/06/24 08:00 03/06/24 08:00 Narrative Exam GENERAL: Disheveled appearing middle-aged male, no apparent distress HEENT: NCAT.?JUNAID. Oral mucosa is moist. Patent Nares. Mild tenderness over the right posterior skull, no obvious laceration or skin changes. NECK: Supple, nontender, no thyromegaly, no meningismus, no JVD, no step offs CHEST: Symmetrical, atraumatic, and with equal expansion, Nontender on palpation no deformity and no crepitus. CARDIOVASCULAR: RRR, no m/g/r LUNGS: CTAB, no w/r/r. Symmetrical chest rise. No intercostal subcostal retraction. ABDOMEN: Soft, flat, nontender. No guarding/rebound tenderness/masses. +BS EXTREMITIES: Nontender.? No edema/cyanosis.?Moves all 4 extremities well, with full ROM and good CSM. SKIN: Warm and dry, no jaundice/rashes. MSK: No lumbar or midline, no CVA, no paraspinal muscle spasm or tenderness. NEURO: WINN x4, CN II-XII grossly intact.?No focal neurologic deficits. PSYCHIATRIC: Normal mood and affect, cooperative, no SI or HI or hallucinations. Discharge Plan Plan Patient Disposition: Xfer Skilled Nsg Fac (SNF) Patient condition on transfer: Stable Prescriptions/Referrals Prescriptions/Med Rec: New gabapentin 300 mg capsule 300 mg PO BID 30 Days Qty: 60 0RF nifedipine 30 mg tablet extended release 30 mg PO QDAY 30 Days Qty: 30 0RF Referrals: No Primary/Family,Physician [Primary Care Provider] - Marquis العلي MD [Physician] - Patient/Caregiver Discharge Instructions Discharge Activity: as per physical therapy and resume usual activities Other Discharge Activity Instructions:: Follow-up with your PCP or [facility] at the address below within 1 week of discharge Follow-up with neurology, Dr. العلي, within 1-2 weeks of discharge. You will also need follow up with neurosurgery outpatient. You may need a referral from your PCP. Return to Emergency Room if symptoms persist, worsen, or new symptoms develop. Continue taking medications as prescribed below: ? GABAPENTIN 300 mg 2 times daily for pain ? NIFEDIPINE 300 mg daily [facility] [address] [place], [place] [id number] Education Materials: Anatomy of a Normal Spine, Communicating About Pain Print Language: Hungarian Stand Alone Forms: Bobbi Award Info., Patient Portal Info Letter Discharge Order Discharge Orders: Discharge (Routine); Ordered 03/06/24 Ordered By: Florencio Harrison Quality Discharge Quality Measures VTE prophylaxis Attestestation MD Attestation I reviewed labs, imaging, EKG, home medications and prior available records. Face to face evaluation was performed by me. I have personally examined the patient and discussed assessment and plan with the IM team. I reviewed the resident note and agree with the plan with exceptions as below. Paroxysmal SVT Acute UTI Sepsis secondary to UTI Bilateral upper extremity weakness Generalized weakness, improved on lower extremities C3, C4 cervical spine stenosis Uncontrolled hypertension Heart rate improved with adequate pain management Completed IV cefepime for 7 days per culture sensitivity Evaluated by PT: Recommended SNF Discussed with neurology: Recommended cervical spine MRI that showed severe C3 and C4 stenosis. Recommended transfer for neurosurgical evaluation. Started gabapentin and prednisone per neurology recommendations. Discussed with transfer nurse: Got accepted at [facility] pending bed. Pending insurance a uthorization. Discussed again with transfer nurse: Insurance declined the transfer given the absence of myelopathy. Discussed with neurology: Okay to discharge to rehab. Outpatient follow-up with neurosurgery. Follow-up with neurology for further studies including EMG and peripheral nerve studies. Continue gabapentin upon discharge. Started amlodipine for the hypertension. Monitor BP. Time spent is 40 minutes. More than 50% of the time was spent on patient education and coordination of care.
--- NOTE | 2024-03-06 15:03 | PC.SS ---
Follow up note: SS spoke to insurance and they authorized for patient to d/c to [facility]. SS spoke to Mackenzie @ [facility] and they confirmed auth. Patient was denied transfer higher level of care. Patient has no coverage for gurney transport. Patient will d/c via gurney at 4p.m. by [place]
--- NOTE | 2024-03-06 16:48 | PC.NURSE ---
Dispatch called and pt. will be picked up at 1800.
== END 2024-03-06 17:55 | disposition skilled nursing facility (03) | DRG 872 ==
LOC: SERX 15:28 → SERHOLD 16:28 → S2NX 18:23
PROVIDERS: Student in an Organized Health Care Education/Training Program; Admitting Provider Student in an Organized Health Care Education/Training Program; Emergency Provider Emergency Medicine; Visit Provider Student in an Organized Health Care Education/Training Program
DX: A41.51 Sepsis due to Escherichia coli [E. coli] (principal); N39.0 Urinary tract infection, site not specified; S02.0XXA Fracture of vault of skull, initial encounter for closed fracture; I47.19 Other supraventricular tachycardia; W18.30XA Fall on same level, unspecified, initial encounter; I10 Essential (primary) hypertension; M48.02 Spinal stenosis, cervical region; D50.9 Iron deficiency anemia, unspecified; G89.29 Other chronic pain; M54.50 Low back pain, unspecified; R29.6 Repeated falls; R05.3 Chronic cough; Z66 Do not resuscitate; M47.819 Spondylosis without myelopathy or radiculopathy, site unspecified
CPT/HCPCS: 36415; 70450; 70486; 71045; 71250; 72125; 72128; 72131; 72156; 74176; 80048; 80053; 81001; 82550; 82607; 82728; 83540; 83550; 83605; 83735; 84100; 84145; 85025; 87040; 87077; 87086; 87186; 87400; 87634; 87651; 87811; 93005; 96361; 96365; 96367; 97162; 99285; A9579; J0456; J0692; J0696; J1643; J1885; J3420; J3475; J7030; J7050; J7512; A9270; J1644

== ENCOUNTER 2024-08-13 11:41 | Inpatient (IN) | payer MEDICARE, MEDICAID, SELFPAY ==
[2024-08-13] VITALS (14 sets, daily range): BP systolic 111–152; BP diastolic 58–87; PULSE 70–104; RESP 13–96; TEMP 36.3–39.3; O2SAT 94–96; BMI 28.8; BMI 32.9
--- NOTE | 2024-08-13 12:07 | XR_ITS ---
Examination: AP chest single view TECHNIQUE: Portable sitting AP chest single view Date and time: August 13, 2024 1232 hours Comparison February 27, 2024 INDICATIONS: Chest pain today. FINDINGS: Early bibasilar pneumonia Normal heart size Moderate osteopenia IMPRESSION: Early bibasilar pneumonia
--- NOTE | 2024-08-13 12:07 | EKG_ITS ---
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1955 Requested By: Dorothy Feng Order Number: [id number] Reading MD: Dorothy Feng Measurements Intervals [place] Rate: 87 P: 42 NH: 158 QRS: -36 QRSD: 111 T: 62 QT: 364 QTc: 439 Interpretive Statements SINUS RHYTHM LEFT AXIS DEVIATION [QRS AXIS < -30] INCOMPLETE RIGHT BUNDLE BRANCH BLOCK [90+ ms QRS DURATION, TERMINAL R IN V1/V2, 40+ ms S IN I/aVL/V4/V5/V6] TYPE 3 BRUGADA PATTERN (NON-DIAGNOSTIC) [COVED/SADDLEBACK ST ELEVATION > 0.1mV IN 2 OF V1-3] Compared to ECG 03/05/2024 11:01:08 Incomplete right bundle-branch block now present ST (T wave) deviation now present Sinus tachycardia no longer present /store/S0/[id number]/[id number].pdf
--- NOTE | 2024-08-13 12:21 | EDNOTE_ITS ---
ED General RME/HPI General Chief complaint: Weakness Stated complaint: GENERALIZED WEAKNESS Time Seen by Provider: 08/13/24 12:15 Arrival date/time: 08/13/24 11:41 RME / HPI RME / HPI narrative: DR. LOWE MAIN ED EVALUATION: 69 year old male presents to the Emergency Department [facility] with complaint of generalized weakness onset 2 days. Patient states that the ex- called an ambulance because the patient was weak. He smells like urine and states the accident happened at home sine he was weak. He is unsure of having a fever at home but here it was 102.4 F. Patient denies any dysuria or other symptoms at this time. PMHx: Questionable history of hypertension and admitted in the past for sepsis secondary to E. coli UTI. Social Hx: No tobacco, alcohol, or substance use. Related Data Allergies Allergy/AdvReac Type Severity Reaction Status Date / Time No Known Allergies Allergy Verified 02/27/24 09:34 Review of Systems Review of Systems Systems Reviewed: All systems reviewed, normal except as documented Narrative Review of Systems: GEN: + fever, no chills, no weight loss EYES: No discharge, no visual changes, no pain HEENT: No ear pain, no congestion, no sore throat PULM: No shortness of breath, no cough, no congestion CV: No chest pain, no dyspnea on exertion, no palpitations GI: No nausea, no vomiting, no diarrhea, no pain, no constipation : No frequency, no urgency and no dysuria MUSC/SKEL: No joint pain, no back pain SKIN: No rash PSYCH: No hallucinations, no depression HEME/LYMPH: No easy bleeding or bruising tendencies NEURO: + generalized weakness, no headache Past Medical History Past Medical History RESPIRATORY: Positive Sleep Apnea Social History SMOKING STATUS: Never smoker SUBSTANCE USE: does not use ALCOHOL: Never ED Exam Narrative Physical exam: GENERAL APPEARANCE: alert and oriented x 4, well-developed, well-nourished, no acute distress, patient smells like urine and has poor hygiene VITALS: All vitals were reviewed and the pulse ox is 95% on room air, which is normal according to my interpretation. HEENT: Normocephalic, atraumatic; pupils equal, round, reactive to light; EOMI; mucous membranes pink, moist; oropharynx clear NECK: Supple LUNGS: CTABL; no wheezes, no rales, no rhonchi HEART: Regular rate, regular rhythm; normal S1, S2; no murmurs ABDOMEN: non distended; normal BS; soft, no tenderness, no guarding, no rebound; no masses, no organomegaly, no hernia BACK: no CVA tenderness EXTREMITIES: atraumatic; no edema NEUROLOGIC: awake; alert and oriented x4; cranial nerves II-XII grossly intact; no focal sensory or motor deficits PSYCHIATRIC: appropriate mood and affect SKIN: warm, dry, normal color; no rashes Course Quality Measures Current suspected stage: sepsis Possible source: genitourinary (UTI) Blood cultures ordered: yes Antibiotic ordered: Yes Pertinent labs: 08/13/24 13:23 Lactic Acid 1.9 mMol/L (0.4-2.0) Procalcitonin 1.19 H ng/ml (0.0-0.49) sepsis Orders Category Date Time Status 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 NOW Care 08/13/24 12:07 Active EKG (ED ONLY) *Do not use* NOW Care 08/13/24 12:07 Completed EKG (ED Only) Stat Exams 08/13/24 12:07 Draft XR chest 1V portable Stat Exams 08/13/24 12:07 Completed Alcohol, Blood Medical Stat Lab 08/13/24 13:23 Completed B-Type Natriuretic Peptide Stat Lab 08/13/24 13:23 Completed Blood Culture (Lab) Stat Lab 08/13/24 13:23 Received CBC Stat Lab 08/13/24 13:23 Completed Comprehensive Metabolic Panel Stat Lab 08/13/24 13:23 Completed Drug Screen,Urine Stat Lab 08/13/24 14:46 Completed Lactate (Lactic Acid) Stat Lab 08/13/24 13:23 Completed Lipase Stat Lab 08/13/24 13:23 Completed Magnesium Stat Lab 08/13/24 13:23 Completed Partial Thromboplastin Time Stat Lab 08/13/24 13:23 Completed Procalcitonin Stat Lab 08/13/24 13:23 Completed Prothrombin Time with INR Stat Lab 08/13/24 13:23 Completed Troponin I Stat Lab 08/13/24 13:23 Completed Urinalysis Stat Lab 08/13/24 14:46 Completed Urine Culture Stat Lab 08/13/24 14:46 Received Acetaminophen Tab [Tylenol ES Tab] Med 08/13/24 12:08 Discontinued 1,000 mg PO X1 ONE Sodium Chloride 0.9% 1000 ml [Ns] 1,000 ml Med 08/13/24 12:07 Discontinued IV 999 mls/hr cefTRIAXone/D5w 1gm IV premix [Rocephin/D5w 1gm IV Med 08/13/24 15:56 Discontinued premix] 1 gm in 50 ml IV X1 Vital Signs Vital signs: Vital Signs Temperature 99.6 F 08/13/24 11:46 Pulse Rate 102 H 08/13/24 11:46 Respiratory Rate 18 08/13/24 11:46 Blood Pressure 152/84 H 08/13/24 11:46 Pulse Oximetry (%) 95 08/13/24 11:46 Oxygen Delivery Method Room Air 08/13/24 11:46 Critical Care Time Critical Care Time Critical Care Time: Yes Total Critical Care Time (min.): 45 Attestation: The high probability of sudden, clinically significant deterioration in the patient?s condition required the highest level of my preparedness to intervene urgently. The services I provided to this patient were to treat and/or prevent clinically significant deterioration. Services included the following: chart data review, reviewing nursing notes and/or old charts, documentation time, senior solutions consultant collaboration regarding findings and treatment options, medication orders and management, direct patient care, vital sign assessments and ordering, interpreting and reviewing diagnostic studies and lab tests. Aggregate critical care time includes only time during which I was engaged in work directly related to the patient?s care, as described above, whether at bedside or elsewhere in the Emergency Department. It did not include time spent performing other reported procedures or the services of residents, students, nurses or physician assistants. Discharge Plan Plan Patient Disposition: Admit Acute Care w/in Hospital Prescriptions/Referrals Referrals: No Primary/Family,Physician [Primary Care Provider] - In 1 week Problem List Clinical Impression: Sepsis secondary to UTI, Sepsis, Acute UTI, Methamphetamine abuse Patient/Caregiver Discharge Instructions Print Language: Swedish Stand Alone Forms: Bobbi Award Info., Patient Portal Info Letter MDM Narrative MDM hospital course: I, Raisa Norris am scribing for and in the presence of Dr. Lowe. Clinical Information Provided by EMS Medical Records Reviewed EMS Meds/Rx Considered, not Ordered None Labs/Rad/Tests considered, not Ordered None Chronic Illness/Social Conditions Add or document further as needed: Questionable history of hypertension and admitted in the past for sepsis secondary to E. coli UTI. EKG Interpretation EKG #1: Date/time of EK08/13/24 12:30 pm EKG interpretation: sinus rhythm, rate 87, right bundle branch block Lab Interpretation Labs: interpreted by ca Lab(s) interpretation(s): 4+ bacteria in urine, UTI Methamphetamine came back positive Sepsis secondary to UTI Imaging Radiology reports / interpretation(s): Procedure(s): XR chest 1V portable Accession Number(s): [id number] cc: Zackery Arteaga MD; Dorothy Lowe MD~ Examination: AP chest single view TECHNIQUE: Portable sitting AP chest single view Date and time: August 13, 2024 1232 hours Comparison February 27, 2024 INDICATIONS: Chest pain today. FINDINGS: Early bibasilar pneumonia Normal heart size Moderate osteopenia IMPRESSION: Early bibasilar pneumonia Dictated By: Zackery Arteaga MD Medication Administration(s) Medication Administration History Discontinued Medications Acetaminophen (Acetaminophen 500 Mg Tablet) 1,000 mg PO X1 ONE Stop: 08/13/24 12:09 Last Admin: 08/13/24 13:01 Dose: 1,000 mg Documented By: JONNY Sodium Chloride (Ns) 1,000 mls @ 999 mls/hr IV .Q1H1M ONE Stop: 08/13/24 13:07 Last Infusion: 08/13/24 15:00 Dose: Infused Documented By: Admin: 08/13/24 13:39 Dose: 999 mls/hr Documented By: JONNY Ceftriaxone Sodium/Dextrose (Rocephin/D5w 1gm Iv Premix) 1 gm in 50 mls @ 100 mls/hr IV X1 ONE Stop: 08/13/24 16:25 Last Admin: 08/13/24 16:39 Dose: 100 mls/hr Documented By: RADHA Consultations/Discussions re: Management Consult #1: Date/time: 08/13/24 3:59 pm Physician, specialty, service, details: Discussed test HPI, PMHx, lab, radiology results and/or management with resident Dr. Chou working with the hospitalist. Will admit for further evaluation and management. Accepts patient for admission. Diagnosis Differential diagnosis: UTI, dehydration, electrolyte imbalance Most likely dx, and/or detailed dx discussion: Sepsis secondary to UTI Methamphetamine abuse Dispositon Disposition: Admit
[2024-08-13] MEDS: ACETAMINOPHEN 500 MG TABLET 1000 MG PO (13:01)
[2024-08-13 13:37] LABS: Lactate (Lactic Acid) 1.9 mMol/L (0.4-2.0)
[2024-08-13 13:38] LABS: Basophils % (Auto) 0 % (0-2.5); Eosinophils % (Auto) 0 % (0-10); Hematocrit 36.5 % (41.0-53.0); Hemoglobin 11.6 g/dL (13.5-16.0); Immature Granulocytes % (Auto) 0 % (0-0); Immature Granulocytes Auto 0.04 Thou/mm3 (0.00-0.00); Lymphocytes # (Auto) 0.6 Thou/mm3 (1.0-4.8); Lymphocytes % (Auto) 7 % (10-50); Mean Corpuscular HGB Conc 31.8 g/dl (31.0-37.0); Mean Corpuscular Hemoglobin 23.2 pg (25.0-35.0); Mean Corpuscular Volume 73 fL (80-100); Monocytes # (Auto) 0.5 Thou/mm3 (0.0-0.8); Monocytes % (Auto) 6 % (0-12); Neutrophils % (Auto) 87 % (37-80); Nucleated Red Blood Cell % 0 /100 WBC (0); Platelet Count 214 Thou/mm3 (140-440); RDW Standard Deviation 46.4 fL (35.1-43.9); White Blood Count 9.2 Thou/mm3 (3.8-10.6)
[2024-08-13] MEDS: SODIUM CHLORIDE 0.9% 1000 ML 1,000 ML 999 ML IV ×2 (13:39→20:41)
[2024-08-13 13:56] LABS: B-Type Natriuretic Peptide < 20 pg/mL (0-100)
[2024-08-13 14:07] LABS: INR 1.1 (0.9-1.3); Partial Thromboplastin Time 29.9 Seconds (22.0-36.0); Prothrombin Time 12.4 Seconds (9.0-12.2)
[2024-08-13 14:08] LABS: Alanine Aminotransferase 14 U/L (10-49); Albumin, Serum 4.1 gm/dL (3.4-4.8); Albumin/Globulin Ratio 1.2 (1.2-2.2); Alcohol, Blood Medical < 3.0 mg/dL (0-10.0); Alkaline Phosphatase 127 U/L (46-116); Anion Gap 12 (7-16); Aspartate Amino Transferase 19 U/L (0-34); BUN/Creatinine Ratio 14 Ratio (12-20); Bilirubin,Total 1.2 mg/dL (0.3-1.2); Blood Urea Nitrogen 11 mg/dL (9-23); Calcium 8.8 mg/dL (8.3-10.6); Calcium (Corrected) 8.8 mg/dL (8.5-10.1); Carbon Dioxide 26.1 mMol/L (20.0-31.0); Chloride 97 mMol/L (98-107); Creatinine (Component) 0.8 mg/dL (0.6-1.3); Estimated Creatinine Clearance 95.7 mL/min (>60); Globulin 3.5 gm/dL (2.3-3.5); Glucose 110 mg/dL (74-106); Lipase 35 U/L (12-53); Osmolality,Calculated 270 (275-295); Potassium 2.8 mMol/L (3.4-5.1); Procalcitonin 1.19 ng/ml (0.0-0.49); Sodium 135 mMol/L (136-145); Total Protein 7.6 gm/dL (5.7-8.2); Troponin I < 0.020 ng/mL (0.0-0.045); eGFR > 60 See Note
[2024-08-13 14:59] LABS: Collection Type, Urine Clean Catch; Squamous Epithelial Cell,Urine 0 /hpf (0-5)
[2024-08-13 15:13] LABS: Bacteria,Urine 4+; Bilirubin,Urine Negative (Negative); Blood,Urine 1+ (Negative); Clarity,Urine Clear (Clear/Hazy); Color,Urine Yellow (Lt Yel-Yel); Glucose, Urine Negative (Negative); Hyaline Casts,Urine < 1 /hpf (0-1); Ketones,Urine Negative (Negative); Leukocyte Esterase,Urine Negative (Negative); Nitrite,Urine Positive (Negative); PH,Urine 6.5 (5.0-7.0); Protein,Urine 1+ (Neg - Trace); RBC,Urine 2 /hpf (0-3); Specific Gravity,Urine 1.021 (1.001-1.035); WBC,Urine 9 /hpf (0-5)
[2024-08-13 15:14] LABS: Amphetamine/Methamp Scrn,U Positive (Negative); Barbiturate Screen,Urine Negative (Negative); Benzodiazepines Screen,Urine Negative (Negative); Benzoylecgonine Screen, Ur Negative (Negative); Fentanyl Screen,Urine Negative (Negative); Opiate Screen,Urine Negative (Negative); THC Screen,Urine Positive (Negative)
[2024-08-13] MEDS: cefTRIAXone/D5w 1gm IV premix 1 GM/50 ML BAG IV (16:39)
--- NOTE | 2024-08-13 17:22 | PD.ADDHP ---
Addendum History & Physical Addendum Date of report being addended: 08/13/24 Narrative: Attending's attestation: I reviewed labs, imaging, EKG, home medications and prior available records. Face to face evaluation was performed by me. I have personally examined the patient and discussed assessment and plan with the IM team. I reviewed the resident note and agree with the plan with exceptions as below. 69-year-old male with history of hypertension, chronic pain, and polysubstance abuse, who presented with a chief complaint of altered mental status. Acute encephalopathy: Likely in setting of acute UTI versus dehydration versus drug intoxication. Management of the underlying conditions as below Acute UTI: Started the patient on IV ceftriaxone. Follow-up urine culture. Trend WBC Microcytic anemia: No evidence of acute bleed. Monitor CBC and monitor for bleeding Methamphetamine use/marijuana use: Rn Primary Care the patient regarding the importance of avoiding illicit drugs Hypokalemia: Replete electrolytes as needed and monitor CBC
[2024-08-13] MEDS: POTASSIUM CHLORIDE 10% 20 MEQ/15 ML UDC 40 MEQ PO (17:42)
[2024-08-13] MEDS: HYDROcodone/APAP 5/325 TABLET 1 TAB PO (17:42)
--- NOTE | 2024-08-13 17:53 | PD.RESHP ---
Documentation for date of: 08/13/24 HPI History of Present Illness Chief complaint: Altered mental status History of present illness: HPI: Patient seen with son at bedside Patient is a 69-year-old male past medical history of primary hypertension, stable closed skull fracture, iron deficiency anemia, polysubstance abuse, chronic back pain and cervical spine stenosis presenting today with altered mental status. According to patient's son at bedside at approximately 12:28 PM his mother found the patient lying on his couch confused and short of breath, she subsequently called the ambulance to bring him to the hospital. Upon my assessment patient was alert and oriented x 3 and complaining of generalized pain. When I inquired about what happens at his home he stated that he was okay. Denied any chest pain/pressure, palpitations, dizziness, syncope, sick contacts or recent travel. Of note from chart review patient appears to have been meth positive in the past and also on this admission. He also was discharged from [facility] on 03/06/2024 after being treated for an 80 coli UTI and close skull fracture with cervical spine stenosis. At the time his insurance denied him transfer for neurosurgical evaluation. ED course: BP 131/77, pulse 79, RR 13, temp 98.8 F, SpO2 95% on room air. Labs showed Hb 11.6, HCT 36.5, K2.8, glucose 110. Chest x-ray showed basilar consolidation EKG showed sinus rhythm, incomplete right bundle branch block, rate 87. Urinalysis showed 1+ protein, 1+ blood, +9 WBCs, nitrate positive In the ED patient received acetaminophen 1 g p.o. x 1, normal saline 1L IVF bolus, ceftriaxone 1 g IV x 1 and potassium 40 mEq p.o. x 1 Patient will be admitted to observation for treatment and management of acute toxic encephalopathy secondary to methamphetamine use and UTI. Review of Systems Review of Systems Narrative Review of Systems: GENERAL: Denies fever/chills or diaphoresis. HEENT: Denies headaches or visual changes. Denies discharge. Neuro: Denies unusual weakness or difficulty speaking. CARDIO: Denies chest pain or palpitations. PULM: Denies SOB, coughing or wheezing. GI: Denies abdominal pain, N/V/C/D. Reports having BMs. URO: Denies burning/itching/pain/urinary changes. MSK/EXT/SKIN: endorses generalized pain PSYCH: Cooperative, pleasant mood & affect. The rest of the review of systems is otherwise negative. 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 4 kids Tobacco use: Denies ETHO use: Denies Illicit drug use: Endorses smoking marijuana daily Social History Note: Lives alone. Ambulates independently, however needs a walker when walking long distances Family History: Denies any significant history Exam Vital Signs Temp Pulse Resp BP Pulse Ox O2 Del Method 98.8 F 79 13 131/77 H 95 Room Air 08/13/24 15:57 08/13/24 15:33 08/13/24 15:33 08/13/24 15:33 08/13/24 15:33 08/13/24 15:33 Narrative Exam Constitutional Alert, oriented x 3 and in mild distress. Elderly male HEENT Vision grossly intact. Patent nares. Trachea midline Respiratory Chest normal on inspection and clear auscultation bilaterally Cardiovascular S1 and S2 audible, RRR. No murmurs carotid bruit. No gross JVD. Abdominal Soft and non tender to palpation in all quadrants. BS + Genitourinary No bladder tenderness, no flank pain. Normal to palpation Musculoskeletal Extremities tone within normal limits. No LE edema. Neurological CN II - XII grossly intact. Extremity motor and sensation grossly intact. Gait not assessed Skin Warm, dry and intact. No apparent lesions. Psychiatric Patient has good affect, is cooperative Results: Labs 08/14/24 05:03 08/14/24 05:03 Labs: Short CBC 08/13/24 Range/Units 13:23 WBC 9.2 (3.8-10.6) Thou/mm3 Hgb 11.6 L (13.5-16.0) g/dL Hct 36.5 L (41.0-53.0) % Plt Count 214 (140-440) Thou/mm3 BMP 08/13/24 13:23 Sodium 135 L Potassium 2.8 L Chloride 97 L Carbon Dioxide 26.1 BUN 11 Creatinine 0.8 Glucose 110 H Calcium 8.8 Cardiac Enzymes 08/13/24 Range/Units 13:23 Troponin I < 0.020 (0.0-0.045) ng/mL Liver Function 08/13/24 Range/Units 13:23 Total Bilirubin 1.2 (0.3-1.2) mg/dL AST 19 (0-34) U/L ALT 14 (10-49) U/L Alkaline Phosphatase 127 H (46-116) U/L Albumin 4.1 (3.4-4.8) gm/dL Urine 08/13/24 Range/Units 14:46 Urine Color Yellow (Lt Yel-Yel) Urine Clarity Clear (Clear/Hazy) Urine pH 6.5 (5.0-7.0) Ur Specific [place] 1.021 (1.001-1.035) Urine Protein 1+ A (Neg - Trace) Urine Glucose (UA) Negative (Negative) Quality Measures Quality Measures sepsis Current suspected stage: ruled out Possible source: genitourinary (UTI) Blood cultures ordered: yes Antibiotic ordered: Yes Advance care planning discussed with:: patient Medications Home Medications and Allergies Home Medications ?Medication ?Instructions ?Recorded ?Confirmed ?Type No Known Home Medications 08/13/24 08/13/24 History Allergies Allergy/AdvReac Type Severity Reaction Status Date / Time No Known Allergies Allergy Verified 02/27/24 09:34 Visit Medications Discontinued Medications Acetaminophen (Acetaminophen 500 Mg Tablet) 1,000 mg PO X1 ONE Stop: 08/13/24 12:09 Last Admin: 08/13/24 13:01 Dose: 1,000 mg Hydrocodone Bitart/Acetaminophen (Hydrocodone/Apap 5/325 Tablet) 1 tab PO X1 ONE Stop: 08/13/24 17:17 Last Admin: 08/13/24 17:42 Dose: 1 tab Sodium Chloride (Ns) 1,000 mls @ 999 mls/hr IV .Q1H1M ONE Stop: 08/13/24 13:07 Last Infusion: 08/13/24 15:00 Dose: Infused Ceftriaxone Sodium/Dextrose (Rocephin/D5w 1gm Iv Premix) 1 gm in 50 mls @ 100 mls/hr IV X1 ONE Stop: 08/13/24 16:25 Last Infusion: 08/13/24 17:37 Dose: Infused Potassium Chloride (Potassium Chloride 10% 20 Meq/15 Ml Udc) 40 meq PO X1 ONE Stop: 08/13/24 17:17 Last Admin: 08/13/24 17:42 Dose: 40 meq Assessment & Plan Plan Patient is a 69-year-old male past medical history of primary hypertension, stable closed skull fracture, iron deficiency anemia, polysubstance abuse, chronic back pain and cervical spine stenosis presenting today with altered mental status. Patient will be admitted to observation for treatment and management of acute toxic encephalopathy secondary to methamphetamine use and UTI. Altered mental status secondary to acute encephalopathy?resolving UTI Patient's presented altered after being found confused on his couch at home Upon exam patient was alert and oriented x 3 Urinalysis showed 1+ protein, 1+ blood, +9 WBCs, nitrate positive Plan: ? Pending urine culture ? Started on ceftriaxone 1 g IV daily [] 08/13? Hypokalemia K2.8 Plan: ? KCl 40 mEq p.o. x 1 ? KCl 20 mEq IV x 1 ? Repeat BMP tonight Iron deficiency anemia Patient has history of iron deficiency anemia from chart review Plan: -Will resume oral iron from tomorrow Chronic back pain Cervical spine stenosis History of stable, closed skull fracture Patient has a history of stable closed skull fracture with cervical spine stenosis. Home medication appears to be gabapentin Plan: ? Resume home medication gabapentin 300 Mg p.o. twice daily History of methamphetamine abuse History of THC use Patient denies methamphetamine use but his U-Tox is positive. Plan: ? CIWA protocol Health maintenance: Disposition: IV antibiotics. Pending urine culture and repeat BMP Diet: Regular Lines: pIVs GI Prophylaxis: None Thrombo Prophylaxis: Heparin Code status: DNR Plan of care discussed with Attending Dr. Ubaldo Chou MD PGY 1 Disclaimer: This note was dictated by speech recognition. Minor errors in hospital pharmacist may be present due to voice recognition software. Attending Provider Attestation/Addendum I reviewed labs, imaging, EKG, home medications and prior available records. Face to face evaluation was performed by me. I have personally examined the patient and discussed assessment and plan with the IM team. I reviewed the resident note and agree with the plan with exceptions as below. 69-year-old male with history of hypertension, chronic pain, and polysubstance abuse, who presented with a chief complaint of altered mental status. Acute encephalopathy: Likely in setting of acute UTI versus dehydration versus drug intoxication. Management of the underlying conditions as below Acute UTI: Started the patient on IV ceftriaxone. Follow-up urine culture. Trend WBC Microcytic anemia: No evidence of acute bleed. 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
--- NOTE | 2024-08-13 19:30 | PC.NURSE ---
Auto Polisher assumes care of patient, pt is A/O x 3 with c/o generalized bodyaches, pt rates pain 10/10 at this time, no acute distess reported other than body aches.
[2024-08-13] MEDS: THIAMINE INJ 100 MG/ML VIAL 2 ML IV (20:20)
[2024-08-13] MEDS: POTASSIUM CHL 10 mEq IVPB 10 MEQ/100 ML BAG 100 MEQ IV ×2 (20:24→21:33)
[2024-08-13] MEDS: ACETAMINOPHEN 325 MG TABLET 650 MG PO (20:33)
[2024-08-13] MEDS: GABAPENTIN 300 MG CAPSULE PO (22:59)
[2024-08-13] MEDS: HEPARIN SOD INJ 5000 UNIT/ML VIAL SC (22:59)
[2024-08-13] MEDS: FOLIC ACID 1 MG TABLET PO (22:59)
[2024-08-13 23:35] LABS: Anion Gap 9 (7-16); BUN/Creatinine Ratio 13 Ratio (12-20); Blood Urea Nitrogen 8 mg/dL (9-23); Calcium 7.9 mg/dL (8.3-10.6); Chloride 104 mMol/L (98-107); Creatinine (Component) 0.6 mg/dL (0.6-1.3); Glucose 109 mg/dL (74-106); Osmolality,Calculated 273 (275-295); Potassium 3.1 mMol/L (3.4-5.1); Sodium 137 mMol/L (136-145); eGFR > 60 See Note
[2024-08-14] VITALS (8 sets, daily range): BP systolic 136–188; BP diastolic 62–90; PULSE 70–104; RESP 15–99; TEMP 36.4–37.6; O2SAT 9–99
[2024-08-14 05:37] LABS: Basophils % (Auto) 0 % (0-2.5); Eosinophils % (Auto) 0 % (0-10); Hematocrit 34.8 % (41.0-53.0); Hemoglobin 10.9 g/dL (13.5-16.0); Immature Granulocytes % (Auto) 1 % (0-0); Immature Granulocytes Auto 0.05 Thou/mm3 (0.00-0.00); Lymphocytes # (Auto) 0.7 Thou/mm3 (1.0-4.8); Lymphocytes % (Auto) 7 % (10-50); Mean Corpuscular HGB Conc 31.3 g/dl (31.0-37.0); Mean Corpuscular Hemoglobin 23.3 pg (25.0-35.0); Mean Corpuscular Volume 74 fL (80-100); Monocytes # (Auto) 0.9 Thou/mm3 (0.0-0.8); Monocytes % (Auto) 9 % (0-12); Neutrophils # (Auto) 7.7 Thou/mm3 (1.8-7.7); Neutrophils % (Auto) 82 % (37-80); Nucleated Red Blood Cell % 0 /100 WBC (0); Platelet Count 140 Thou/mm3 (140-440); RDW Standard Deviation 47.1 fL (35.1-43.9); Red Blood Count 4.68 Miln/mm3 (4.50-5.90); White Blood Count 9.3 Thou/mm3 (3.8-10.6)
[2024-08-14 05:41] LABS: Glucose Estimated Average 117 mg/dL (80-131); Hemoglobin A1C 5.7 % Hgb (4.8-6.0)
[2024-08-14 06:00] LABS: Alanine Aminotransferase 10 U/L (10-49); Albumin, Serum 3.7 gm/dL (3.4-4.8); Albumin/Globulin Ratio 1.3 (1.2-2.2); Alkaline Phosphatase 115 U/L (46-116); Anion Gap 11 (7-16); Aspartate Amino Transferase 18 U/L (0-34); BUN/Creatinine Ratio 9 Ratio (12-20); Blood Urea Nitrogen 6 mg/dL (9-23); Calcium 7.8 mg/dL (8.3-10.6); Carbon Dioxide 25.6 mMol/L (20.0-31.0); Cardiac Risk Estimate 2.8 RATIO (4.0-6.7); Chloride 104 mMol/L (98-107); Cholesterol 84 mg/dL (132-200); Creatinine (Component) 0.7 mg/dL (0.6-1.3); Estimated Creatinine Clearance 116.6 mL/min (>60); Globulin 2.8 gm/dL (2.3-3.5); Glucose 106 mg/dL (74-106); HDL Cholesterol 30 mg/dL (40-60); LDL Cholesterol,Calculated 37 mg/dL (0-130); Magnesium 1.8 mg/dL (1.6-2.6); Osmolality,Calculated 278 (275-295); Potassium 3.4 mMol/L (3.4-5.1); Sodium 141 mMol/L (136-145); Thyroid Stimulating Hormone 0.37 uIU/mL (0.55-4.78); Total Protein 6.5 gm/dL (5.7-8.2); Triglycerides 87 mg/dL (30-150); eGFR > 60 See Note
[2024-08-14] MEDS: GABAPENTIN 300 MG CAPSULE PO ×2 (08:14→21:20)
[2024-08-14] MEDS: FOLIC ACID 1 MG TABLET PO ×2 (08:14→20:23)
[2024-08-14] MEDS: HEPARIN SOD INJ 5000 UNIT/ML VIAL SC ×2 (08:14→20:23)
[2024-08-14] MEDS: cefTRIAXone/D5w 1gm IV premix 1 GM/50 ML BAG IV (08:15)
--- NOTE | 2024-08-14 09:14 | PC.SS ---
Follow up note: Blood cultures are positive. Pt is on IV antibiotic. Consult PT.
[2024-08-14] MEDS: POT PHOS 15 mMol in NS 250 ML 15 MMOL/250 ML BAG 62.5 MMOL IV (09:36)
[2024-08-14] MEDS: cefTRIAXone 2 GM in SODIUM CHLORIDE 0.9% (Popper) 50 ML IV (09:37)
[2024-08-14] MEDS: CALCIUM CARBONATE 600 MG TABLET PO (09:38)
[2024-08-14] MEDS: KETOROLAC INJ 30 MG/ML VIAL 15 MG IVP ×2 (12:36→19:36)
--- NOTE | 2024-08-14 14:09 | PC.PT ---
Patient is safe to ambulate to the bathroom and in the halls with 1 staff assist and the IV pole. RN made aware.
--- NOTE | 2024-08-14 15:45 | ESPR_ITS ---
<Statement entered by Teresita Hernandez MD - 08/14/24 22:10> Patient was seen and examined at bedside. I agree on the assessment and plan on this note. - Patient's plan and care discussed with my attending, Dr. Ubaldo Hernandez MD Internal Medicine PGY-2 Documentation for date of: 08/14/24 Subjective Subjective Interval history: Patient seen and examined at bedside this morning. Adequate urine output and ambulated with physical therapist. Patient complains of generalized body pain and malaise. BP 142/62 and pulse 82. Both urine and blood cultures grew GNR preliminary. Phosphorus 2, corrected calcium 8, K3.4 and PLT decreased to 140. Patient repleted with potassium phosphate 15 mmol IV x 1, calcium carbonate 600 Mg p.o. x 1. Increased gabapentin to 300 Mg p.o. 3 times daily and increase ceftriaxone to 2 g IV daily for GNR bacteremia. Exam Vital Signs Temp Pulse Resp BP Pulse Ox O2 Del Method O2 Flow Rate 97.6 F 77 16 188/90 H 99 Room Air 2 08/14/24 12:00 08/14/24 15:39 08/14/24 15:39 08/14/24 12:00 08/14/24 15:39 08/14/24 12:00 08/14/24 08:00 Narrative Exam Constitutional Alert, oriented x 3 and in mild distress. Elderly male HEENT Vision grossly intact. Patent nares. Trachea midline Respiratory Chest normal on inspection and clear auscultation bilaterally Cardiovascular S1 and S2 audible, RRR. No murmurs carotid bruit. No gross JVD. Abdominal Soft and non tender to palpation in all quadrants. BS + Genitourinary No bladder tenderness, no flank pain. Normal to palpation Musculoskeletal Extremities tone within normal limits. No LE edema. Neurological CN II - XII grossly intact. Extremity motor and sensation grossly intact. Gait not assessed Skin Warm, dry and intact. No apparent lesions. Psychiatric Patient has good affect, is cooperative Objective Labs 08/15/24 05:31 08/15/24 05:31 Labs: Laboratory Results - last 24 hr 08/13/24 08/14/24 23:07 05:03 WBC 9.3 RBC 4.68 Hgb 10.9 L Hct 34.8 L MCV 74 L MCH 23.3 L MCHC 31.3 RDW Std Deviation 47.1 H Plt Count 140 D Neut % (Auto) 82 H Lymph % (Auto) 7 L [place] % (Auto) 9 Eos % (Auto) 0 Baso % (Auto) 0 Neut # (Auto) 7.7 Lymph # (Auto) 0.7 L [place] # (Auto) 0.9 H Eos # (Auto) 0.0 Baso # (Auto) 0.0 Immature Gran # (Auto) 0.05 H Absolute Nucleated RBC 0.00 Immature Gran % 1 H Nucleated RBC % 0 Sodium 137 141 Potassium 3.1 L 3.4 Chloride 104 104 Carbon Dioxide 24.0 25.6 Anion Gap 9 11 BUN 8 L 6 L Creatinine 0.6 0.7 Estim Creat Clear Calc 136.0 116.6 eGFR > 60 > 60 BUN/Creatinine Ratio 13 9 L Glucose [address] Glu mg/dL 117 Hemoglobin A1c 5.7 Calculated Osmolality 273 L 278 Calcium 7.9 L 7.8 L Corrected Calcium 8.0 L Phosphorus 2.0 L Magnesium 1.8 Total Bilirubin 1.0 AST 18 ALT 10 Alkaline Phosphatase 115 Total Protein 6.5 Albumin 3.7 Globulin 2.8 Albumin/Globulin Ratio 1.3 Triglycerides 87 Cholesterol 84 L LDL Cholesterol, Calc 37 HDL Cholesterol 30 L Cholesterol/HDL Ratio 2.8 L TSH 0.37 L Quality Measures Quality Measures VTE prophylaxis Advance care planning discussed with:: patient Assessment & Plan Assessment Current Active Medications: Generic Name Dose Route Start Last Admin Trade Name Freq PRN Reason Stop Dose Admin Acetaminophen 650 mg 08/13/24 17:54 08/13/24 20:33 Acetaminophen 325 Mg Tablet PO 09/12/24 17:53 650 mg Q6H PRN Administration Fever >100.3 or Pain 1-3 Albuterol/Ipratropium 3 ml 08/13/24 17:54 Albuterol/Ipratropium (Duoneb) Rt Ivon 3 Ml Nebu INH 09/12/24 17:53 Q4HR PRN SHORTNESS OF BREATH OR WHEEZE Folic Acid 1 mg 08/13/24 21:00 08/14/24 08:14 Folic Acid 1 Mg Tablet PO 08/18/24 20:59 1 mg BID MIGUELINA Administration Gabapentin 300 mg 08/14/24 14:00 08/14/24 14:53 Gabapentin 300 Mg Capsule PO 09/13/24 13:59 Not Given TID MIGUELINA Heparin Sodium (Porcine) 5,000 unit 08/13/24 21:00 08/14/24 08:14 Heparin Sod Inj 5000 Unit/Ml Vial SC 08/27/24 20:59 5,000 unit BID MIGUELINA Administration Ceftriaxone Sodium/Dextrose 2 gm in 50 mls @ 100 mls/hr 08/15/24 09:00 Rocephin/D5w 2gm IV 08/21/24 08:17 QDAY MIGUELINA Ketorolac Tromethamine 15 mg 08/13/24 19:48 08/14/24 12:36 Ketorolac Inj 30 Mg/Ml Vial IVP 08/18/24 19:47 15 mg Q6HR PRN Administration Pain 4-10 Lorazepam 0.5 mg 08/13/24 18:43 Lorazepam 0.5 Mg Tablet PO 08/18/24 18:42 Q4HR PRN CIWA Score 2-6 Lorazepam 1 mg 08/13/24 18:43 Lorazepam 2 Mg/Ml Vial IV X1 PRN Breakthrough Agitation Lorazepam 1 mg 08/13/24 18:43 Lorazepam 0.5 Mg Tablet PO 08/18/24 18:42 Q4HR PRN CIWA SCORE 7-11 Lorazepam 2 mg 08/13/24 18:43 Lorazepam 0.5 Mg Tablet PO 08/18/24 18:42 Q4HR PRN CIWA SCORE 12-15 Lorazepam 1 mg 08/13/24 18:43 Lorazepam 2 Mg/Ml Vial IV 08/18/24 18:42 Q2HR PRN CIWA SCORE 16-19 Lorazepam 2 mg 08/13/24 18:43 Lorazepam 2 Mg/Ml Vial IV 08/18/24 18:42 Q2HR PRN CIWA SCORE 20-25 Ondansetron HCl 4 mg 08/13/24 17:59 Ondansetron Inj 2 Mg/Ml Inj 2 Ml IVP 09/12/24 17:58 Q6H PRN NAUSEA OR VOMITING Protocol Plan Patient is a 69-year-old male past medical history of primary hypertension, stable closed skull fracture, iron deficiency anemia, polysubstance abuse, chronic back pain and cervical spine stenosis presenting today with altered mental status. Patient will be admitted to observation for treatment and management of acute toxic encephalopathy secondary to methamphetamine use and UTI. Altered mental status secondary to acute encephalopathy?resolving UTI GNR bacteremia Patient's presented altered after being found confused on his couch at home Upon exam patient was alert and oriented x 3 Urinalysis showed 1+ protein, 1+ blood, +9 WBCs, nitrate positive Both urine and blood cultures grew GNR preliminary. Phosphorus 2, corrected calcium 8, K3.4 and PLT decreased to 140. Patient repleted with potassium phosphate 15 mmol IV x 1, calcium carbonate 600 Mg p.o. x 1. Increased gabapentin to 300 Mg p.o. 3 times daily and increase ceftriaxone to 2 g IV daily for GNR bacteremia. Plan: - Pending final results of blood and urine cultures ? Increased ceftriaxone to 2 g IV daily [08/14- Iron deficiency anemia Patient has history of iron deficiency anemia from chart review Plan: -Will resume oral iron once acute infection is adequately treated Chronic back pain Cervical spine stenosis History of stable, closed skull fracture Patient has a history of stable closed skull fracture with cervical spine stenosis. Home medication appears to be gabapentin Plan: ? Increased gabapentin to 300 Mg p.o. 3 times daily History of methamphetamine abuse History of THC use Patient denies methamphetamine use but his U-Tox is positive. Plan: ? CIWA protocol Hypokalemia?resolved K2.8 3.4 ---> 3.4 Health maintenance: Disposition: IV antibiotics. Pending speciation of urine and blood cultures. Diet: Regular Lines: pIVs GI Prophylaxis: None Thrombo Prophylaxis: Heparin Code status: DNR Plan of care discussed with Attending Dr. Conner and PGY2 Dr. Mary Chou MD PGY 1 Disclaimer: This note was dictated by speech recognition. Minor errors in automatic hemmer may be present due to voice recognition software. Attending Provider Attestation/Addendum I reviewed labs, imaging, EKG, home medications and prior available records. Face to face evaluation was performed by me. I have personally examined the patient and discussed assessment and plan with the IM team. I reviewed the resident note and agree with the plan with exceptions as below. 69-year-old male with history of hypertension, chronic pain, and polysubstance abuse, who presented with a chief complaint of altered mental status. Acute encephalopathy: Likely in setting of acute UTI versus dehydration versus drug intoxication. Management of the underlying conditions as below gram-negative bacteremia: Follow-up identification Acute UTI: Started the patient on IV ceftriaxone. Follow-up urine culture: Showed gram-negative rods. Trend WBC Lower extremity weakness: Concern for spine disease however he worked with physical therapy and was able to walk. Refused SNF Microcytic anemia: No evidence of acute bleed. 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
[2024-08-14] MEDS: LORazepam 0.5 MG TABLET PO (20:23)
[2024-08-15] VITALS (7 sets, daily range): BP systolic 118–139; BP diastolic 67–81; PULSE 57–77; RESP 16–99; TEMP 36.2–36.6; O2SAT 92–99
[2024-08-15] MEDS: KETOROLAC INJ 30 MG/ML VIAL 15 MG IVP (02:03)
[2024-08-15] MEDS: GABAPENTIN 300 MG CAPSULE PO ×2 (05:01→13:15)
[2024-08-15] MEDS: ACETAMINOPHEN 325 MG TABLET 650 MG PO (05:41)
[2024-08-15 06:05] LABS: Basophils % (Auto) 0 % (0-2.5); Eosinophils # (Auto) 0.1 Thou/mm3 (0.0-0.5); Eosinophils % (Auto) 1 % (0-10); Hemoglobin 11.2 g/dL (13.5-16.0); Immature Granulocytes % (Auto) 1 % (0-0); Immature Granulocytes Auto 0.07 Thou/mm3 (0.00-0.00); Lymphocytes # (Auto) 1.5 Thou/mm3 (1.0-4.8); Lymphocytes % (Auto) 14 % (10-50); Mean Corpuscular HGB Conc 31.1 g/dl (31.0-37.0); Mean Corpuscular Hemoglobin 23.2 pg (25.0-35.0); Mean Corpuscular Volume 75 fL (80-100); Monocytes # (Auto) 1.4 Thou/mm3 (0.0-0.8); Monocytes % (Auto) 13 % (0-12); Neutrophils # (Auto) 7.6 Thou/mm3 (1.8-7.7); Neutrophils % (Auto) 71 % (37-80); Nucleated Red Blood Cell % 0 /100 WBC (0); Platelet Count 174 Thou/mm3 (140-440); RDW Standard Deviation 47.4 fL (35.1-43.9); Red Blood Count 4.83 Miln/mm3 (4.50-5.90); White Blood Count 10.8 Thou/mm3 (3.8-10.6)
[2024-08-15 06:13] LABS: Alanine Aminotransferase 10 U/L (10-49); Albumin, Serum 3.6 gm/dL (3.4-4.8); Albumin/Globulin Ratio 1.3 (1.2-2.2); Alkaline Phosphatase 105 U/L (46-116); Anion Gap 11 (7-16); Aspartate Amino Transferase 16 U/L (0-34); BUN/Creatinine Ratio 8 Ratio (12-20); Bilirubin,Total 0.5 mg/dL (0.3-1.2); Blood Urea Nitrogen 5 mg/dL (9-23); Calcium 7.8 mg/dL (8.3-10.6); Calcium (Corrected) 8.1 mg/dL (8.5-10.1); Carbon Dioxide 26.5 mMol/L (20.0-31.0); Chloride 103 mMol/L (98-107); Creatinine (Component) 0.6 mg/dL (0.6-1.3); Globulin 2.8 gm/dL (2.3-3.5); Glucose 114 mg/dL (74-106); Magnesium 1.9 mg/dL (1.6-2.6); Osmolality,Calculated 277 (275-295); Phosphorous 2.7 mg/dL (2.4-5.1); Potassium 3.3 mMol/L (3.4-5.1); Sodium 140 mMol/L (136-145); Total Protein 6.4 gm/dL (5.7-8.2); eGFR > 60 See Note
--- NOTE | 2024-08-15 09:05 | PC.SS ---
Late note 08-14-24: SS met with patient regarding his d/c plan. Pt is alert/oriented. Pt was admitted for AMS Secondary To Toxic Encephalopathy. Pt confirmed demographic and contact information is correct on facesheet. Pt resides alone. Pt ambulates independently at times using a 4 wheel with seat, rollator walker. Pt states he is ok with all ADLs. Pt named his son, Campos Presley, phone# [phone] medical decision maker if he is unable. SS provided verbal d/c options for home or SNF. Pt kept refusing SNF. Patient?s choice is to return home upon d/c. Pt states his son will help care for him at home. Pt requested to have his sister, Krysta Hernandez and ex , Pam Presley removed off his contact information (facesheet). Pt requested to add his son as his only medical decision maker. Pt is requesting [facility]SS. Pt is aware Medical is required for IHSS. Pt states he does not have PCP. SS provided verbal choices for PCP. Patient's choice is to follow up with [facility] at their clinic. D/C plan: Return home with HH Next of Kin: Campos Presley, son, phone# [phone] PCP: Establish at [facility] Address: Correct on facesheet
[2024-08-15] MEDS: PIPER/TAZO INJ 4.5 GM in SODIUM CHLORIDE 0.9% (POP) 100 ML IV ×2 (09:06→13:15)
[2024-08-15] MEDS: FOLIC ACID 1 MG TABLET PO (09:06)
[2024-08-15] MEDS: HEPARIN SOD INJ 5000 UNIT/ML VIAL SC (09:07)
[2024-08-15] MEDS: POTASSIUM CHLORIDE 10% 20 MEQ/15 ML UDC 40 MEQ PO (09:19)
--- NOTE | 2024-08-15 09:26 | PC.SS ---
SS called Luna from patient registration to have patient's facesheet updated (add his son, Campos Bassett and remove Pam Presley and Krysta Hernandez, per patient's request).
--- NOTE | 2024-08-15 10:38 | PD.RESDS ---
Planned Discharge Date 08/15/24 DS: Providers Provider Date of admission: 08/14/24 13:26 Primary care physician: Physician No Primary/Family Admitting Provider: Ozzie Conner MD Attending Provider on Admission: Ozzie Conner MD Consults: 08/14/24 08:33 Referral Physical Therapy Routine Comment: Physician Instructions: Attending Provider on DC: Ozzie Conner MD Discharging Provider: Quentin Chou MD DS: Diagnosis Problem List Completed Was Problem List Reviewed/Reconciled?: Yes Hospital Course Hospital Course Hospital course: Patient is a 69-year-old male past medical history of primary hypertension, stable closed skull fracture, iron deficiency anemia, polysubstance abuse, chronic back pain and cervical spine stenosis presenting today with altered mental status. Patient will be admitted to observation for treatment and management of acute toxic encephalopathy secondary to methamphetamine use and UTI. Patient was initially treated with ceftriaxone 1 g IV daily empirically which was increased to ceftriaxone 2 g IV daily after blood and urine cultures grew GNR. After this patient's mentation improved to baseline and he also ambulated independently with physical therapy. With regards to his chronic back pain patient was started on gabapentin 300 mg p.o. twice daily which gave him great relief. Patient was extensively counseled about smoking cessation, also asked about methamphetamine use which he vehemently denied. At this time all patient's labs are returning to his baseline and patient is clinically stable and fit for discharge to home with home health. Discharge diagnoses: 1. Altered mental status secondary to acute encephalopathy?resolved 2. GNR UTI 3. GNR bacteremia 4. Iron deficiency anemia 5. Chronic back pain 6. Cervical spine stenosis 7. History of stable, closed skull fracture 8. History of methamphetamine abuse 9. History of THC use 10. Hypokalemia?resolved Discharge plan: - You have been started on a medication gabapentin for your neck pain. Take one tablet twice a day. - You have been started on an antibiotic, Levofloxacin for your blood and urine infection. Take one tablet once a day for the next 13 days to complete the course. - Follow up with your primary care doctor for a referral to Gastroenterology to investigate the cause of your anemia. - Work with physical therapy at home. - Follow up with your primary care physician within 1 week of discharge. If you do not have a primary care physician, please follow up with the [facility] Residents clinic ([phone]) ? If you experience any new, worsening or persistent symptoms either call your primary doctor, or dial 911 or present to the emergency department. We are grateful to be able to participate in Mr. Presley's care. We wish him the best. Plan of care discussed with Attending Dr. Ubaldo Chou MD PGY 1 Disclaimer: This note was dictated by speech recognition. Minor errors in suit maker may be present due to voice recognition software. Time spent discussing smoking cessation with patient: more than 10 minutes Time Spent with Patient Time attestation: Total time spent providing and/or coordinating discharge services: Time spent: Greater than 30 minutes (41) Home Health Home Health Referral Orders: 08/14/24 15:06 Home Health Referral Routine Reason For Exam: home PT, refused SNF Home-Bound The patient must either because of illness or injury, need the aid of supportive devices such as crutches, canes, wheelchairs, and walkers; the use of special transportation; or the assistance of another person in order to leave their place of residence; OR have a condition such that leaving his or her home is medically contraindicated. In addition, the patient also meets the following criteria: patient is normally unable to leave the home and leaving home requires considerable taxing effort. Addendum to Home Health Certification Practitioner's Certification: I certify that the patient has been under my care in the hospital and the care of attending physician (see below). We had a yugl-ig-ecps encounter on (see date below). My clinical findings indicate that the patient is home bound per the above criteria and the Home Health Services noted in these orders are medically necessary. The primary reason for the ihsg-bl-gqis encounter is related to the fact that the patient requires home health services. 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 Wound Care: No IV Therapy: No RN Safety Evaluation: Yes RN to evaluate and create a plan of care that will produce positive outcomes. Palliative Treatment: No Palliative treatment and evaluate the need for hospice. Home Health Aide - Personal Care: Yes Home Health Aide to assist with any ADL's. Exam Vital Signs Temp Pulse Resp BP Pulse Ox O2 Del Method O2 Flow Rate 98 F 73 18 118/67 93 L Room Air 1.5 08/15/24 08:00 08/15/24 08:00 08/15/24 08:00 08/15/24 08:00 08/15/24 08:00 08/15/24 08:00 08/14/24 16:00 Narrative Exam Constitutional Alert, oriented x 3 and comfortable. Elderly male HEENT Vision grossly intact. Patent nares. Trachea midline Respiratory Chest normal on inspection and clear auscultation bilaterally Cardiovascular S1 and S2 audible, RRR. No murmurs carotid bruit. No gross JVD. Abdominal Soft and non tender to palpation in all quadrants. BS + Genitourinary No bladder tenderness, no flank pain. Normal to palpation Musculoskeletal Extremities tone within normal limits. No LE edema. Neurological CN II - XII grossly intact. Extremity motor and sensation grossly intact. Gait not assessed Skin Warm, dry and intact. No apparent lesions. Psychiatric Patient has good affect, is cooperative Discharge Plan Plan Patient Disposition: Home w/HOME HEALTH Patient condition on transfer: Stable and Benefits outweigh risks Care Plan Goals: - You have been started on a medication gabapentin for your neck pain. Take one tablet twice a day. - You have been started on an antibiotic, Levofloxacin for your blood and urine infection. Take one tablet once a day for the next 13 days to complete the course. - Follow up with your primary care doctor for a referral to Gastroenterology to investigate the cause of your anemia. - Work with physical therapy at home. - Follow up with your primary care physician within 1 week of discharge. If you do not have a primary care physician, please follow up with the [facility] Residents clinic ([phone]) ? If you experience any new, worsening or persistent symptoms either call your primary doctor, or dial 911 or present to the emergency department. Prescriptions/Referrals Prescriptions/Med Rec: New gabapentin 300 mg capsule 300 mg PO BID 30 Days Qty: 60 0RF levofloxacin 750 mg tablet 750 mg PO QDAY 13 Days Qty: 13 0RF Referrals: [facility] [Outside] No Primary/Family,Physician [Primary Care Provider] - Patient/Caregiver Discharge Instructions Discharge Activity: as per physical therapy Other Discharge Activity Instructions:: Appointment at [facility] with Dr. Teresita Hernandez for 10am August 20, 2024. Education Materials: Urinary Tract Infections in Men, Understanding Urinary Tract ..., Addiction: Getting Help, Addiction: Your Treatment Options, Cervical Disk Problems, ED Bacteremia, Suspected (Adult) Print Language: Kyrgyz Stand Alone Forms: Bobbi Award Info., Patient Portal Info Letter Discharge Order Discharge Orders: Discharge (Routine); Ordered 08/15/24 Ordered By: Quentin Chou Quality Discharge Quality Measures VTE prophylaxis Attestestation Attestation I reviewed labs, imaging, EKG, home medications and prior available records. Face to face evaluation was performed by me. I have personally examined the patient and discussed assessment and plan with the IM team. I reviewed the resident note and agree with the plan with exceptions as below. 69-year-old male with history of hypertension, chronic pain, and polysubstance abuse, who presented with a chief complaint of altered mental status. Acute encephalopathy: Resolved. Likely in setting of acute UTI versus dehydration versus drug intoxication. Management of the underlying conditions as below gram-negative bacteremia: Identified as ESBL E. coli Acute ESBL E. coli UTI: Will discharge the patient on p.o. levofloxacin Lower extremity weakness: Concern for spine disease however he worked with physical therapy and was able to walk. Refused SNF. Ordered home health Microcytic anemia: No evidence of acute bleed. 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 More than 50% of the time was spent on patient education and coordination of care.
[2024-08-15] MEDS: CALCIUM CARBONATE 600 MG TABLET PO (11:09)
[2024-08-15] MEDS: POTASSIUM CHL 10 mEq IVPB 10 MEQ/100 ML BAG 100 MEQ IV (11:10)
--- NOTE | 2024-08-15 11:51 | PC.SS ---
SS has faxed [facility] referral. Pt is aware. SS has met with and provided him with d/c options to SNF or home. Pt refused SNF and Dr. Conner was present during that time. Pt states he does not have PCP. SS provided choices for PCP to community clinics in [facility] or resident clinic. Pt is requesting to follow up with resident clinic. SS has made pt an appointment at [facility] with Dr. Teresita Hernandez for 10am August 20, 2024. SS provided pt with [facility] List with appointment time and date. SS offered to call his son and inform him of appointment and pt refused. Pt is aware he is possible d/c for today and family will provide transport.
[2024-08-15] MEDS: POTASSIUM CHL 10 mEq IVPB 10 MEQ/100 ML BAG 50 MEQ IV (12:52)
--- NOTE | 2024-08-15 15:43 | PC.SS ---
Addendum entered by Deja Banks 08/15/24 16:18: SS left son voicemail informing him pt was d/c home by taxi. Addendum entered by Deja Banks 08/15/24 15:58: SS spoke to patient's sonCampos phone# [phone] who states he can provide transportation after 5pm if taxi is unavailable. Son is aware taxi has been arranged. Original Note: SS met with pt who is now requesting transportation. Pt is aware SS offered setup transportation earlier and he declined. SS attempted to contact his son, Campos but was unsuccessful (pt is aware). SS spoke to Chavez from [facility] who explained patient's health insurance is no longer active for transportation. SS setup transport through taxi for 4:10pm. Bedside nurse, Scott is aware. Pt states he is able to ambulate due to residing close to hospital. Taxi voucher has been provided to [facility].
--- NOTE | 2024-08-16 10:28 | PC.CM ---
I sent out referral to all home health agencies. Pending response.
--- NOTE | 2024-08-17 08:21 | PC.CC ---
[facility] accepted the pt. [facility]. Start of care date is 08/18/2024.
== END 2024-08-15 16:10 | disposition home health service (06) | DRG 690 ==
LOC: SERX 16:25 → SERHOLD 20:08 → S3NX 08-14 06:44
PROVIDERS: Student in an Organized Health Care Education/Training Program; Admitting Provider Student in an Organized Health Care Education/Training Program; Emergency Provider Emergency Medicine; Visit Provider Student in an Organized Health Care Education/Training Program
DX: N39.0 Urinary tract infection, site not specified (principal); G93.40 Encephalopathy, unspecified; I10 Essential (primary) hypertension; D50.9 Iron deficiency anemia, unspecified; M54.9 Dorsalgia, unspecified; G89.29 Other chronic pain; M48.02 Spinal stenosis, cervical region; F15.10 Other stimulant abuse, uncomplicated; E87.6 Hypokalemia; Z66 Do not resuscitate; Z55.5 Less than a high school diploma; I45.10 Unspecified right bundle-branch block; Z79.899 Other long term (current) drug therapy; B96.89 Other specified bacterial agents as the cause of diseases classified elsewhere; F12.90 Cannabis use, unspecified, uncomplicated
CPT/HCPCS: 36415; 71045; 80048; 80053; 80061; 80307; 80320; 81001; 83036; 83605; 83690; 83735; 83880; 84100; 84145; 84443; 84484; 85025; 85610; 85730; 87040; 87077; 87086; 87186; 93005; 93225; 96361; 96365; 96367; 97162; 99291; G0378; J0696; J1644; J1885; J2543; J3411; J3480; J7030; J7050; J7999; A9270; G0480

== ENCOUNTER 2024-08-23 08:57 | Outpatient (AMB) | payer MEDICARE, MEDICAID, SELFPAY ==
[2024-08-23 09:38] VITALS: BP 149/78; PULSE 86; RESP 18; TEMP 36.8; O2SAT 97; BMI 31.6
--- NOTE | 2024-08-23 09:38 | ACNOTE_ITS ---
Vital Signs 08/23/24 09:38 Height 1.73 m Height Method Stated Weight 94.347 kg Weight Measurement Method Standing Scale BMI 31.6 BP 149/78 H Blood Pressure Source Automatic Cuff Blood Pressure Location Right Upper Arm Position Sitting Respiration 18 Pulse 86 Pulse Source Monitor Temp 98.2 F Temp Source Temporal Artery Scan Pulse Oximetry (%) 97 Oxygen Delivery Method Room Air Allergies/Meds Allergies & Medications Allergies No Known Allergies Allergy (Verified 08/29/24 09:34) Medication Reconciliation DME Order Set (Quad cane) #1 ea 08/23/24 [Rx Confirmed 08/29/24] levofloxacin 750 mg tablet 750 mg PO QDAY #14 tabs 08/23/24 [Rx Confirmed 08/29/24] lidocaine 5 % topical patch (Lidoderm) 3 patch topical QDAY #30 ea 08/23/24 [Rx Confirmed 08/29/24] oxycodone-acetaminophen 5 mg-325 mg tablet (Percocet) 1 tab PO TID PRN pain #20 tabs 08/29/24 [Rx] MA Intake Visit Data Collection New Patient or Established: Established Patient (seen at [facility] within 3 years) Seen by Clinical Staff ONLY (RN/MA): No Pain Present Currently: No Pain scale:: 0 Pain Scale Used: Suh-Coel/Numerical Community Association Manager Required: No PCP or OBGYN visit in last 3 months: No Date of Last PCP or OBGYN visit: 08/30/24 Hx Now: No Do You Feel Safe at Home: Yes Authorities Contacted: N/A Smoking Status Smoking Status: Never smoker Immunization / Flu Flu Vaccine in the Last 12 Months: No Flu Vaccine Exclusion Criteria: Refused by Patient Past Medical History Past Medical History CARDIAC: Negative Congestive Heart Failure RESPIRATORY: Positive Sleep Apnea; Negative Chronic Obstructive Pulmonary Disease (COPD) GENITOURINARY: Negative Renal Disease ENDOCRINE: Negative Diabetes Mellitus Type 1 or Diabetes Mellitus Type 2 Social History SMOKING STATUS: Smoking status: Never smoker ALCOHOL: Alcohol Intake: Former HOUSING: Housing: Apartment LIVES WITH: Lives With: Alone Patient Portal Questionmeera Social History Living Situation History Housing: Apartment Housing Other:: Pt lives alone Tobacco History Smoking Status: Never smoker Alcohol History Alcohol Intake: Former Substance Use History Substance Use: Meth and marijuana Domestic Abuse History Do You Feel Safe at Home: Yes Review of Systems Report any current symptoms Only answer those that you have currently: Past Medical History Past Medical History Have you ever been diagnosed with any of the following: Cardiology Problems Congestive Heart Failure: No Respiratory Problems Chronic Obstructive Pulmonary Disease (COPD): No Sleep Apnea: Yes Genital/Urinary Problems Renal Disease: No Endocrine Problems Diabetes Mellitus Type 1: No Diabetes Mellitus Type 2: No History of Present Illness HPI Narrative Patient is a 69-year-old male with a past medical history of hypertension, history of skull fracture, iron deficiency anemia, substance abuse disorder, severe chronic backache due to spinal stenosis, who is here for follow-up following discharge from the hospital. Patient was recently admitted to the hospital on 08/13/2024 for acute toxic encephalopathy , likely secondary to methamphetamine use and E. coli bacteremia and UTI. The patient was discharged with p.o. antibiotic levofloxacin based off sensitivities, the patient reported that he only took 2 days worth of levofloxacin after discharge and then misplaced his bottles. The patient has not taken any antibiotics for the past 6 days. Patient denied having fever, chills or urinary symptoms. Patient agreed to restarting his antibiotics, will recent prescription for 14 days of Levaquin 750 mg daily, recommended patient repeat blood cultures. Currently the patient complains of severe back and and difficulty walking, requesting cane. Patient pain is poorly managed, has not been prescribed opioids previously, was prescribed gabapentin but he stopped taking it saying it did not help. But reports he takes marijuana due to severe pain and it seems to help. Spoke with the patient about trying low-dose Percocet, he demonstrated understanding, went over adverse events, daily dose max. Of note, patient brought in a POLST form, we went over the understanding of CODE STATUS, life-saving measures, artificial feeds, patient's current illnesses , the patient denied being depressed, or under influence. the patient decided to be DNR/DNI. Patient demonstrated understanding of the decision, POLST form was signed in accordance to patient's wishes. Review of Systems Review of Systems Narrative Review of Systems: General: Denies fevers or chills HEENT: Denies congestion or sore throat Heart: Denies chest pain or palpitations Lungs: Denies shortness of breath or cough Abdomen: Denies diarrhea, nausea, vomiting, constipation, bright red blood per rectum or melena Genitourinary: Denies frequency, urgency, dysuria, or hematuria Musculoskeletal: Complains of severe back pain, and difficulty walking. Neurology: Denies any numbness, tingling Review of systems otherwise negative except what is mentioned above. Objective/Exam Narrative Physical exam: General: AOx3, cooperative but uncomfortable due to pain Skin: Intact, no cyanosis or edema noted. HEENT: Atraumatic/normocephalic, JUNAID, neck supple Heart: RRR, S1 and S2 without clicks or murmurs Lungs: Clear on auscultation bilaterally, no difficulty breathing Abdomen: Soft, nontender. Bowel sounds present . Vascular: Peripheral pulses palpable Neuro: No focal neurological deficits noted. No tenderness/swelling noted on palpation of spine. Assessment & Plan Diagnosis / Problem List (1) Back pain: Status: Acute Assessment & Plan: The patient complains of severe back and and difficulty walking, requesting cane. Patient pain is poorly managed, has not been prescribed opioids previously, was prescribed gabapentin but he stopped taking it saying it did not help. But reports he takes marijuana due to severe pain and it seems to help. Spoke with the patient about trying low-dose Percocet, he demonstrated understanding, went over adverse events, daily dose max. Plan: - Percocet 5/325mg 2-3 times daily - Lidocaine patch (2) Sepsis secondary to UTI: Status: Acute Assessment & Plan: Patient was recently admitted to the hospital on 08/13/2024 for acute toxic encephalopathy , likely secondary to methamphetamine use and E. coli bacteremia and UTI. The patient was discharged with p.o. antibiotic levofloxacin based off sensitivities, the patient reported that he only took 2 days worth of levofloxacin after discharge and then misplaced his bottles. The patient has n ot taken any antibiotics for the past 6 days. Patient denied having fever, chills or urinary symptoms. Patient agreed to restarting his antibiotics, will resend prescription for 14 days of Levaquin 750 mg daily, recommended patient repeat blood cultures. Plan: - Levofloxacin 750mg qday for 14 days - Repeat blood cultures - Repeat urinalysis - US abdomen to r/o ascending uti/pyleonephritis Orders: Orders Urinalysis 08/23/24 Cici Gamboa MD A41.9 - Sepsis, unspecified organism, M54.9 - Dorsalgia, unspecified, N39.0 - Urinary tract infection, site not specified US abdomen 08/23/24 Cici Gamboa MD A41.9 - Sepsis, unspecified organism, N39.0 - Urinary tract infection, site not specified Blood Culture (Lab) 08/23/24 Cici Gamboa MD A41.9 - Sepsis, unspecified organism, N39.0 - Urinary tract infection, site not specified CBC 08/23/24 Cici Gamboa MD Iron Panel 08/23/24 Cici Gamboa MD A41.9 - Sepsis, unspecified organism, N39.0 - Urinary tract infection, site not specified Renal Function Panel 08/23/24 Cici Gamboa MD Additional Assessment Plan of care discussed with MD Bee Paredes pgy 2 Advanced Care Planning Advance care planning discussed with:: patient Office Procedures [facility] Level of Care Nursing/Assessment Patient Status: Established Patient Nursing Assessment/Reassessment: Medication Reconciliation, Update PMH in EMR and Vital Signs Coordination of Care: Complex Care and Chronic Disease 1-5, Consent,records obtained, informed consent, Education Simp Pt/Fam and Staff clarify orders Established Patient Charge Established Patient Point Assignment: 85 Established Patient Point Charge: EP Level 3 (80-115)
== END 2024-08-23 10:45 | disposition home or self-care (01) ==
LOC: HODAHC 08:57
PROVIDERS: PCP Student in an Organized Health Care Education/Training Program; Referring Provider Student in an Organized Health Care Education/Training Program; Supervising Provider Internal Medicine; Visit Provider Student in an Organized Health Care Education/Training Program
DX: N39.0 Urinary tract infection, site not specified (principal); M54.9 Dorsalgia, unspecified; R26.2 Difficulty in walking, not elsewhere classified
CPT/HCPCS: 99213; G0463

== ENCOUNTER 2024-08-29 09:03 | Outpatient (AMB) | payer MEDICARE, MEDICAID, SELFPAY ==
[2024-08-29 09:33] VITALS: BP 130/75; PULSE 96; RESP 18; TEMP 36.4; O2SAT 96; BMI 32.3
--- NOTE | 2024-08-29 09:33 | PD.RESCLINIC ---
Vital Signs 08/29/24 09:33 Height 1.73 m Height Method Stated Weight 96.672 kg Weight Measurement Method Standing Scale BMI 32.3 BP 130/75 Blood Pressure Source Automatic Cuff Blood Pressure Location Right Upper Arm Position Sitting Respiration 18 Pulse 96 Pulse Source Monitor Temp 97.6 F Temp Source Temporal Artery Scan Pulse Oximetry (%) 96 Oxygen Delivery Method Room Air Allergies/Meds Allergies & Medications Allergies No Known Allergies Allergy (Verified 08/29/24 09:34) Medication Reconciliation DME Order Set (Quad cane) #1 ea 08/23/24 [Rx Confirmed 08/29/24] levofloxacin 750 mg tablet 750 mg PO QDAY #14 tabs 08/23/24 [Rx Confirmed 08/29/24] lidocaine 5 % topical patch (Lidoderm) 3 patch topical QDAY #30 ea 08/23/24 [Rx Confirmed 08/29/24] oxycodone-acetaminophen 5 mg-325 mg tablet (Percocet) 1 tab PO TID PRN pain #20 tabs 08/29/24 [Rx] MA Intake Visit Data Collection New Patient or Established: Established Patient (seen at [facility] within 3 years) Seen by Clinical Staff ONLY (RN/MA): No Pain Present Currently: No Pain scale:: 0 Pain Scale Used: Suh-Cole/Numerical [employer] Required: No PCP or OBGYN visit in last 3 months: No Hx Now: No Do You Feel Safe at Home: Yes Authorities Contacted: N/A Smoking Status Smoking Status: Never smoker Immunization / Flu Flu Vaccine in the Last 12 Months: No Flu Vaccine Exclusion Criteria: Already Received Past Medical History Past Medical History CARDIAC: Negative Congestive Heart Failure RESPIRATORY: Positive Sleep Apnea; Negative Chronic Obstructive Pulmonary Disease (COPD) GENITOURINARY: Negative Renal Disease ENDOCRINE: Negative Diabetes Mellitus Type 1 or Diabetes Mellitus Type 2 Social History SMOKING STATUS: Smoking status: Never smoker ALCOHOL: Alcohol Intake: Former HOUSING: Housing: Apartment LIVES WITH: Lives With: Alone Patient Portal [facility] Social History Living Situation History Housing: Apartment Housing Other:: Pt lives alone Tobacco History Smoking Status: Never smoker Alcohol History Alcohol Intake: Former Substance Use History Substance Use: Meth and marijuana Domestic Abuse History Do You Feel Safe at Home: Yes Review of Systems Report any current symptoms Only answer those that you have currently: Past Medical History Past Medical History Have you ever been diagnosed with any of the following: Cardiology Problems Congestive Heart Failure: No Respiratory Problems Chronic Obstructive Pulmonary Disease (COPD): No Sleep Apnea: Yes Genital/Urinary Problems Renal Disease: No Endocrine Problems Diabetes Mellitus Type 1: No Diabetes Mellitus Type 2: No History of Present Illness HPI Narrative Patient is a 69-year-old male with a past medical history of skull fracture, iron deficiency anemia, substance abuse disorder, severe chronic backache due to spinal stenosis, who is here for follow-up appointment regarding labs. Unfortunately patient did not obtain labs yet. Patient states he has been feeling well on the levofloxacin for the UTI, still has been taking them and has 1 more week to complete. Patient denies any fever, chills, nausea vomiting, abdominal pain, diarrhea, or any side effects from medication. Patient doing well on the oxy and would like another refill as it helps him with movement and physical therapy. Patient has no other active complaint at this time. Objective/Exam Narrative Physical exam: General: AOx3, cooperative but uncomfortable due to pain Skin: Intact, no cyanosis or edema noted. HEENT: Atraumatic/normocephalic, JUNAID, neck supple Heart: RRR, S1 and S2 without clicks or murmurs Lungs: Clear on auscultation bilaterally, no difficulty breathing Abdomen: Soft, nontender. Bowel sounds present . Vascular: Peripheral pulses palpable Neuro: No focal neurological deficits noted. No tenderness/swelling noted on palpation of spine. Assessment & Plan Diagnosis / Problem List (1) Back pain: Status: Acute Qualifiers: Back pain location: back pain in unspecified location Chronicity: unspecified Back pain laterality: unspecified Qualified Code(s): M54.9 - Dorsalgia, unspecified Assessment & Plan: The patient states back pain is doing much better now on oxycodone and lidocaine patch. Patient is working with physical therapy, which is recommending further therapy upon completion at home. Patient advised to come with paperwork for further referral regarding physical therapy. Patient requesting more oxycodone as he is close to finishing it. Advised patient to start taking gabapentin for the nerve pain which is what will help the best, he said he will try again. Patient states he still has some at home and would not like refills at this time. Plan: Continue Percocet 5/325mg 2-3 times daily Continue lidocaine patch Restart gabapentin at nighttime. Continue with physical therapy. (2) Acute UTI: Status: Acute Assessment & Plan: Patient continues on levofloxacin to complete course of antibiotics. Has 1 more week left. Patient denying any burning on urination or symptoms of UTI. Patient did not get lab done. Will complete course of antibiotics and should he have any more symptoms he will follow-up at office again for UA. Plan: Complete levofloxacin course. Plan Refill percocet, continue physical therapy, restart gabapentin. Complete course of antibiotics. Follow up PRN. Advanced Care Planning Advance care planning discussed with:: patient Office Procedures [facility] [place] Level of Care Nursing/Assessment Patient Status: Established Patient Nursing Assessment/Reassessment: Medication Reconciliation, Update PMH in EMR and Vital Signs Coordination of Care: Complex Care and Chronic Disease 1-5, Consent,records obtained, informed consent, Education Simp Pt/Fam and Staff clarify orders Established Patient Charge Established Patient Point Assignment: 85 Established Patient Point Charge: EP Level 3 (80-115)
== END 2024-08-29 10:38 | disposition home or self-care (01) ==
LOC: HODAHC 09:03
PROVIDERS: Supervising Provider Internal Medicine; Visit Provider Student in an Organized Health Care Education/Training Program
DX: N39.0 Urinary tract infection, site not specified (principal); M54.9 Dorsalgia, unspecified
CPT/HCPCS: 99213; G0463